=== PATIENT | female | born 1950 | race Caucasian/White ===

== ENCOUNTER 2025-03-19 16:25 | Emergency (ER) | payer MEDICARE, SELFPAY ==
--- OUTSIDE RECORDS SUMMARY | 2021-05-13 10:13 | XMS_ITS | Continuity of Care Document ---
Author Organization [facility] Address [address] [place] [phone] Phone Care Team Providers Care Integration Software Engineer Name Role Phone Will Robert ECKERT Unavailable Unavailabl e Allergies, Adverse Reactions, Alerts Substance Reaction Status Criticality No Known Allergies Active No Inform ation Medications Medication Instructions Dosage Effective Dates (start - stop) Status Comments GABAPENTIN 300 MG CAPSULE *PER QUENTIN*TAKE 4 CAPSULES BY ORAL ROUTE 3 TIMES EVERY DAY. INCREASE GRADUALLY DIRECTED 600 MG - Active CYCLOBENZAPRINE HCL (unknown strength) take 1 tablet by ORAL route 2 times every day prn Not Available - Active Cymbalta 60 mg capsule,delayed release take 1 capsule by oral route 2 times every day 60 MG - Active WELLBUTRIN (unknown strength) take 1 tablet by oral route 2 times every day Not Available - Active Synthroid 200 mcg tablet take 1 tablet by oral route every day 200 MCG - Active Procedures Procedure Date BILATERAL N BLOCK INJ, OCCIPTAL 015 Lidocaine injection Betamethasone acet&sod phosp OFFICE/OUTPATIENT VISIT, EST OFFICE/OUTPATIENT VISIT, NEW Advance Directives Directive Yes / No Effective Date File Name No Information Encounters Encounter Description Practice Location Reason(s) For Visit Diagnoses Date Provider Providers Copied on Encounter [facility], [address] [place] [address], [id number], [place] tel:[phone] [facility] No Information 2 Will Robert. [address], [place], [id number], [place]. tel:[phone] [facility], [address] [place] [address], [place], [id number], [place] tel:[phone] [facility] [place] No Information Jun- 5 No Information [facility], [address] [place] [address], [id number], [place] tel:[phone] [facility] [place] Occipital neuralgia Mar-2 5 [facility]. [address], [place], [id number], [place]. tel:[phone] Referring Provider: Wendy Taylor [facility] [address] [place], [address]. tel:[phone] OFFICE/OUTPAT IENT VISIT, [facility], [address] [place] [address], [id number], [place] tel:[phone] [facility] [place] left shoulder pain (chief complaint)N wendy pain (chief complaint)h eadache (chief complaint) Occipital neuralgiaOsteo arthrosis, generalized, involving unspecified sitePain in joint involving shoulder regionMuscle wastingCarpal Tunnel Syndrome May-2 5 No Information Referring Provider: Emilie Diop [facility] [address] [place], [address]. tel:[phone] OFFICE/OUTPAT IENT VISIT, [facility], [address] [place] [address], [id number], [place] tel:[phone] [facility] [place] Neck pain (chief complaint)l eft shoulder pain (chief complaint) Muscle wastingPain in joint involving shoulder regionOsteoart hrosis, generalized, involving unspecified siteCarpal Tunnel Syndrome Mar-0 5 No Information Referring Provider: Wendy Taylor [facility] [address] [place], [address]. tel:[phone] Family History Family Member Type Diagnosis Age At Onset No Information Payers Payer name Insurance type Covered republican ID Authoriza tion(s) Medicare [place] [id number] [facility] [id number] Social History Type Description Quantity Date Captured Comments Sex Female Smoking Status No Information Chief Complaint And Reason For Visit No Information Reason For Referral Reason For Referral No Information History Of Present Illness Encounter Date Complaint History Of Prese nt Illness headache Location is fron raghav left, frontal right, ocular left, ocular right, temporal left, temporal right and occipital. There is radiation to anterior and neck. The describes it as blinding and throbbing. Symptom is aggravated by head position. Relieving factors include heat and position. Associated symptoms include neck stiffness and visual aura. Neck pain The severity of the problem is moderate. Duration: chronic. The problem has worsened. The frequency of pain is constant. Location of pain is bilateral anterior neck, bilateral lateral neck, bilateral posterior neck and left shoulder. There is radiation of pain to the left upper arm, left elbow, bilateral forearm, bilateral wrist and bilateral hand. The patient describes the pain as aching, burning, sharp and tingling. Aggravating factors include lifting, rotation and turning head. Relieving factors include heating pad. 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 Therapist may consider TENS unit.We again discussed referral to an orthopedist for surgical consultation of bilateral carpal tunnel syndrome.May consider RFA for cervical pain; this was briefly discussed today. Patient reports increased headaches related to increased muscle tension.She has successfully titrated gabapentin dose to 1800 mg/day. Appointment scheduled 08/13 at [place]. Gabapentin increased to goal dose of 1800 mg/day; verbal and written directions provided for titration. Medication risks, benefits and side effects were discussed with the patient. The patient verbalized an understanding of the plan. left shoulder pain Duration: chr onic. Location: left shoulder. Neck pain Onset: 6 years a go. The problem is severe. Duration: chronic. The frequency of pain is constant. Location of pain is bilateral anterior neck, bilateral posterior neck and left shoulder. There is radiation of pain to the left upper arm, left elbow, bilateral forearm, bilateral wrist, bilateral hand and bilateral 5th finger. The patient describes the pain as burning, sharp and Numbness. Relieving factors include rest. left shoulder pain (comments) Ms Venus Daniel presents for a new patient evaluation, referred by Dr. Taylor of [facility], for neck and left arm pain. Patient states the greatest location of pain is her lateral deltoid, however, as pain worsens, severity is diffuse of the upper arm. 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 She states she has since favored this arm, utilizing her left upper extremity infrequently. She has had her orthopedic surgeon perform imaging post-surgery; patient states no anomoly was noted by the provider. A recent EMG, by patient report, did state patient has bilateral carpal tunnel syndrome; she has not pursued treatment for this. She states she has performed physical therapy in the past which has not provided any relief; she does work out at the [facility] 3-5 days/week. Epidural steroid injections have been administered to cervical spine without relief; patient does state MRI has shown narrowing of where my spinal nerves are. Patient currently is taking gabapentin 300 mg tid and has never trialed a higher dose. She states Lyrica was trialed in the past with adverse effects. She currently has prescription for oxycodone, prescribed last summer. Patient states she infrequently uses this; a dose taken over caused a severe headache that sent patient to the ED. Of note, patient has also been referred to a specialist at [place] for evaluation; this appointment is in July 2014. left shoulder pain Onset: 5 year s ago. Duration: chronic. Severity level is moderate-severe. It occurs constantly and is fluctuating. Location: left shoulder. The pain radiates to the left arm. The pain is burning, numbness and tingling. Context: left shoulder replacement. The pain is aggravated by lifting. The pain is relieved by heat and Immobility. Functional Status Date Functional Assessmen t No Information Instructions Date Instruction Additional Infor mation No Information Assessments Type Assessment Date No Information Patient Care Teams Name Effective Dates (start - stop) Status Members No Information
--- OUTSIDE RECORDS SUMMARY | 2022-06-29 06:33 | XMS_ITS | Continuity of Care Document ---
Author Organization [facility] Address [address] [address] [place] [address] Phone Care Team Providers Care Market Asset Protection Manager Name Role Phone John Yu MD Unavailable Unavailabl e Allergies, Adverse Reactions, Alerts Substance Reaction Status Criticality No Known Allergies Active No Inform ation Medications Medication Instructions Dosage Effective Dates (start - stop) Status Comments mirtazapine 7.5 mg tablet take 1 tablet by oral route every day at bedtime 7.5 MG - Active nortriptyline 10 mg capsule take 1 capsule by oral route every day at bedtime 10 MG - Active levothyroxine 100 mcg capsule take 1 capsule by oral route every day 100 MCG - Active methocarbamol 500 mg tablet take 2 tablet by oral route 4 times every day 1000 MG - Active omeprazole 20 mg tablet,delayed release - Active triamcinolone acetonide 0.1 % lotion apply by topical route 2 times every day a thin layer to the affected area(s) 0.00 - Active ketoconazole 2 % topical cream apply by topical route every day to the affected area(s) 0.00 - Active Wellbutrin XL 150 mg 24 hr tablet, extended release take 1 tablet by oral route every day 150 MG - Active Tums 200 mg calcium (500 mg) chewable tablet - Active acetaminophen 500 mg capsule take 1 capsule by oral route every 6 hours as needed 500 MG Dec-09-2022 - Active amlodipine 5 mg tablet take 1 tablet by oral route every day 5 MG - Active cholecalciferol (vitamin D3) 50 mcg (2,000 unit) capsule take 1 capsule by oral route every day after completion of 8 weeks of the 50,000IU 1 capsule - Active furosemide 20 mg tablet take 1 tablet by oral route every day 20 MG - Active diclofenac 1 % topical gel apply 2 gram by topical route 4 times every day to the affected area(s) 2.00 gram - Active pantoprazole 40 mg tablet,delayed release take 1 tablet by oral route every day 40 MG - Active Procedures Procedure Date Offic/outpt E&m [facility] Wojciech 2 Advance Directives Directive Yes / No Effective Date File Name No Information Encounters Encounter Description Practice Location Reason(s) For Visit Diagnoses Date Provider Providers Copied on Encounter [facility], [address] [address], [place], [id number], [place] tel:[phone] [facility] No Information 3 Anuj Lopez. [address] [facility], [facility] [address], [place], [place], [id number], [place]. tel:[phone] Offic/outpt E&m [facility], [address] [address], [place], [id number], [place] tel:[phone] [facility] Comment (chief complaint) Incontinence of feces, unspecified fecal incontinence typeChest wall painGastroesophag eal reflux disease, unspecified whether esophagitis presentBloating 2 No Information Referring Provider: Chayito Oneil, [address], [place], [address]. tel:[phone] [facility], [address] [address], [place], [id number], [place] tel:[phone] No Information 2 No Information Referring Provider: Chayito Oneil, [address], [place], [address]. tel:[phone] Family History Family Member Type Diagnosis Age At Onset No Information Immunizations Vaccine Date Status Comments SARS-COV-2 (COVID-19) vaccin e, mRNA, spike protein, LNP, bivalent booster, preservative free, 30 mcg/0.3 mL dose, jt-sucrose formulation administered Note: [facility] bi-d irectional interface ; Source: Other Registry influenza, high-dose seasona l, quadrivalent, .7mL dose, preservative free administered Note: [facility] bi-direct ional interface ; Source: Other Registry SARS-COV-2 (COVID-19) vaccin e, mRNA, spike protein, LNP, preservative free, 30 mcg/0.3mL dose administered Note: [facility] bi-direct ional interface ; Source: Other Registry SARS-COV-2 (COVID-19) vaccin e, mRNA, spike protein, LNP, preservative free, 100 mcg/0.5mL dose or 50 mcg/0.25mL dose administered Note: [facility] bi -directional interface ; Source: Other Registry influenza, high-dose seasona l, quadrivalent, .7mL dose, preservative free administered Note: [facility] bi-direct ional interface ; Source: Other Registry SARS-COV-2 (COVID-19) vaccin e, mRNA, spike protein, LNP, preservative free, 100 mcg/0.5mL dose or 50 mcg/0.25mL dose administered Note: [facility] bi -directional interface ; Source: Other Registry SARS-COV-2 (COVID-19) vaccin e, mRNA, spike protein, LNP, preservative free, 100 mcg/0.5mL dose or 50 mcg/0.25mL dose administered Note: [facility] bi -directional interface ; Source: Other Registry influenza, high-dose seasona l, quadrivalent, .7mL dose, preservative free administered Note: [facility] bi-direct ional interface ; Source: Other Registry zoster vaccine recombinant administered N ote: [facility] bi-directional interface ; Source: Other Registry influenza, high dose seasona l, preservative-free administered Note: [facility] bi-direct ional interface ; Source: Other Registry influenza, high dose seasona l, preservative-free administered Note: [facility] bi-direct ional interface ; Source: Other Registry influenza, high dose seasona l, preservative-free administered Note: [facility] bi-direct ional interface ; Source: Other Registry Pneumovax 23 administered Note: [facility] bi-d irectional interface ; Source: Other Registry influenza, high dose seasona l, preservative-free administered Note: [facility] bi-direct ional interface ; Source: Other Registry influenza, high dose seasona l, preservative-free administered Note: [facility] bi-direct ional interface ; Source: Other Registry Prevnar 13 administered Note: [facility] bi-d irectional interface ; Source: Other Registry zoster vaccine, live administered Note: [facility] bi-directional interface ; Source: Other Registry Influenza, injectable,quadrivalent, preservative free, pediatric administered Note: [facility] bi-directional interface ; Source: Other Registry Influenza, seasonal, injecta ble, preservative free administered Note: [facility] bi-direct ional interface ; Source: Other Registry Influenza, seasonal, injecta ble, preservative free administered Note: [facility] bi-direct ional interface ; Source: Other Registry Pneumovax 23 administered Note: [facility] bi-d irectional interface ; Source: Other Registry tetanus toxoid, reduced diphtheria toxoid, and acellular pertussis vaccine, adsorbed administered Note: [facility] b i-directional interface ; Source: Other Registry influenza virus vaccine, unspecified formulation administered Note: [facility] bi-di rectional interface ; Source: Other Registry influenza virus vaccine, unspecified formulation administered Note: [facility] bi-di rectional interface ; Source: Other Registry influenza virus vaccine, unspecified formulation administered Note: [facility] bi-di rectional interface ; Source: Other Registry influenza virus vaccine, unspecified formulation administered Note: [facility] bi-di rectional interface ; Source: Other Registry influenza virus vaccine, unspecified formulation administered Note: [facility] bi-di rectional interface ; Source: Other Registry Influenza, seasonal, injectable administe red Note: [facility] bi- directional interface ; Source: Other Registry Influenza, seasonal, injectable administe red Note: [facility] bi- directional interface ; Source: Other Registry Influenza, seasonal, injectable administe red Note: [facility] bi- directional interface ; Source: Other Registry Payers Payer name Insurance type Covered alliance party ID Authoriza tion(s) [employer] [facility] [id number] Social History Type Description Quantity Date Captured Comments Sex Female Smoking Status No Information Chief Complaint And Reason For Visit No Information Reason For Referral Reason For Referral No Information Plan Of Treatment Date Type Action Status Referral Ordered: Breath Test Fructose Appointment date/timeframe: 03/15/2022 [id number] Ordered: Breath Test Glucose Appointment date/timeframe: 03/15/2022 ordered History Of Present Illness Encounter Date Complaint History Of Prese nt Illness Comment Arely is a 71-y ear-old female who was referred by Dr. Lawton for evaluation of fecal incontinence.The patient has primary medical history including arthritis, moderate depression, bilateral extremity edema, hypothyroidism, and incontinence of feces.Primary care note was reviewed from Dr. Lawton on 02/27/2022. At that time, the patient was re-establishing care and reporting fecal incontinence for the past 6-9 months, reporting that she sees some fecal matter in between her bowel movements. She has several bowel movements per day, denies any diarrhea, melena, or blood in her stools. She also reports urinary incontinence, which has been chronic.Currently, the patient reports she has been having chest pain. She states pain can be on the left side or right side or just central on top of her sternum. At times, her pain can be reproducible with pressing on her chest. She states her pain is not related to food intake. Food does not worsen or improve her pain. She does not notice heartburn or reflux symptoms. She states she at times has dysphagia, but that is very high up in her oropharynx and this is related secondary to past neck surgeries. She denies any other dysphagia or sensation of food getting stuck, midsternum or lower. She does have worsening chest pain with exertion as well as with deep breathing. She currently takes omeprazole 20 mg per day. She states she has had past upper endoscopies and colonoscopies with Emilie Summers. She states she is up-to-date with colon cancer screening. She believes, it was about 2 years ago and normal.In regards to the patient's fecal incontinence, she thought this was just related to old age. She also has some urinary incontinence. She states intermittently she will have some [place] type 7 stools noted in her underwear, which she states is embarrassing. This will happen in between bowel movements. The patient does report majority of her stools are [place] type 4, normal formed stools. She can have up to 5 stools in a day. This is affecting quality of life.The patient denies any change in bowel pattern, this has been going on for several years now. She denies any blood in her stools, hematochezia, melena, unintentional weight loss. She does report lots of musculoskeletal pain in general. She states she has had a change in her overall mobility now requiring to use a scooter, previously using a walker. She reports ongoing back issues, hip and her back giving out as well as her legs giving out with. Following the appointment, the clinical assistant gm of content & delivery did come in and the patient did add onto her story that she at times will have a right lower quadrant pain that feels like a rolling sensation like there is a baby in there. Functional Status Date Functional Assessmen t No Information Instructions Date Instruction Additional Infor mation No Information Assessments Type Assessment Date No Information Patient Care Teams Name Effective Dates (start - stop) Status Members No Information
--- OUTSIDE RECORDS SUMMARY | 2025-02-02 07:54 | XMS_ITS | Encounter Summary ---
Author Organization [facility] Address [address] [address] Care Team Providers Care Manager Of Community Relations Name Role Phone [facility] Unavailable Merrick Olivas MD Unavailable Merrick lOivas MD Unavailable Lorna Hurt PA-C Unavailable Rebekah Lowery [facility] Unavailable Cayla Kumar SUPPORT SERVICES REP Unavailable [phone] Cayla Leavitt PA-C Unavailable Brenda Duval DO Unavailable [phone] Brenda Duval DO Unavailable [phone] Brooks Kang PhD LP Unavailable Cayla Leavitt PA-C Unavailable Saskia Lowe MD Primary Care Provider [phone] Saskia Lowe MD Unavailable Reason for Visit * ReasonCommentsHeadache Encounter Details DateTypeDepartmentCare Team (Latest Contact Info)Vbrhzhzkdke20/09/2025 7:54 AM CHLORINE PLANT OPERATOR - 02/02/2025 1:06 PM [facility] [address] [place] [address] Bogdan Deal MD [facility] [address] [place], [place] [phone] Nonintractable headache, unspecified chronicity pattern, unspecified headache type (Primary Dx); Neck pain on left side; Traumatic subdural hematoma, subsequent encounter; Sacral pain Discharge Disposition: Home or Self Care Social History Tobacco UseTypesPacks/DayYears UsedDateSmoking Tobacco: FormerCigarettes Smokeless Tobacco: Never Comments:Very small amount - 2 years. Infrequent Alcohol UseStandard Drinks/WeekCommentsNo0 (1 standard drink = 0.6 oz pure alcohol)B1300 Health LiteracyAnswerDate RecordedHow often do you need to have someone help you when you read instructions, pamphlets, or other written material from your doctor or pharmacy?Cxfgfisox37/13/2025UDIT-CAnswerDate RecordedQ1: How often do you have a drink containing alcohol?Never01/06/2025Q2: How many drinks containing alcohol do you have on a typical day when you are drinking?Patient does not drink01/06/2025Q3: How often do you have six or more drinks on one occasion?Never01/06/2025PHQ-2AnswerDate RecordedPHQ-2 Score3 01/31/2025[facility] - Occupational Stress QuestionnaireAnswerDate RecordedDo you feel stress - tense, restless, nervous, or anxious, or unable to sleep at night because yourmind is troubled all the time - these days?To some drlhhg8501/06/2025Exercise Vital SignAnswerDate Recorded On average, how many days per week do you engage in moderate to strenuous exercise (like a brisk walk)?3 days01/06/2025On average, how many minutes do you engage in exercise at this level?10 min01/06/2025dolescent EducationAnswerDate RecordedGetting School Help NeededNot on file12/17/2022Social ConnectionsAnswer Date RecordedHow often do you feel lonely or isolated from those around you? Often01/06/2025Food InsecurityAnswerDate RecordedWithin the past 12 months, did you worry that your food would run out before you got money to buy more?Yes 01/31/2025Within the past 12 months, did the food you bought just not last and you didn???t have money to getmore?Yes01/31/2025Housing StabilityAnswerDate RecordedDo you have housing? (Housing is defined as stable permanent housing and does not include staying outside in a car, in a tent, in an abandoned building, in an overnight assisted, or couch-surfing.)Yes01/31/2025re you worried about losing your housing?Yes01/31/2025Financial Resource StrainAnswerDate Recorded Within the past 12 months, have you or your family members you live with been unable to get utilities (heat, electricity) when it was really needed?Yes 01/31/2025Transportation NeedsAnswerDate RecordedWithin the past 12 months, has lack of transportation kept you from medical appointments, getting your medicines, non-medical meetings or appointments, work, or from getting things that you need?No01/31/2025Interpersonal SafetyAnswerDate RecordedDo you feel physically and emotionally safe where you currently live?No01/06/2025Within the past 12 months, have you been hit, slapped, kicked or otherwise physically hurt by someone?No01/06/2025Within the past 12 months, have you been humiliated or emotionally abused in other ways by your partner or ex-partner?No01/06/2025 CommentsNoSex and Gender InformationValueDate RecordedSex Assigned at BirthNot on fileLegal RlpRjbvpv62/04/2012 3:21 AM CSTGender IdentityNot on file Sexual OrientationNot on filedocumented as of this encounter Last Filed Vital Signs Vital SignReadingTime TakenCommentsBlood Tsuyrtwa163/6602/02/2025 10:00 AM CHLORINE PLANT OPERATOR Whvdl253902/02/2025 10:00 AM CNHMqmslshkmfw72.5 ??C (97.7 ??F)02/02/2025 7:57 AM CSTRespiratory Vzpd805904/04/2024 7:57 AM CSTOxygen Cwzycifssd62%02/02/2025 8:00 AM CSTInhaled Oxygen Concentration--Weight--Height--Body Mass Index--documented in this encounter Functional Status * Calculated C-SSRS Risk Score (Lifetime/Recent)AnswerDate of AssessmentAuthorNo Risk Fuwvadgyl51/09/2025 8:00 AM Danay Gonzalez RN * [place] Suicide Severity Rating Scale (Screener/Recent Self-Report)Question AnswerDate of AssessmentAuthor1. Wish to be (Past 1 Month)No02/02/2025 8:00 AM Danay Gonzalez RN2. Non-Specific Active Suicidal Thoughts (Past 1 Month)No02/02/2025 8:00 AM Danay Gonzalez RN6. Suicidal Behavior (Lifetime)No02/02/2025 8:00 AM Danay Gonzalez RN documented as of this encounter Discharge Instructions * Discharge Instructions* Bogdan Deal MD - 02/02/2025 9:55 AM CHLORINE PLANT OPERATOR Your CT imaging today fortunately does not show any worsening or new bleed. You can take Tylenol as needed for headache. Follow-up with your primary care doctor on Monday Discharge Instructions Headache You were seen today for a headache. Headaches may be caused by many different things such as muscletension, sinus inflammation, anxiety and stress, having too little sleep, too much alcohol, some medical conditions or injury. You may have a migraine, which is caused by changes in the blood vesselsin your head. At this time your provider does not find that your headache is a sign of anything almonte erous or life-threatening. However, sometimes the signs of serious illness do not show up right away. Generally, every Emergency Department visit should have a follow-up clinic visit with either a primary or a specialty clinic/provider. Please follow-up as instructed by your emergency provider today. Return to the Emergency Department if: You get a new fever of 100.4??F or higher. Your headache gets much worse. You get a stiff neck with your headache. You get a new headache that is significantly different or worse than headaches you have had before. You are vomiting (throwing up) and cannot keep food or water down. You have blurry or double vision or other problems with your eyes. You have a new weakness on one side of your body. You have difficulty with balance which is new. You or your family thinks you are confused. You have a seizure. What can I do to help myself? Pain medications - You may take a pain medication such as Tylenol?? (acetaminophen), Advil??, Motrin?? (ibuprofen) or Aleve?? (naproxen). Take a pain reliever as soon as you notice symptoms. Starting medications as soon as you start to have symptoms may lessen the amount of pain you have. Relaxing in a quiet, dark room may help. Get enough sleep and eat meals regularly. You may need to watch for certain foods or other things which may trigger your headaches. Keeping ajournal of your headaches and possible triggers may help you and your primary provider to identify things which you should avoid which may be causing your headaches. If you were given a prescription for medicine here today, be sure to read all of the information (including the package insert) that comes with your prescription. This will include important information about the medicine, its side effects, and any warnings that you need to know about. The pharmacist who fills the prescription can provide more information and answer questions you may have about the medicine. If you have questions or concerns that the pharmacist cannot address, please call or return to the Emergency Department. Remember that you can always come back to the Emergency Department if you are not able to see your regular provider in the amount of time listed above, if you get any new symptoms, or if there is anything that worries you. RINE PLANT OPERATOR RINE PLANT OPERATOR documented in this encounter Medications at Time of Discharge MedicationSigDispense QuantityRefillsLast FilledStart DateEnd Date acetaminophen (TYLENOL) 500 MG tablet Indications:Chronic bilateral low back pain with bilateral sciatica2 TABLETS (1000MG) BY MOUTH THREE TIMES DAILY 30 tablet 07/12/2024 amitriptyline (ELAVIL) 10 MG tablet Take 10 mg by mouth at bedtime. Through Psychiatrist amLODIPine (NORVASC) 5 MG tablet Indications:Essential hypertensionTake 1 tablet (5 mg) by mouth at bedtime. 90 tablet calcium carbonate-vitamin D (OSCAL) 250-3.125 MG-MCG TABS per tablet Take 1 tablet by mouth 2 times daily cycloSPORINE (RESTASIS) 0.05 % ophthalmic emulsion Indications:Dry eyesPlace 1 drop into both eyes 2 times daily. 5.5 mL 12/13/2024 diclofenac (VOLTAREN) 1 % topical gel Indications:Chronic bilateral low back pain without sciaticaApply 2 g topically 4 times daily as needed for moderate pain. 100 g escitalopram (LEXAPRO) 5 MG tablet Take 5 mg by mouth daily. Through Psychiatrist famotidine (PEPCID) 20 MG tablet Take 20 mg by mouth 2 times daily furosemide (LASIX) 20 MG tablet Indications:Leg edemaTake 1 tablet (20 mg) by mouth daily 30 tablet pantoprazole (PROTONIX) 40 MG EC tablet Take 40 mg by mouth 2 times daily. polyethylene glycol (MIRALAX) 17 GM/Dose powder Indications:Slow transit constipationTake 17 g (1 Capful) by mouth daily. 510 g 07/02/2024 Polyethylene Glycol 400 (BLINK TEARS) 0.25 % GEL Place 0.05 mLs into both eyes every 8 hours as needed (prn). QUEtiapine (SEROQUEL) 25 MG tablet Take 37.5 mg by mouth at bedtime. Through Psychiatrist senreyna-docusate (SENOKOT-S/PERICOLACE) 8.6-50 MG tablet Indications:Slow transit constipationTake 1 tablet by mouth daily. 90 tablet 07/08/2024 traMADol (ULTRAM) 50 MG tablet Take 50 mg by mouth every 6 hours as needed for severe pain. triamcinolone (KENALOG) 0.1 % external lotion Apply topically 2 times daily as needed for irritation.11/03/2023 calcium carbonate (SM ANTACID) 500 MG chewable tablet Indications:Gastroesophageal reflux disease without esophagitisTake 1 tablet (500 mg) by mouth daily. 30 tablet levothyroxine (SYNTHROID/LEVOTHROID) 112 MCG tablet Indications:Hypothyroidism, unspecified typeTake 1 tablet (112 mcg) by mouth daily. 90 tablet documented as of this encounter ED Notes * Bogdan Deal MD - 02/02/2025 8:12 AM CST Emergency Department Note History of Present Illness Chief Complaint Headache HPI Arely Daniel is a 74 year old female with a history of anemia, hypertension, hyperlipidemia, hypothyroidism, CHF, amongst others presenting with headache. The patient report she had a fall 4 days ago (01/29/25) that caused a subdural hematoma, for which she was hospitalized for a day. Since being discharged to her living facility, Arely has had a headache which has been progressively worse and no one has come to check on her. Aerly explains doing everything on her own has been too much. The headache has radiated pain to the left-side of her neck and tingling in the left cheek. Arely overall states she is upset with how her facility has handled treatment. Nothing taken to relieve the pain. Denies dizziness, speech or visual changes, nausea or vomiting. Independent Historian None Review of External Notes I reviewed the 01/30/25 discharge summary from [facility] for a traumatic subdural hematoma from a fall. Past Medical History Medical History and Problem List Anemia due to blood loss Anxiety Cervical spondylosis without myelopathy Depression DJD (degenerative joint disease), lumbar Dysphagia Essential hypertension Gait instability Gastroesophageal reflux disease without esophagitis Hyperlipidemia Insomnia Major depressive disorder Meniere's disease Mild cognitive impairment Hypothyroidism Physical deconditioning Primary osteoarthritis of left knee Psoriasis Major neurocognitive disorder Borderline personality disorder Diastolic congestive heart failure Chronic pain syndrome Avascular necrosis of bone Chronic dyspnea Edentulous Adrenal nodule Cortical senile cataract Aseptic bony necrosis Presbyopia Medications Acetaminophen Amlodipine Calcium carbonate Lasix Synthroid Miralax Senokot-S Amitriptyline Lexapro Pepcid Protonix Seroquel Surgical History Laparoscopic gastric bypass Appendectomy Right knee surgery Tonsillectomy and adenoidectomy Total knee arthroplasty, right (x4) Total knee arthroplasty, left Shoulder surgery Left foot surgery Retinal surgery, left Cataract removal, bilateral Cholecystectomy Physical Exam Patient Vitals for the past 24 hrs: BP Temp Temp src Pulse Resp SpO2 02/02/25 1000 (!) 149/66 -- -- 60 -- -- 02/02/25 0800 135/87 -- -- 69 -- 97 % 02/02/25 0759 135/87 -- -- 69 -- 98 % 02/02/25 0757 (!) 151/82 97.7 ??F (36.5 ??C) Oral 67 18 96 % Physical Exam General: Alert, no acute distress Neuro: Oriented x 4. Pupils 3 mm and reactive to light b/l. EOMI. No focal deficits; CN II-XII grossly intact. 5/5 BUE strength with flag signaler and elbow flexion/extension. 5/5 BLE strength with SLR and ankle dorsiflexion/plantarflexion. SILT to BUE/BLE. HEENT: Moist mucous membranes. Conjunctiva normal. TMs clear bilaterally CV: RRR, no m/r/g, skin warm and well perfused Pulm: CTAB, no wheezes/ronchi/rales. No acute distress, breathing comfortably MSK: Moving all extremities. No focal areas of edema, erythema; no midline spine tenderness; mild left side neck soft tissue tenderness, no masses. Skin: WWP, no rashes, skin color normal, no diaphoresis Diagnostics Lab Results Labs Ordered and Resulted from Time of ED Arrival to Time of ED Departure ISTAT BASIC CHEM ICA HEMATOCRIT POCT - Abnormal Result Value Chloride POCT 105 Potassium POCT 4.2 Sodium POCT 139 UREA NITROGEN POCT 12 Calcium, Ionized Whole Blood POCT 5.0 Glucose Whole Blood POCT 83 Anion Gap POCT 14.0 Hemoglobin POCT 10.5 (*) Hematocrit POCT 31 (*) Creatinine POCT 0.8 TOTAL CO2 POCT 26 Imaging CTA Head Neck with Contrast Final Result IMPRESSION: HEAD CT: 1. Less conspicuous degree of irregular hyperattenuation along the anterior falx, which could be new accounts representative of nonspecific dural thickening or a trace subdural hemorrhage. HEAD CTA: 1. No significant stenosis, aneurysm, or high flow vascular malformation identified. 2. Variant bois forte of Dumont anatomy as above. NECK CTA: 1. No hemodynamically significant stenosis in the neck vessels. 2. No evidence for dissection. Head CT w/o contrast Final Result IMPRESSION: HEAD CT: 1. Less conspicuous degree of irregular hyperattenuation along the anterior falx, which could be new accounts representative of nonspecific dural thickening or a trace subdural hemorrhage. HEAD CTA: 1. No significant stenosis, aneurysm, or high flow vascular malformation identified. 2. Variant bois forte of Dumont anatomy as above. NECK CTA: 1. No hemodynamically significant stenosis in the neck vessels. 2. No evidence for dissection. XR Sacrum and Coccyx 2 Views (Results Pending) EKG None Independent Interpretation I personally reviewed patient's CT head imaging fortunately without evidence of new or worsened intracranial bleed. ED Course Medications Administered Medications iohexol (OMNIPAQUE) 350 MG/ML injectable solution 71 mL (71 mLs Intravenous $Given 02/02/25 0834) sodium chloride (PF) 0.9% PF flush 100 mL (100 mLs Intravenous $Given 02/02/25 0834) acetaminophen (TYLENOL) tablet 1,000 mg (1,000 mg Oral $Given 02/02/25 1000) Procedures Procedures Discussion of Management None ED Course ED Course as of 02/02/25 1638 Sun Feb 02, 2025 0811 I obtained the history and examined the patient as noted above. 1031 I rechecked and updated the patient. 1031 I rechecked and updated the patient. 1102 I rechecked and updated the patient. 1102 I discussed discharge instructions with the patient. Patient agreeable to discharge. Additional Documentation None Medical Decision Making / Diagnosis [facility] Diagnoses: None MIPS None MDM Arely Daniel is a 74 year old female presenting to the emergency department for evaluation of headache and left-sided neck pain and ongoing sacral pain. She was seen here 4 days ago after a fall with noted subdural hematoma and on CT, stable after 6 hours of repeat imaging. She is otherwise neurologically intact without any focal deficits and denies any further falls. She has no midline cervical spine tenderness, cervical spine is cleared clinically. Given her recent fall and subdural hematoma, we did repeat imaging fortunately without evidence of worsening SDH. Vessel imaging without evidence of dissection or other acute abnormality. Radiograph of the sacrum without any acute pathology. She is otherwise ambulatory here in the emergency department. Overall suspect ongoing headache from recent head injury/subdural hematoma but fortunately there is no evidence of progression. No signs/symptoms worrisome for infection requiring LP. With reasonable clinical certainty I do feel that she safe to discharge home. Recommend Tylenol and close outpatient follow-up with her primary care doctor regarding her ER visit today and she is comfortable this plan. Discussed return precautions for theER. All questions were answered prior to discharge Disposition The patient was discharged. Diagnosis ICD-10-CM 1. Nonintractable headache, unspecified chronicity pattern, unspecified headache type R51.9 2. Neck pain on left side M54.2 3. Traumatic subdural hematoma, subsequent encounter S06.5XAD 4. Sacral pain M53.3 Discharge Medications New Prescriptions No medications on file Scribe Disclosure: Bettye Indira Hurtado, am serving as a scribe at 8:17 AM on 02/02/2025 to document services personally performed by Bogdan Deal MD based on my observations and the provider's statements tome. Bogdan Deal MD 02/02/25 1642 RINE PLANT OPERATOR * Danay Harper RN - 02/02/2025 7:55 AM CST Patient coming in via EMS from assisted living. fall, diagnosed with brain bleed, has had headache since then, headache progressively getting worse. ABCs intact. RINE PLANT OPERATOR * Astrid Chavez RN - 02/02/2025 7:54 AM CST Bed: ED16 Expected date: Expected time: Means of arrival: Comments: [address] 74F headache, discharged 2 days ago, hx of brain bleed RINE PLANT OPERATOR documented in this encounter Plan of Treatment DateTypeDepartmentCare Team (Latest Contact Info)Imlokqtfqsu76/12/2026 10:00 AM CSTOffice Visit [facility] [address] [place] [address] Cayla Leavitt PA-C [address] [place] [id number] documented as of this encounter Goals GoalPatient Goal TypeAssociated ProblemsRecent ProgressPatient-Stated?Author Establish Stable Housing Care PlanSDOH LACK OF STABLE [id number]%(04/28/2023 10:06 AM CHLORINE PLANT OPERATOR)NoReese, Alessia K, SUPPORT SERVICES REP Note: Barriers: I am unhappy where I am living. I have a cat. Strengths: I have a [facility] Elderly Waiver Headwaitress Patient expressed understanding of goal: Yes Action steps to achieve this goal: 1. I will begin looking for a new place to live. [facility] [place] will assist me with connecting with Elderly Waiver Headwaitress about this 2. I will find a resource that an help me with moving my belongings. Care coordination will assist as needed. [facility] ECC DEP WELCOME- GOAL TEMPLATE Care PlanMYC ECC DEP WELCOME- PROBLEM TEMPLATENoBackground, Analytics [facility] ECC DEP WELCOME- GOAL TEMPLATE Care PlanMYC ECC DEP WELCOME- PROBLEM TEMPLATENoBackground, Analyticsdocumented as of this encounter Procedures Procedure NamePriorityDate/TimeAssociated DiagnosisCommentsXR SACRUM AND COCCYX 2 QACZAFUVH47/09/2025 10:31 AM CHLORINE PLANT OPERATOR ISTAT BASIC CHEM ICA HEMATOCRIT QKWYKKUA33/09/2025 8:55 AM CHLORINE PLANT OPERATOR CTA HEAD NECK W HFWDZTDIIEKR86/09/2025 8:48 AM [address]INE PLANT [address]PERATOR [address] HEAD W/O PJPZWCEICSLH01/09/2025 8:48 AM CHLORINE PLANT OPERATOR EXTRA NJVKYSVE25/09/2025 8:04 AM CHLORINE PLANT OPERATOR EXTRA PURPLE TOP HHOVSQDJ07/09/2025 8:04 AM CHLORINE PLANT OPERATOR EXTRA GREEN TOP (LITHIUM HEPARIN) CCKUWZZZ60/09/2025 8:04 AM CHLORINE PLANT OPERATOR EXTRA RED TOP ARRBSPHT28/09/2025 8:04 AM CHLORINE PLANT OPERATOR EXTRA BLUE TOP WQOUCPNV38/09/2025 8:04 AM CHLORINE PLANT OPERATOR documented in this encounter Results * XR Sacrum and Coccyx 2 Views (02/02/2025 10:31 AM CHLORINE PLANT OPERATOR)Anatomical Region LateralityModalityAbdomen/PelvisDigital RadiographySpecimen (Source)Anatomical Location / LateralityCollection Method / VolumeCollection TimeReceived Time 02/02/2025 10:31 AM CHLORINE PLANT OPERATOR Impressions 02/02/2025 10:34 AM CHLORINE PLANT OPERATOR IMPRESSION: Mild degenerative arthrosis of both SI joints. Lower lumbar facet arthropathy and degenerative interspace narrowing. Diffuse osseous demineralization. No definite fracture. Narrative 02/02/2025 10:34 AM CHLORINE PLANT OPERATOR EXAM: XR SACRUM AND COCCYX 2 VIEWS LOCATION: [facility] DATE: 02/02/2025 INDICATION: Pain, recent fall COMPARISON: 01/29/2025 Procedure Note Pepito Belle, - 02/02/2025 EXAM: XR SACRUM AND COCCYX 2 VIEWS LOCATION: [facility] DATE: 02/02/2025 INDICATION: Pain, recent fall COMPARISON: 01/29/2025 IMPRESSION: Mild degenerative arthrosis of both SI joints. Lower lumbarfacet arthropathy and degenerative interspace narrowing. Diffuse osseous demineralization. No definite fracture. Authorizing ProviderResult TypeResult StatusEdonesimo Deal MDIMG DIAGNOSTIC IMAGING ORDERABLESFinal Result * (ABNORMAL) iStat Basic Chem ICA Hematocrit, POCT (02/02/2025 8:55 AM CHLORINE PLANT OPERATOR) ComponentValueRef RangeTest MethodAnalysis TimePerformed AtPathologist SignatureChloride [id number] mmol/L mmol/L104/04/2024 8:58 AM [facility] POCPotassium POCT4.23.4 - 5.3 mmol/L104/04/2024 8:58 AM [facility] POCSodium [id number] - 145 mmol/L104/04/2024 8:58 AM [facility] POCUREA NITROGEN VUNT351 - 23 mg/dL02/02/2025 8:58 AM [facility] POCCalcium, Ionized Whole Blood POCT5.04.4 - 5.2 mg/dL02/02/2025 8:58 AM [facility] POCGlucose Whole Blood [id number] - 99 mg/dL02/02/2025 8:58 AM [facility] POCAnion Gap POCT14.07.0-15.0 mmol/L mmol/L104/04/2024 8:58 AM [facility] POCHemoglobin POCT10.5(L)11.7 - 15.7 g/dL02/02/2025 8:58 AM [facility] POCHematocrit POCT31(L)35-47 % %02/02/2025 8:58 AM [facility] POCCreatinine POCT0.80.5 - 1.0 mg/dL02/02/2025 8:58 AM [facility] POCTOTAL CO2 BXVQ29guwq/L104/04/2024 8:58 AM [facility] POC Specimen (Source)Anatomical Location / LateralityCollection Method / Volume Collection TimeReceived TimeBlood, venousBLOOD SPECIMEN / Wedskyf8202/02/2025 8:55 AM CST02/02/2025 8:58 AM CHLORINE PLANT OPERATOR Narrative Authorizing ProviderResult TypeResult StatusEdonesimo KELLER POCTFinal ResultPerforming OrganizationAddressCity/State/ZIP CodePhone Number LABORATORY [facility] [address] (1st floor, no room number) [place] [address] * CTA Head Neck with Contrast (02/02/2025 8:48 AM CHLORINE PLANT OPERATOR)Anatomical Region LateralityModalityHead, SUBRAD CT NEURO, SUBRAD CT NEURO, UMP CT NEURO, RAD CT Computed TomographySpecimen (Source)Anatomical Location / LateralityCollection Method / VolumeCollection TimeReceived Time02/02/2025 8:48 AM CHLORINE PLANT OPERATOR Impressions 02/02/2025 9:45 AM CHLORINE PLANT OPERATOR IMPRESSION: HEAD CT: 1. ??Less conspicuous degree of irregular hyperattenuation along the anterior falx, which could be new accounts representative of nonspecific dural thickening or a trace subdural hemorrhage. HEAD CTA: 1. ??No significant stenosis, aneurysm, or high flow vascular malformation identified. 2. ??Variant bois forte of [place] anatomy as above. NECK CTA: 1. ??No hemodynamically significant stenosis in the neck vessels. 2. ??No evidence for dissection. Narrative 02/02/2025 9:45 AM CHLORINE PLANT OPERATOR EXAM: CT HEAD W/O CONTRAST, CTA HEAD NECK W CONTRAST LOCATION: [facility] DATE: 02/02/2025 INDICATION: Headache, recent fall with known SDH COMPARISON: 01/30/2025, 09/15/2022 CONTRAST: 71mL Omnipaque 350 TECHNIQUE: Head and neck CT angiogram with IV contrast. Noncontrast head CT followed by axial helical CT images of the head and neck vessels obtained during the arterial phase of intravenous contrastadministration. Axial 2D reconstructed images and multiplanar 3D MIP reconstructed images of the head and neck vessels were performed by the technologist. Dose reduction techniques were used. All stenosis measurements made according to NASCET criteria unless otherwise specified. FINDINGS: NONCONTRAST HEAD CT: INTRACRANIAL CONTENTS: No definitive intracranial hemorrhage is visualized. There is a unchanged hyperattenuating irregularity along the anterior falx which could be secondary to dural thickening butappears slightly less conspicuous when compared to the 01/30/[address] evidence of acute infarct. Mild presumed chronic small vessel ischemic changes. Mild to moderate degree of cerebral parenchymal volume loss. No hydrocephalus. VISUALIZED ORBITS/SINUSES/MASTOIDS: No intraorbital abnormality. No paranasal sinus mucosal disease. No middle ear or mastoid effusion. BONES/SOFT TISSUES: No acute abnormality. HEAD CTA: ANTERIOR CIRCULATION: No stenosis/occlusion, aneurysm, or high flow vascular malformation. origin of the right posterior cerebral artery from the anterior circulation. POSTERIOR CIRCULATION: No stenosis/occlusion, aneurysm, or high flow vascular malformation. Balanced vertebral arteries supply a normal basilar artery. DURAL VENOUS SINUSES: Expected enhancement of the major dural venous sinuses. NECK CTA: RIGHT CAROTID: No measurable stenosis or dissection. LEFT CAROTID: No measurable stenosis or dissection. VERTEBRAL ARTERIES: No focal stenosis or dissection. Balanced vertebral arteries. AORTIC ARCH: Classic aortic arch anatomy with no significant stenosis at the origin of the great vessels. NONVASCULAR STRUCTURES: Unremarkable. Procedure Note Rocky Mendez DO - 02/02/2025 EXAM: CT HEAD W/O CONTRAST, CTA HEAD NECK W CONTRAST LOCATION: [facility] DATE: 02/02/2025 INDICATION: Headache, recent fall with known SDH COMPARISON: 01/30/2025, 09/15/2022 CONTRAST: 71mL Omnipaque 350 TECHNIQUE: Head and neck CT angiogram with IV contrast. Noncontrast headCT followed by axial helical CT images of the head and neck vesselsobtained during the arterial phase of intravenous contrast administration.Axial 2D reconstructed images and multiplanar 3D MIP reconstructed images of the head and neck vessels were performed by the technologist. Dose reduction techniques were used. Allstenosis measurements made according to NASCET criteria unless otherwisespecified. FINDINGS: NONCONTRAST HEAD CT: INTRACRANIAL CONTENTS: No definitive intracranial hemorrhage isvisualized. There is a unchanged hyperattenuating irregularity along theanterior falx which could be secondary to dural thickening but appearsslightly less conspicuous when compared to the 01/30/[address] evidence of acute infarct. Mild presumed chronicsmall vessel ischemic changes. Mild to moderate degree of cerebralparenchymal volume loss. No hydrocephalus. VISUALIZED ORBITS/SINUSES/MASTOIDS: No intraorbital abnormality. Noparanasal sinus mucosal disease. No middle ear or mastoid effusion. BONES/SOFT TISSUES: No acute abnormality. HEAD CTA: ANTERIOR CIRCULATION: No stenosis/occlusion, aneurysm, or high flowvascular malformation. origin of the right posterior cerebral arteryfrom the anterior circulation. POSTERIOR CIRCULATION: No stenosis/occlusion, aneurysm, or high flowvascular malformation. Balanced vertebral arteries supply a normal basilarartery. DURAL VENOUS SINUSES: Expected enhancement of the major dural venoussinuses. NECK CTA: RIGHT CAROTID: No measurable stenosis or dissection. LEFT CAROTID: No measurable stenosis or dissection. VERTEBRAL ARTERIES: No focal stenosis or dissection. Balanced vertebralarteries. AORTIC ARCH: Classic aortic arch anatomy with no significant stenosis atthe origin of the great vessels. NONVASCULAR STRUCTURES: Unremarkable. IMPRESSION: HEAD CT: 1. Less conspicuous degree of irregular hyperattenuation along theanterior falx, which could be new accounts representative of nonspecific duralthickening or a trace subdural hemorrhage. HEAD CTA: 1. No significant stenosis, aneurysm, or high flow vascular malformation identified. 2. Variant bois forte of [place] anatomy as above. NECK CTA: 1. No hemodynamically significant stenosis in the neck vessels. 2. No evidence for dissection. Authorizing ProviderResult TypeResult AlisaEdonesimo Deal [facility] CT ORDERABLESFinal Result * Head CT w/o contrast (02/02/2025 8:48 AM CH[employer]INE PL[employer] OPERATOR)Anatomical RegionLaterality ModalityHead, SUBRAD CT NEURO, SUBRAD CT NEURO, UMP CT NEURO, RAD CTComputed TomographySpecimen (Source)Anatomical Location / LateralityCollection Method / VolumeCollection TimeReceived Time02/02/2025 8:48 AM [employer]INE [employer] OPERATOR Impressions 02/02/2025 9:45 AM CHL[employer]INE PLANT OPERATOR IMPRESSION: HEAD CT: 1. ??Less conspicuous degree of irregular hyperattenuation along the anterior falx, which could be new accounts representative of nonspecific dural thickening or a trace subdural hemorrhage. HEAD CTA: 1. ??No significant stenosis, aneurysm, or high flow vascular malformation identified. 2. ??Variant bois forte of [place] anatomy as above. NECK CTA: 1. ??No hemodynamically significant stenosis in the neck vessels. 2. ??No evidence for dissection. Narrative 02/02/2025 9:45 AM CHLORINE PLANT OPERATOR EXAM: CT HEAD W/O CONTRAST, CTA HEAD NECK W CONTRAST LOCATION: [facility] DATE: 02/02/2025 INDICATION: Headache, recent fall with known SDH COMPARISON: 01/30/2025, 09/15/2022 CONTRAST: 71mL Omnipaque 350 TECHNIQUE: Head and neck CT angiogram with IV contrast. Noncontrast head CT followed by axial helical CT images of the head and neck vessels obtained during the arterial phase of intravenous contrastadministration. Axial 2D reconstructed images and multiplanar 3D MIP reconstructed images of the head and neck vessels were performed by the technologist. Dose reduction techniques were used. All stenosis measurements made according to NASCET criteria unless otherwise specified. FINDINGS: NONCONTRAST HEAD CT: INTRACRANIAL CONTENTS: No definitive intracranial hemorrhage is visualized. There is a unchanged hyperattenuating irregularity along the anterior falx which could be secondary to dural thickening butappears slightly less conspicuous when compared to the 01/30/[address] evidence of acute infarct. Mild presumed chronic small vessel ischemic changes. Mild to moderate degree of cerebral parenchymal volume loss. No hydrocephalus. VISUALIZED ORBITS/SINUSES/MASTOIDS: No intraorbital abnormality. No paranasal sinus mucosal disease. No middle ear or mastoid effusion. BONES/SOFT TISSUES: No acute abnormality. HEAD CTA: ANTERIOR CIRCULATION: No stenosis/occlusion, aneurysm, or high flow vascular malformation. origin of the right posterior cerebral artery from the anterior circulation. POSTERIOR CIRCULATION: No stenosis/occlusion, aneurysm, or high flow vascular malformation. Balanced vertebral arteries supply a normal basilar artery. DURAL VENOUS SINUSES: Expected enhancement of the major dural venous sinuses. NECK CTA: RIGHT CAROTID: No measurable stenosis or dissection. LEFT CAROTID: No measurable stenosis or dissection. VERTEBRAL ARTERIES: No focal stenosis or dissection. Balanced vertebral arteries. AORTIC ARCH: Classic aortic arch anatomy with no significant stenosis at the origin of the great vessels. NONVASCULAR STRUCTURES: Unremarkable. Procedure Note Rocky Mendez - 02/02/2025 EXAM: CT HEAD W/O CONTRAST, CTA HEAD NECK W CONTRAST LOCATION: [facility] DATE: 02/02/2025 INDICATION: Headache, recent fall with known SDH COMPARISON: 01/30/2025, 09/15/2022 CONTRAST: 71mL Omnipaque 350 TECHNIQUE: Head and neck CT angiogram with IV contrast. Noncontrast headCT followed by axial helical CT images of the head and neck vesselsobtained during the arterial phase of intravenous contrast administration.Axial 2D reconstructed images and multiplanar 3D MIP reconstructed images of the head and neck vessels were performed by the technologist. Dose reduction techniques were used. Allstenosis measurements made according to NASCET criteria unless otherwisespecified. FINDINGS: NONCONTRAST HEAD CT: INTRACRANIAL CONTENTS: No definitive intracranial hemorrhage isvisualized. There is a unchanged hyperattenuating irregularity along theanterior falx which could be secondary to dural thickening but appearsslightly less conspicuous when compared to the 01/30/[address] evidence of acute infarct. Mild presumed chronicsmall vessel ischemic changes. Mild to moderate degree of cerebralparenchymal volume loss. No hydrocephalus. VISUALIZED ORBITS/SINUSES/MASTOIDS: No intraorbital abnormality. Noparanasal sinus mucosal disease. No middle ear or mastoid effusion. BONES/SOFT TISSUES: No acute abnormality. HEAD CTA: ANTERIOR CIRCULATION: No stenosis/occlusion, aneurysm, or high flowvascular malformation. origin of the right posterior cerebral arteryfrom the anterior circulation. POSTERIOR CIRCULATION: No stenosis/occlusion, aneurysm, or high flowvascular malformation. Balanced vertebral arteries supply a normal basilarartery. DURAL VENOUS SINUSES: Expected enhancement of the major dural venoussinuses. NECK CTA: RIGHT CAROTID: No measurable stenosis or dissection. LEFT CAROTID: No measurable stenosis or dissection. VERTEBRAL ARTERIES: No focal stenosis or dissection. Balanced vertebralarteries. AORTIC ARCH: Classic aortic arch anatomy with no significant stenosis atthe origin of the great vessels. NONVASCULAR STRUCTURES: Unremarkable. IMPRESSION: HEAD CT: 1. Less conspicuous degree of irregular hyperattenuation along theanterior falx, which could be new accounts representative of nonspecific duralthickening or a trace subdural hemorrhage. HEAD CTA: 1. No significant stenosis, aneurysm, or high flow vascular malformation identified. 2. Variant bois forte of [place] anatomy as above. NECK CTA: 1. No hemodynamically significant stenosis in the neck vessels. 2. No evidence for dissection. Authorizing ProviderResult TypeResult Mary Deal [facility] [place] ORDERABLESFinal Result * Extra Purple Top Tube (02/02/2025 8:04 AM CH[employer]INE PLANT OPERATOR)ComponentValueRef RangeTest MethodAnalysis TimePerformed AtPathologist SignatureHold LijlbnibEMI38/09/2025 9:17 AM [facility] LABORATORYSpecimen (Source)Anatomical Location / Laterality Collection Method / VolumeCollection TimeReceived TimeBloodBLOOD SPECIMEN / UnknownVenipuncture / Suolhnf6802/02/2025 8:04 AM CST02/02/2025 8:10 AM CHL[employer]INE PLANT OPERATOR Narrative Authorizing ProviderResult TypeResult [facility] HospitalBogdan Deal [facility] - BLOOD ORDERABLESFinal ResultPerforming OrganizationAddressCity/State/ZIP CodePhone Number [facility] [address] (1st floor, no room number) [place] [phone] [place] [address] * Extra Green Top (Nunda Heparin) Tube (02/02/2025 8:04 AM CH[employer]INE [employer]ANT OPERATOR)ComponentValue Ref RangeTest MethodAnalysis TimePerformed AtPathologist SignatureHold EwmqsxywMRP33/09/2025 9:17 AM [facility] LABORATORYSpecimen (Source)Anatomical Location / LateralityCollection Method / VolumeCollection TimeReceived Time BloodBLOOD SPECIMEN / UnknownVenipuncture / Uujuzxf1702/02/2025 8:04 AM CH[employer]INE PLANT OPERATOR 02/02/2025 8:10 AM CHL[employer]INE [employer]ANT OPERATOR Narrative Authorizing ProviderResult TypeResult Mary Deal [facility] - BLOOD ORDERABLESFinal ResultPerforming OrganizationAddressCity/State/ZIP CodePhone Number [facility] [address] Lab (1st floor, no room number) [place] [address] * Extra Red Top Tube (02/02/2025 8:04 AM CH[employer]INE [employer] OPERATOR)ComponentValueRef RangeTest Method Analysis TimePerformed AtPathologist SignatureHold LxuygdpyYWO69/09/2025 9:17 AM [facility] LABORATORYSpecimen (Source)Anatomical Location / LateralityCollection Method / VolumeCollection TimeReceived TimeBloodBLOOD SPECIMEN / Unknown Venipuncture / Vgbiazo7502/02/2025 8:04 AM CST02/02/2025 8:10 AM CHL[employer]INE PLANT OPERATOR Narrative Authorizing ProviderResult TypeResult StatusKobeonesimo Yong Toyin [facility] - BLOOD ORDERABLESFinal ResultPerforming OrganizationAddressCity/State/ZIP CodePhone Number [facility] [address] [facility] (1st floor, no room number) [place] [address] * Extra Blue Top Tube (02/02/2025 8:04 AM CHL[employer]INE [employer] OPERATOR)ComponentValueRef RangeTest Method Analysis TimePerformed AtPathologist SignatureHold CymkqmezVSX49/09/2025 9:17 AM [facility] LABORATORYSpecimen (Source)Anatomical Location / LateralityCollection Method / VolumeCollection TimeReceived TimeBloodBLOOD SPECIMEN / Unknown Venipuncture / Nycadib2002/02/2025 8:04 AM CST02/02/2025 8:10 AM CHL[employer]INE PLANT OPERATOR Narrative Authorizing ProviderResult TypeResult StatusBogdan Stevensald Toyin [facility] - BLOOD ORDERABLESFinal ResultPerforming OrganizationAddressCity/State/ZIP CodePhone Number [facility] [address] [facility] Lab (1st floor, no room number) [place] [address] documented in this encounter Visit Diagnoses Diagnosis Nonintractable headache, unspecified chronicity pattern, unspecified headache type- Primary Neck pain on left side Cervicalgia Traumatic subdural hematoma, subsequent encounter Sacral pain Disorders of sacrum documented in this encounter Administered Medications Medication OrderMAR ActionAction DateDoseRateSite acetaminophen (TYLENOL) tablet 1,000 mg 1,000 mg, Oral, ONCE, On 02/02/25 at 0955, For 1 dose, Maximum acetaminophen dose from all sources = 75 mg/kg/day not to exceed 4 gram $Given02/02/2025 10:00 AM CST1,000 mg iohexol (OMNIPAQUE) 350 MG/ML injectable solution 71 mL 71 mL, Intravenous, ONCE, On 02/02/25 at 0835, For 1 dose $Given02/02/2025 8:34 AM CST71 mLs Lidocaine (LIDOCARE) 4 % Patch 2 patch 2 patch, Transdermal, Administer over 12 Hours, ONCE, On 02/02/25 at 1110, For 1 dose, Apply patch(s) to left side neck. To prevent lidocaine toxicity, patient should be patch free for 12 hrs daily. Patches may be cut to smaller size prior to removing release liner. Reminder: Remove previous patch before applying new patch. NEVER APPLY HEAT OVER PATCH which increases absorption and may lead tolocal anesthetic toxicity. Do not apply over area where liposomal bupivacaine was injected for 96 hours post injection. Avoid heat exposure to application site or surrounding areas. This includes heat from external sources, such as heating pads, electric blankets, or other equipment. $Patch/Med Pozekqa4902/02/2025 11:14 AM CST2 patchesOther (see comments) sodium chloride (PF) 0.9% PF flush 100 mL 100 mL, Intravenous, ONCE, On 02/02/25 at 0835, For 1 dose $Given02/02/2025 8:34 AM CEN639 mLsdocumented in this encounter Active and Recently Administered Medications Times are shown in [employer]INE [employer] OPERATOR.Medication Order/ acetaminophen (TYLENOL) tablet 1,000 mg (COMPLETED) 1,000 mg, Oral, ONCE, On 02/02/25 at 0955, For 1 dose, Maximum acetaminophen dose from all sources = 75 mg/kg/day not to exceed 4 gram * 1000 ($Given - Provider: Danay Harper RN) iohexol (OMNIPAQUE) 350 MG/ML injectable solution 71 mL (COMPLETED) 71 mL, Intravenous, ONCE, On 02/02/25 at 0835, For 1 dose * 0834 ($Given - Provider: DENY Gomez) Lidocaine (LIDOCARE) 4 % Patch 2 patch 2 patch, Transdermal, Administer over 12 Hours, ONCE, On 02/02/25 at 1110, For 1 dose, Apply patch(s) to left side neck. To prevent lidocaine toxicity, patient should be patch free for 12 hrs daily. Patches may be cut to smaller size prior to removing release liner. Reminder: Remove previous patch before applying new patch. NEVER APPLY HEAT OVER PATCH which increases absorption and may lead tolocal anesthetic toxicity. Do not apply over area where liposomal bupivacaine was injected for 96 hours post injection. Avoid heat exposure to application site or surrounding areas. This includes heat from external sources, such as heating pads, electric blankets, or other equipment. * 1114 ($Patch/Med Applied - Provider: Brittany Melara RN - Comment: 1 applied to left side of neck/shoulder, and 1 to low back/tailbone area.) * 1306 (Due: Patch/Med Removed - Provider: Orders Generic Provider - Comment: Time automatically adjusted from order being discontinued) sodium chloride (PF) 0.9% PF flush 100 mL (COMPLETED) 100 mL, Intravenous, ONCE, On 02/02/25 at 0835, For 1 dose * 0834 ($Given - Provider: DENY Gomez) documented in this encounter Additional Health Concerns Active ProblemsNoted DateDiagnosed DateSDOH LACK OF STABLE TVGPPSL4403/30/2023[facility] DEP WELCOME- PROBLEM NBOHRQKN48/27/2025[facility] E[facility] DEP WELCOME- PROBLEM TEMPLATE 01/27/2025InfectionOnset DateLast IndicatedResolved 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 Source: [employer]. 11/25/2016AssessmentNoted TimePHQ-9 Depression Total Score: 12104/02/2024 12:17 PM CSTdocumented as of this encounter Care Teams Team MemberRelationshipSpecialtyStart DateEnd Date Saskia Lowe MD [address] [place] [address] PCP - GeneralInternal Medicine11/21/24 [facility] ([facility]), ([place])02/15/19 Merrick Olivas MD [address] [place] [address] [place] [address] MDCardiovascular Disease07/27/21 Merrick Olivas MD [address] [place] [address] [place] [address] MDCardiovascular Disease07/27/21 Lorna Hurt PA-C [address] [place] [address] [place] [id number] Physician AssistantUrology08/18/21 Rebekah Lowery, [facility] [address] [id number] PharmacistPharmacist10/13/21 Cayla Kumar LSW [facility] [address] [facility] [address] [place] [address] Lead Care CoordinatorPrimary Care - CC04/27/23 Cayla Leavitt PA-C [address] [place], [place] [id number] Physician AssistantEndocrinology, Diabetes, and Mjfkwucolv72/24/24 Brenda Duval DO [address] [place], [place] [address] PhysicianNeurology1/10/18 Brenda Duval DO [address] [place], [place] [address] Assigned Neuroscience Provider08/16/24 Brooks Kang, PhD LP [address] [place] [phone] Assigned Behavioral Health Provider11/16/24 Cayla Leavitt PA-C [address] [place] [address] Assigned Endocrinology 10/16/24 Saskia Lowe MD [address] [place] [address] Assigned PCP01/23/25documented as of this encounter
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
--- OUTSIDE RECORDS SUMMARY | 2025-02-12 10:00 | XMS_ITS | Encounter Summary ---
Author Organization [place] Address [address] [address] Care Team Providers Care Tax Staff Accountant Name Role Phone [facility] Unavailable Merrick Olivas MD Unavailable Merrick Olivas MD Unavailable Lorna Hurt PA-C Unavailable Rebekah Lowery [facility] Unavailable Cayla Kumar POUND KEEPER Unavailable [phone] Cayla Leavitt PA-C Unavailable Brenda Duval DO Unavailable [phone] Brenda Duval DO Unavailable [phone] Brooks Kang PhD LP Unavailable Cayla Leavitt PA-C Unavailable Saskia Lowe MD Primary Care Provider Saskia Lowe MD Unavailable Reason for Visit * ReasonCommentsPain Encounter Details DateTypeDepartmentCare Team (Latest Contact Info)Hivumdqwhsp38/19/2025 10:00 AM CSTOffice Visit [address] [place] [address] Saskia Lowe MD [address] [place] [address] Sacrococcygeal pain (Primary Dx); Chronic pain syndrome; Essential hypertension; Hypothyroidism, unspecified type Social History Tobacco UseTypesPacks/DayYears UsedDateSmoking Tobacco: FormerCigarettes Smokeless Tobacco: Never Comments:Very small amount - 2 years. Infrequent Alcohol UseStandard Drinks/WeekCommentsNo0 (1 standard drink = 0.6 oz pure alcohol)B1300 Health LiteracyAnswerDate RecordedHow often do you need to have someone help you when you read instructions, pamphlets, or other written material from your doctor or pharmacy?Smkpgmhcg13/13/2025UDIT-CAnswerDate RecordedQ1: How often do you have a drink containing alcohol?Never01/06/2025Q2: How many drinks containing alcohol do you have on a typical day when you are drinking?Patient does not drink01/06/2025Q3: How often do you have six or more drinks on one occasion?Never01/06/2025PHQ-2AnswerDate RecordedPHQ-2 Score3 01/31/2025Finintermountain medical center [place] of Occupational Health - Occupational Stress QuestionnaireAnswerDate RecordedDo you feel stress - tense, restless, nervous, or anxious, or unable to sleep at night because yourmind is troubled all the time - these days?To some apdhqw8301/06/2025Exercise Vital SignAnswerDate Recorded On average, how many [...] in an abandoned building, in an overnight snf, or couch-surfing.)Yes01/31/2025re you worried about losing your [...] InformationValueDate RecordedSex Assigned at BirthNot on fileLegal ObfAljnjt15/04/2012 3:21 AM CSTGender IdentityNot on file Sexual OrientationNot on filedocumented as of this encounter Last Filed Vital Signs Vital SignReadingTime TakenCommentsBlood Eflsamvw598/7702/12/2025 9:37 AM SERVICE DIRECTOR Ezvqt631902/12/2025 9:37 AM YNTUszllvvkqyt34.6 ??C (97.9 ??F)02/12/2025 9:37 AM CSTRespiratory Ovzh4826 9:37 AM CSTOxygen Uggeqzprou02%02/12/2025 9:37 AM CSTInhaled Oxygen Concentration--Vxayxm402.3 kg (230 lb)02/12/2025 9:37 AM IERRudobi993.5 cm (5' 2)02/12/2025 9:37 AM CSTBody Mass Index42.0702/12/2025 9:37 AM CSTdocumented in this encounter Progress Notes * Saskia Lowe MD - 02/12/2025 10:00 AM CST Assessment & Plan Sacrococcygeal pain We reviewed x-ray results and this was discussed with the patient. Patient does receive tramadol which is prescribed by the pain clinic. Patient missed her last appointment with the pain clinic. A communication has been started with social group worker to help reschedule appointment and arrange rides to and from appointment. Baclofen medication can be used as needed for muscle spasms. Medication use and side effect profile discussed with the patient. - baclofen (LIORESAL) 10 MG tablet; Take 1 tablet (10 mg) by mouth 3 times daily as needed for muscle spasms. Chronic pain syndrome Follows up with pain clinic as above. Continue with tramadol as needed for pain. Essential hypertension Blood pressure reviewed, within target. Continue current antihypertensive regimen. Hypothyroidism, unspecified type Patient has not had repeat lab work since recent medication dose adjustments in levothyroxine. Encouraged to complete lab work after today's visit. The longitudinal plan of care for the diagnosis(es)/condition(s) as documented were addressed during this visit. Due to the added complexity in care, I will continue to support Arely in the subsequent management and with ongoing continuity of care. 43 minutes spent by me on the date of the encounter doing chart review, history and exam, documentation and further activities per the note. Subjective Arely is a 74 year old, presenting for the following health issues: Pain 02/12/2025 9:36 AM Additional Questions Roomed by KERRY Clifford Accompanied by Self 02/12/2025 9:36 AM Patient Reported Additional Medications Patient reports taking the following new medications No Musculoskeletal Problem History of Present Illness Reason for visit: Blood blead Symptom onset: 3-7 days ago Symptoms include: Sore neck back Symptom intensity: Severe Symptom progression: Worsening Had these symptoms before: No She is taking medications regularly. Patient comes in today for follow-up. Patient reported having had a fall on 01/29/2025. CT head showed small left anterior parafalcine subdural hematoma measuring 2 mm. Patient was admitted to the observation unit, repeat CT head was stable and patient was discharged back to assisted living facility. Had a return visit to the ED on 02/02/2025 due to persistent headache symptoms,repeat CT scan did not show worsening SDH. Patient has been having concerns of ongoing tailbone pain. Has been participating in PT twice weekly. Has tramadol that patient receives from pain clinic. States that she probably is using it, unsureof what medications are given to her by [facility]. Missed last appointment with 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 Lower lumbar facet arthropathy and degenerative interspace narrowing. Diffuse osseous demineralization. No definite fracture. Patient has expressed the lack of care form [facility] in the past. States it is still the same. Has a tour to [facility] tomorrow. Review of Systems Constitutional, HEENT, cardiovascular, pulmonary, gi and gu systems are negative, except as otherwise noted. Objective Ht 1.575 m (5' 2) LMP (LMP Unknown) No BMI 42.07 kg/m?? Body mass index is 42.07 kg/m??. Physical Exam GENERAL: alert and no distress RESP: lungs clear to auscultation - no rales, rhonchi or wheezes CV: regular rate and rhythm, normal S1 S2 MS: no gross musculoskeletal defects noted, no edema NEURO: Normal strength and tone, mentation intact and speech normal PSYCH: mentation appears normal, affect normal Signed Electronically by: Saskia Lowe MD ICE DIRECTOR documented in this encounter Plan of Treatment DateTypeDepartmentCare Team (Latest Contact Info)Hnqdigipzvy14/12/2026 10:00 AM CSTOffice Visit [facility] [address] [place] [address] Cayla Leavitt PA-C [address] [place], [place] [address] documented as of this encounter Goals GoalPatient Goal TypeAssociated ProblemsRecent ProgressPatient-Stated?Author Establish Stable Housing Care PlanSDOH LACK OF STABLE [id number]%(04/28/2023 10:06 AM SERVICE DIRECTOR)Alessia Rutledge, POUND KEEPER Note: Barriers: I am unhappy where I am living. I have a cat. Strengths: I have a [facility]/ Elderly Waiver Clerical Order Filler Patient expressed understanding of goal: Yes Action steps to achieve this goal: 1. I will begin looking for a new place to live. Cut In Station Operator will assist me with connecting with Elderly Waiver Clerical Order Filler about this 2. I will find a resource that an help me with moving my belongings. Care coordination will assist as needed. MYC ECC DEP WELCOME- GOAL TEMPLATE Care PlanMYC ECC DEP WELCOME- PROBLEM TEMPLATENoBackground, Analytics MYC ECC DEP WELCOME- GOAL TEMPLATE Care PlanMYC ECC DEP WELCOME- PROBLEM TEMPLATENoBackground, Analyticsdocumented as of this encounter Visit Diagnoses Diagnosis Sacrococcygeal pain- Primary Other disorder of coccyx Chronic pain syndrome Essential hypertension Unspecified essential hypertension Hypothyroidism, unspecified type documented in this encounter Additional Health Concerns Active ProblemsNoted DateDiagnosed DateSDOH LACK OF STABLE TVUUOGL6403/30/2023MYC ECC DEP WELCOME- PROBLEM FTAHHLPB73/27/2025MYC ECC DEP WELCOME- PROBLEM TEMPLATE 01/27/2025InfectionOnset DateLast IndicatedResolved 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 Source: [employer]. 11/25/2016AssessmentNoted TimePHQ-9 Depression Total Score: 12104/02/2024 12:17 PM CSTdocumented as of this encounter Care Teams Team MemberRelationshipSpecialtyStart DateEnd Date Saskia Lowe MD [address] [place] [address] PCP - GeneralInternal Medicine11/21/24 [facility] ([place])02/15/19 Merrick Olivas MD [address] [facility] [address] [place] [address] MDCardiovascular Disease07/27/21 Merrick Olivas MD [address] [place] [phone] MDCardiovascular Disease07/27/21 Lorna Hurt PA-C [address] [place] [address] Physician AssistantUrology08/18/21 Rbeekah Lowery, [facility] [address] [address] PharmacistPharmacist10/13/21 Cayla Kumar [employer] [address] [facility] [address] [place], [place] [address] Lead Care CoordinatorPrimary Care - CC04/27/23 Cayla Leavitt PA-C [address] [place] [address] Physician AssistantEndocrinology, Diabetes, and Xuiijeesvm62/24/24 Brenda Duval DO [address] [place] [phone] PhysicianNeurology1/10/18 Brenda Duval DO [address] [place] [phone] Assigned Neuroscience Provider08/16/24 Brooks Kang, PhD LP [address] [place] [phone] Assigned Behavioral Health Provider11/16/24 Cayla Leavitt PA-C [address] [place] [address] Assigned Endocrinology Provider10/16/24 Saskia Lowe MD [address] [place], [place] [address] Assigned PCP01/23/25documented as of this encounter
--- OUTSIDE RECORDS SUMMARY | 2025-03-10 03:03 | XMS_ITS | Continuity of Care Document ---
Author Organization [facility] Address [address] [place] [address] Phone Care Team Providers Care Personal Trainer Name Role Phone RN, RN Unavailable Unavailable Allergies, Adverse Reactions, Alerts Substance Reaction Status Criticality No Known Allergies Active No Inform ation Medications Medication Instructions Dosage Effective Dates (start - stop) Status Comments tizanidine 2 mg tablet take 1 Tablet by Oral route 3 times every day 1 Tablet - Active lidocaine 4 % topical patch - Active triamcinolone acetonide 0.1 % lotion apply by topical route 2 times every day a thin layer to the affected area(s) 0.00 - Active tramadol 50 mg tablet take 1 tablet by oral route every 6 hours as needed 50 MG - Active Synthroid 100 mcg tablet take 1 tablet by oral route every day 100 MCG - Active quetiapine 25 mg tablet take 1 tablet by oral route 2 times every day 25 MG - Active pantoprazole 40 mg tablet,delayed release take 1 tablet by oral route every day 40 MG - Active nortriptyline 10 mg capsule take 1 Capsule by oral route every bedtime 10 MG - Active loperamide 2 mg tablet take 2 tablet by oral route after 1st loose stool and 1 tablet (2 mg) after each next bowel movement; do not exceed 16 mg in 24hrs 4 MG - Active ibuprofen 400 mg tablet take 1 tablet by oral route every 3 - 6 hours as needed 400 MG - Active furosemide 20 mg tablet take 1 Tablet by oral route every day 20 MG - Active famotidine 20 mg tablet take 1 tablet by oral route 2 times every day 20 MG - Active cyclosporine 0.05 % eye drops in a dropperette instill 1 drop by ophthalmic route every 12 hours into affected eye(s) 1.00 drop - Active bupropion HCl XL 150 mg 24 hr tablet, extended release take 1 tablet by oral route every day 150 MG - Active Blink Tears 0.25 % eye drops - Active amlodipine 5 mg tablet take 1 tablet by oral route every bedtime 5 MG - Active acetaminophen 500 mg tablet take 2 tablet by oral route every 8 hours as needed 1000 MG - Active Procedures Procedure Date Psychotherapy, 60 minutes with patient T elehealth Psychotherapy, 45 minutes with patient T elephone Only Psychotherapy, 30 minutes with patient T elephone Only Psychotherapy, 45 minutes with patient T elephone Only Est Pt Eval Moderate Psychotherapy, 45 minutes with patient T elephone Only Psychotherapy, 60 minutes with patient T elephone Only Psychotherapy, 45 minutes with patient T elephone Only Psychotherapy, 45 minutes with patient T elephone Only Psychotherapy, 45 minutes with patient T elephone Only Psychotherapy, 45 minutes with patient S Inj Anes Facet Jt; Lumb/sac-2nd Level Se Inj Anes Facet Jt; Lumb/sac-1st Level Se Inj Anes Facet Jt; Lumb/sac-1st Level Se Inj Anes Facet Jt; Lumb/sac-2nd Level Se Change Control for Procedure(s): 2024 Change Control for Modifier(s) Inj Anes Facet Jt; Lumb/sac-1st Level Se Inj Anes Facet Jt; Lumb/sac-2nd Level Se Inj Anes Facet Jt; Lumb/sac-2nd Level Se Verified No Separate Anesthesia Psychotherapy, 30 minutes with patient T elephone Only Psychotherapy, 45 minutes with patient T elephone Only Psychotherapy, 45 minutes with patient T elephone Only Est Pt Eval Moderate Psychotherapy, 45 minutes with patient T elephone Only Psychotherapy, 45 minutes with patient T elephone Only Psychotherapy, 45 minutes with patient T elephone Only Est Pt Eval Telehealth Psychotherapy, 45 minutes with patient T elephone Only Psychotherapy, 45 minutes with patient T elephone Only Est Pt Eval Moderate Psychotherapy, 60 minutes with patient T elephone Only Inj Anes Facet Jt; Lumb/sac-1st Level Ju Inj Anes Facet Jt; Lumb/sac-2nd Level Ju Inj Anes Facet Jt; Lumb/sac-1st Level Ju Inj Anes Facet Jt; Lumb/sac-2nd Level Ju Change Control for Procedure(s): 2024 Change Control for Modifier(s) Inj Anes Facet Jt; Lumb/sac-1st Level Ju Inj Anes Facet Jt; Lumb/sac-2nd Level Ju Inj Anes Facet Jt; Lumb/sac-2nd Level Verified No Separate Anesthesia 025 Psychotherapy, 30 minutes with patient T elephone Only Psychotherapy, 30 minutes with patient T elephone Only Psychotherapy, 45 minutes with patient T elephone Only Psychotherapy, 45 minutes with patient T elephone Only Est Pt Eval Moderate Psychotherapy, 45 minutes with patient T elephone Only Global Postop Visit Psychotherapy, 30 minutes with patient T elephone Only Implant SCS Epi Lead Implant SCS IPG Implant SCS IPG Implant SCS Epi Lead Implant SCS Epi Lead Stimulator Electrodes Each Neurostim Generator, Non-rechargeable,du al Array Implant SCS IPG Implant SCS Epidi Lead Anes- All Integ Neck Incl Subq Anesthesia Under 1 Year Over 70 Yr Psychotherapy, 45 minutes with patient T elephone Only Est Pt Eval Telehealth Psychotherapy, 30 minutes with patient T elephone Only Psychotherapy, 45 minutes with patient T elephone Only Psychotherapy, 45 minutes with patient T elephone Only Inj Anes Facet Jt; Lumb/sac-2nd Level Ma Inj Anes Facet Jt; Lumb/sac-1st Level Ma Inj Anes Facet Jt; Lumb/sac-1st Level Ma Inj Anes Facet Jt; Lumb/sac-2nd Level Ma Change Control for Procedure(s): 2024 Change Control for Modifier(s) Inj Anes Facet Jt; Lumb/sac-1st Level Ma Inj Anes Facet Jt; Lumb/sac-2nd Level Ma Inj Anes Facet Jt; Lumb/sac-2nd Level Ma Verified No Separate Anesthesia Aquatic Therapy Psychotherapy, 45 minutes with patient T elephone Only Psychotherapy, 45 minutes with patient T elephone Only Horizon 637 LSO OTS Fit Horizon Extension Panel Global Postop Visit Psychotherapy, 45 minutes with patient T elephone Only Implant SCS Epi Lead Implant SCS Epi Lead Stimulator Electrodes Each Implant SCS Epidi Lead ANES NEUROMD/NTRVRT CRV/THRC Anesthesia Under 1 Year Over 70 Yr Jun- Aquatic Therapy Psychotherapy, 30 minutes with patient T elephone Only Psychotherapy, 45 minutes with patient T elephone Only Aquatic Therapy Psychotherapy, 45 minutes with patient T elephone Only Psychotherapy, 45 minutes with patient T elephone Only Est Pt Eval Telehealth PT Eval - Moderate Complexity Psychotherapy, 45 minutes with patient T elephone Only Inject, Spine, Cerv/Thor, Epi/subarc w/i mg Guid Inject, Spine, Cerv/Thor, Epi/subarc w/i mg Guid Verified No Separate Anesthesia Psychotherapy, 45 minutes with patient T elephone Only Psychotherapy, 45 minutes with patient T elephone Only Est Pt Eval Telehealth Psychotherapy, 45 minutes with patient T elephone Only Psychotherapy, 45 minutes with patient T elephone Only Psychotherapy, 45 minutes with patient T elephone Only Psychotherapy, 45 minutes with patient T elephone Only Est Pt Eval Moderate Psychotherapy, 45 minutes with patient T elephone Only Est Pt Eval Telehealth Psychotherapy, 45 minutes with patient T elephone Only Est Pt Eval Psychotherapy, 45 minutes with patient T elephone Only Psychotherapy, 45 minutes with patient T elephone Only Psychotherapy, 45 minutes with patient T elephone Only Psychotherapy, 45 minutes with patient T elephone Only Est Pt Eval Telehealth Psychotherapy, 60 minutes with patient T elephone Only Psychotherapy, 45 minutes with patient T elephone Only Psychotherapy, 45 minutes with patient T elephone Only Psychotherapy, 30 minutes with patient T elephone Only PT Eval - Moderate Complexity Est Pt Eval Telehealth Psychotherapy, 60 minutes with patient T elephone Only Psychotherapy, 60 minutes with patient T elephone Only Psychotherapy, 60 minutes with patient T elephone Only Est Pt Eval Telehealth Inject, Spine, Cerv/Thor, Epi/subarc w/i mg Guid Inject, Spine, Cerv/Thor, Epi/subarc w/i mg Guid Verified No Separate Anesthesia Psychotherapy, 45 minutes with patient T elephone Only Est Pt Eval Telehealth Psychotherapy, 60 minutes with patient T elephone Only Psychotherapy, 45 minutes with patient T elephone Only Psychotherapy, 30 minutes with patient T elephone Only Est Pt Eval Telehealth Est Pt Eval Telehealth Triggerpoint 1-2 Muscle Est Pt Eval Telehealth Inject, Spine, Lumb/sacr, Epi/subarc w/ img Guid Inject, Spine, Lumb/sacr, Epi/subarc w/ img Guid Verified No Separate Anesthesia 024 Est Pt Eval Moderate Inject, Spine, Cerv/Thor, Epi/subarc w/i mg Guid Inject, Spine, Cerv/Thor, Epi/subarc w/i mg Guid Verified No Separate Anesthesia Est Pt Eval Moderate PHONE E/M PHYS/QHP 21-30 MIN Psychiatric Diagnostic Evaluation Teleph one Only Est Pt Eval Inject, Spine, Lumb/sacr, Epi/subarc w/ img Guid Inject, Spine, Lumb/sacr, Epi/subarc w/ img Guid Verified No Separate Anesthesia 024 Inject, Spine, Cerv/Thor, Epi/subarc w/i mg Guid Inject, Spine, Cerv/Thor, Epi/subarc w/i mg Guid Verified No Separate Anesthesia Psychotherapy, 30 minutes with patient T elephone Only PHONE E/M PHYS/QHP 21-30 MIN Psychotherapy, 30 minutes with patient T elephone Only Psychotherapy, 30 minutes with patient T elephone Only Inject, Spine, Lumb/sacr, Epi/subarc w/ img Guid Inject, Spine, Lumb/sacr, Epi/subarc w/ img Guid Verified No Separate Anesthesia Psychotherapy, 45 minutes with patient T elephone Only Est Pt Eval Telehealth Psychotherapy, 30 minutes with patient T elephone Only Psychotherapy, 45 minutes with patient T elephone Only Pt Seen-No Charge, Per Physician 2023 Verified No Separate Anesthesia Inject, Spine, Cerv/Thor, Epi/subarc w/i mg Guid Inject, Spine, Cerv/Thor, Epi/subarc w/i mg Guid Psychotherapy, 45 minutes with patient T elephone Only Psychotherapy, 45 minutes with patient T elephone Only Psychotherapy, 45 minutes with patient T elephone Only Psychiatric Diagnostic Evaluation Teleph one Only Est Pt Eval Telehealth PT Eval - Moderate Complexity 3 New Pt Eval Moderate Advance Directives Directive Yes / No Effective Date File Name No Information Encounters Encounter Description Practice Location Reason(s) For Visit Diagnoses Date Provider Providers Copied on Encounter VAM[facility]I Monroy, [address] [facility] [address], [place], [place], [id number], [place] tel:[phone] [facility] No Information 5 RN RN. [address], [place], [address], [place]. tel:[phone] Psychotherap y, 60 minutes with patient Telehealth [facility]AM[facility]I Monroy, [address], [place], [place], [address], [place] tel:[phone] [facility] Major depressive disorder, recurrent, moderatePain disorder with related psychological factorsAge-related cognitive decline 5 Walter Na. [address], [place], [address], [place]. tel:[phone] Referring Provider: Ej Desir, [address], [place], [address] . tel:[phone] Psychotherap y, 45 minutes with patient Telephone Only [facility], [address] [facility] [address] [place], [place], [address], [place] tel:[phone] [facility] Major depressive disorder, recurrent, moderatePain disorder with related psychological factorsAge-related cognitive decline 5 Walter Na. [address], [place], [address], [place]. tel:[phone] Referring Provider: Ej Desir, [address], [place], [address] . tel:[phone] Psychotherap y, 30 minutes with patient Telephone Only [facility], [address], [place], [place], [address], [place] tel:[phone] [facility] Major depressive disorder, recurrent, moderatePain disorder with related psychological factorsAge-related cognitive decline 5 Walter Na. [address], [place], [address], [place]. tel:[phone] Referring Provider: Ej Desir, [address], [place], [address] . tel:[phone] Psychotherap y, 45 minutes with patient Telephone Only [facility], [address], [place], [place], [address], [place] tel:[phone] [facility] Major depressive disorder, recurrent, moderatePain disorder with related psychological factorsAge-related cognitive decline 5 Walter Na. [address], [place], [place], [address], [place]. tel:[phone] Referring Provider: Ej Desir, [address], [place], [address] . tel:[phone] Est Pt Eval Moderate [facility], [address], [place], [place], [address], [place] tel:[phone] María [facility] 7390 lower back pain (chief complaint) neck pain (chief complaint) Postlaminectomy syndrome, not elsewhere classifiedSpondylo sis w/o myelopathy or radiculopathy, lumbar regionBody mass index (BMI) 38.0-38.9, adultMyalgia 5 Andi Reyes. [address], [place], [address], [place]. tel:[phone] Referring Provider: Ej Desir, [address], [place], [address] . tel:[phone] Psychotherap y, 45 minutes with patient Telephone Only [facility], [address], [place], [place], [address], [place] tel:[phone] [facility] Major depressive disorder, recurrent, moderatePain disorder with related psychological factorsAge-related cognitive decline 5 Walter Na. [address], [place], [place], [address], [place]. tel:[phone] Referring Provider: Ej Desir, [address], [place], [address] . tel:[phone] Psychotherap y, 60 minutes with patient Telephone Only [facility], [address], [place], [place], [address], [place] tel:[phone] [facility] Major depressive disorder, recurrent, moderatePain disorder with related psychological factors Dec-2 - 5 Walter Na. [address], [place], [place], [address], [place]. tel:[phone] Referring Provider: Ej Desir, [address], [place], [address] . tel:[phone] Psychotherap y, 45 minutes with patient Telephone Only [facility], [address], [place], [place], [address], [place] tel:[phone] [facility] Major depressive disorder, recurrent, moderatePain disorder with related psychological factorsAge-related cognitive decline Dec- 5 Walter Na. [address], [place], [address], [place]. tel:[phone] Referring Provider: Ej Desir, [address], [place], [address] . tel:[phone] Psychotherap y, 45 minutes with patient Telephone Only [facility], [address], [place], [place], [address], [place] tel:[phone] [facility] Major depressive disorder, recurrent, moderatePain disorder with related psychological factorsAge-related cognitive decline Dec-0 5 Walter Na. [address], [place], [address], [place]. tel:[phone] Referring Provider: Ej Desir, [address], [place], [address] . tel:[phone] Psychotherap y, 45 minutes with patient Telephone Only [facility], [address], [place], [place], [address], [place] tel:[phone] [facility] Major depressive disorder, recurrent, moderatePain disorder with related psychological factorsAge-related cognitive decline Dec-0 5 Walter Na. [address], [place], [place], [address], [place]. tel:[phone] Referring Provider: Ej Desir, [address], [place], [address] . tel:[phone] Psychotherap y, 45 minutes with patient [facility], [address], [place], [place], [address], [place] tel:[phone] [facility] Major depressive disorder, recurrent, moderatePain disorder with related psychological factorsAge-related cognitive decline Sep-2 5 Walter Na. [address], [place], [place], [address], [place]. tel:[phone] Referring Provider: Ej Desir, [address], [place], [address] . tel:[phone] [facility], [address], [place], [address], [place] tel:[phone] [facility] Chief Complaint 1 (chief complaint) Spondylosis w/o myelopathy or radiculopathy, lumbar regionSpondylosis w/o myelopathy or radiculopathy, lumbar region Sep-2 5 [facility]. [address], [place], [place], [address], [place]. tel:[phone] Referring Provider: Trina Singh , [address], [place], [address]. tel:[phone] [facility], [address], [place], [place], [address], [place] tel:[phone] [facility] No Information Sep- 5 Francisco Pickardin. [address], [place], [address], [place]. tel:[phone] Referring Provider: Trina Singh , [address], [place], [address]. tel:[phone] [facility], [address], [place], [place], [address], [place] tel:[phone] [facility] No Information Sep- 5 Carbon Trina. [address], [place], [address], [place]. tel:[phone] Referring Provider: MIRA RAMESH. Psychotherap y, 30 minutes with patient Telephone Only [facility], [address], [place], [place], [address], [place] tel:[phone] [facility] Major depressive disorder, recurrent, moderatePain disorder with related psychological factorsAge-related cognitive decline Sep- 5 Walter Richardson. [address], [place], [address], [place]. tel:[phone] Referring Provider: Ej Desir, [address], [place], [address] . tel:[phone] Psychotherap y, 45 minutes with patient Telephone Only [facility], [address], [place], [place], [address], [place] tel:[phone] [facility] Major depressive disorder, recurrent, moderatePain disorder with related psychological factorsAge-related cognitive decline Sep-1 5 Walter Na. [address], [place], [place], [address], [place]. tel:[phone] Referring Provider: Ej Desir, [address] [facility] [address], [place], [address] . tel:[phone] Psychotherap y, 45 minutes with patient Telephone Only [facility], [address] [facility] [address], [place], [place], [address], [place] tel:[phone] [facility] Major depressive disorder, recurrent, moderateMyalgiaAge -related cognitive decline Sep-1 5 Walter Na. [address], [facility] [address], [place], [address], [place]. tel:[phone] Referring Provider: Ej Desir, [address] [facility] [address], [place], [address] . tel:[phone] Est Pt Eval Moderate [facility], [address], [place], [place], [address], [place] tel:[phone] [facility] lower back pain (chief complaint) neck pain (chief complaint) Postlaminectomy syndrome, not elsewhere classifiedRadiculo daniel, cervical regionSpondylosis w/o myelopathy or radiculopathy, lumbar region Sep-0 5 Keagan North. [address] [facility] [address], [place], [address], [place]. tel:[phone] Referring Provider: Ej Desir, [address] [facility] [address], [place], [address] . tel:[phone] Psychotherap y, 45 minutes with patient Telephone Only [facility], [address], [place], [place], [address], [place] tel:[phone] [facility] Major depressive disorder, recurrent, moderatePain disorder with related psychological factorsAge-related cognitive decline Sep-0 4-202 5 Walter Na. [address], [place], [place], [address], [place]. tel:[phone] Referring Provider: Ej Desir, [address], [place], [address] . tel:[phone] Psychotherap y, 45 minutes with patient Telephone Only [facility], [address] [facility] [address], [place], [place], [address], [place] tel:[phone] [facility] Major depressive disorder, recurrent, moderatePain disorder with related psychological factorsAge-related cognitive decline 5 Walter Na. [address], [place], [place], [address], [place]. tel:[phone] Referring Provider: Ej Desir, [address] [facility] [address], [place], [address] . tel:[phone] Psychotherap y, 45 minutes with patient Telephone Only [facility], [address] [facility] [address], [place], [place], [address], [place] tel:[phone] [facility] Major depressive disorder, recurrent, moderatePain disorder with related psychological factorsAge-related cognitive decline 5 Walter Na. [address], [facility] [address], [place], [address], [place]. tel:[phone] Referring Provider: Ej Desir, [address] [facility] [address], [place], [address] . tel:[phone] Est Pt Eval Telehealth [facility], [address] [facility] [place], [place], [address], [place] tel:[phone] [facility] lower back pain (chief complaint) neck pain (chief complaint) Postlaminectomy syndrome, not elsewhere classifiedSpondylo sis w/o myelopathy or radiculopathy, lumbar regionRadiculopath y, cervical region 5 Richard Kaye. [address], [facility] [address], [place], [address], [place]. tel:[phone] Referring Provider: Ej Desir, [address], [place], [address] . tel:[phone] Psychotherap y, 45 minutes with patient Telephone Only [facility], [address] [facility] [address], [place], [place], [address], [place] tel:[phone] [facility] Major depressive disorder, recurrent, moderatePain disorder with related psychological factorsAge-related cognitive decline 5 Walter Richardson. [address], [facility] [address], [place], [address], [place]. tel:[phone] Referring Provider: Ej Desir, [address] [facility] [address], [place], [address] . tel:[phone] Psychotherap y, 45 minutes with patient Telephone Only [facility], [address] [facility] [address], [place], [place], [address], [place] tel:[phone] [facility] Major depressive disorder, recurrent, moderatePain disorder with related psychological factorsAge-related cognitive decline 5 Walter Richardson. [address] [facility] [address], [place], [address], [place]. tel:[phone] Referring Provider: Ej Desir, [address] [facility] [address], [place], [address] . tel:[phone] Est Pt Eval Moderate [facility], [address], [place], [place], [address], [place] tel:[phone] [facility] lower back pain (chief complaint) neck pain (chief complaint) Postlaminectomy syndrome, not elsewhere classifiedSpondylo sis w/o myelopathy or radiculopathy, lumbar regionRadiculopath y, cervical regionBody mass index (BMI) 36.0-36.9, adultElevated blood-pressure reading, w/o diagnosis of htn 5 Rodriguez Cheryl. [address] [facility], [place], [place], [address], [place]. tel:[phone] Referring Provider: Ej Desir, [address] [facility] [address], [place], [address] . tel:[phone] Psychotherap y, 60 minutes with patient Telephone Only [facility], [address] [facility] [address], [place], [place], [address], [place] tel:[phone] [facility] Major depressive disorder, recurrent, moderatePain disorder with related psychological factorsAge-related cognitive decline 5 Walter Na. [address] [facility], [place], [place], [address], [place]. tel:[phone] Referring Provider: Ej Desir, [address] [facility] [address], [place], [address] . tel:[phone] [facility], [address], [place], [address], [place] tel:[phone] [facility] lower back pain (chief complaint) Spondylosis w/o myelopathy or radiculopathy, lumbar regionSpondylosis w/o myelopathy or radiculopathy, lumbar region 5 [facility]. [address] [facility] [address], [place], [place], [address], [place]. tel:[phone] Referring Provider: Trina Singh , [address], [place], [address]. tel:[phone] EMILI Monroy, [address], [place], [place], [address], [place] tel:[phone] [facility] No Information 5 Francisco Mena. [address], [place], [address], [place]. tel:[phone] Referring Provider: Trina Singh , [address], [place], [address]. tel:[phone] [facility], [address], [place], [place], [address], [place] tel:[phone] [facility] No Information 5 Carbon Trina. [address], [place], [address], [place]. tel:[phone] Referring Provider: MIRA RAMESH. Psychotherap y, 30 minutes with patient Telephone Only [facility], [address], [place], [place], [address], [place] tel:[phone] [facility] Major depressive disorder, recurrent, moderatePain disorder with related psychological factorsAge-related cognitive decline 5 Walter Na. [address], [address], [place], [address], [place]. tel:[phone] Referring Provider: Ej Desir, [address], [place], [address] . tel:[phone] Psychotherap y, 30 minutes with patient Telephone Only [facility], [address], [place], [address], [place] tel:[phone] [facility] Major depressive disorder, recurrent, moderatePain disorder with related psychological factorsAge-related cognitive decline 5 Walter Na. [address], [address], [place], [address], [place]. tel:[phone] Referring Provider: Ej Desir, [address], [place], [address] . tel:[phone] Psychotherap y, 45 minutes with patient Telephone Only VAMSHI Monroy, [address], [place], [place], [address], [place] tel:[phone] [facility] Major depressive disorder, recurrent, moderatePain disorder with related psychological factorsAge-related cognitive decline 5 Walter Na. [address], [address], [place], [address], [place]. tel:[phone] Referring Provider: Ej Desir, [address], [place], [address] . tel:[phone] Psychotherap y, 45 minutes with patient Telephone Only VAMSHI Monroy, [address] [facility] [address], [place], [place], [address], [place] tel:[phone] [facility] Major depressive disorder, recurrent, moderatePain disorder with related psychological factorsAge-related cognitive decline 5 Walter Na. [address], [address], [place], [address], [place]. tel:[phone] Referring Provider: Ej Desir, [address] [facility] [address], [place], [address] . tel:[phone] Est Pt Eval Cheri Monroy, [facility], [address], [place], [place], [address], [place] tel:[phone] [facility] entire spine pain (chief complaint) Postlaminectomy syndrome, not elsewhere classifiedRadiculo daniel, cervical regionSpondylosis w/o myelopathy or radiculopathy, lumbar regionBody mass index (BMI) 36.0-36.9, adult Aug- 5 Michael Mccaina. [address] [place], [address], . tel:[phone] Referring Provider: Ej Desir, [address] [facility] [address], [place], [address] . tel:[phone] Psychotherap y, 45 minutes with patient Telephone Only VASMHI Monroy, [address] [facility] [address], [place], [place], [address], [place] tel:[phone] [facility] Major depressive disorder, recurrent, moderatePain disorder with related psychological factorsAge-related cognitive decline Aug- 5 Walter Na. [address] [facility] [address], [place], [address], [place]. tel:[phone] Referring Provider: Ej Desir, [address] [facility] [address], [place], [address] . tel:[phone] VAMSHI Monroy, [address] [facility] [address], [place], [place], [address], [place] tel:[phone] [facility] entire spine pain (chief complaint) Spondylosis w/o myelopathy or radiculopathy, lumbar regionRadiculopath y, cervical regionPostlaminect reyna syndrome, not elsewhere classifiedBody mass index (BMI) 38.0-38.9, adult Aug- 5 Richard Kaye. [address] , [facility] [address], [place], [address], [place]. tel:[phone] Referring Provider: Ej Desir, [address], [place], [address] . tel:[phone] Psychotherap y, 30 minutes with patient Telephone Only VAMSHI Monroy, [address] [facility] [address], [place], [place], [address], [place] tel:[phone] [facility] Pain disorder with related psychological factorsMajor depressive disorder, recurrent, moderate Enoc- 5 Hadley Alejandra. [address], [place], [place], [address], [place]. tel:[phone] Referring Provider: Ej Desir, [address], [place], [address] . tel:[phone] [facility], [address], [place], [address], [place] tel:[phone] [facility] neck pain (chief complaint) Postlaminectomy syndrome, not elsewhere classifiedCervical giaRadiculopathy, cervical regionPostlaminect reyna syndrome, not elsewhere classifiedRadiculo daniel, cervical regionCervicalgia 5 [facility]. [address], [place], [place], [address], [place]. tel:[phone] Referring Provider: Trina Singh , [address], [place], [address]. tel:[phone] [facility], [facility], [address], [place], [place], [address], [place] tel:[phone] [facility] No Information 5 Francisco Mena. [address], [place], [address], [place]. tel:[phone] Referring Provider: Ej Desir, [address], [place], [address] . tel:[phone] [facility], [facility], [address], [place], [place], [address], [place] tel:[phone] [facility] No Information 5 Marshall Macias. [address] [place], [address], [place]. tel:[phone] Referring Provider: Trina Singh , [address] [facility] [address], [place], [address]. tel:[phone] Psychotherap y, 45 minutes with patient Telephone Only EMILI Monroy, [address], [place], [place], [address], [place] tel:[phone] [facility] Major depressive disorder, recurrent, moderatePain disorder with related psychological factorsAge-related cognitive decline 5 Walter Na. [address], [place], [place], [address], [place]. tel:[phone] Referring Provider: Ej Desir, [address] [facility] [address], [place], [address] . tel:[phone] Est Pt Eval Telehealth [facility], [address] [facility] [address], [place], [place], [address], [place] tel:[phone] [facility] mid back pain (chief complaint) neck pain (chief complaint) Radiculopathy, cervical regionPostlaminect reyna syndrome, not elsewhere classifiedSpondylo sis w/o myelopathy or radiculopathy, lumbar region 5 Michael Henryrra. [address] [place], [address], [place]. tel:[phone] Referring Provider: Ej Desir, [address] [facility] [address], [place], [address] . tel:[phone] [facility], [address] [facility] [address], [place], [place], [address], [place] tel:[phone] [facility] Unsteadiness on feetUnspecified dementia, unspecified severity, with agitationRepeated fallsSpinal stenosis, lumbar region with neurogenic claudication 5 RN RN. [address] [facility], [place], [place], [address], [place]. tel:[phone] Psychotherap y, 30 minutes with patient Telephone Only [facility], [facility], [address], [place], [place], [address], [place] tel:[phone] [facility] Pain disorder with related psychological factorsMajor depressive disorder, recurrent, moderateDementia 5 Hadley Alejandra. [address], [address], [place], [address], [place]. tel:[phone] Referring Provider: Ej Desir, [address], [place], [address] . tel:[phone] Psychotherap y, 45 minutes with patient Telephone Only [facility], [facility], [address], [place], [place], [address], [place] tel:[phone] [facility] Major depressive disorder, recurrent, moderatePain disorder with related psychological factorsAge-related cognitive decline 5 Walter Na. [address], [address], [place], [address], [place]. tel:[phone] Referring Provider: Ej Desir, [address], [place], [address] . tel:[phone] Psychotherap y, 45 minutes with patient Telephone Only [facility], [facility], [address], [place], [place], [address], [place] tel:[phone] [facility] Major depressive disorder, recurrent, moderatePain disorder with related psychological factorsAge-related cognitive decline 5 Walter Na. [address], [address], [place], [address], [place]. tel:[phone] Referring Provider: Ej Desir, [address], [place], [address] . tel:[phone] [facility], [address], [place], [address], [place] tel:[phone] [facility] lower back pain (chief complaint) Spondylosis w/o myelopathy or radiculopathy, lumbar regionSpondylosis w/o myelopathy or radiculopathy, lumbar region 5 [facility]. [address], [place], [place], [address], [place]. tel:[phone] Referring Provider: Trina Singh , [address], [place], [address]. tel:[phone] EMILI Monroy, [address], [place], [place], [address], [place] tel:[phone] [facility] No Information 5 Francisco Trina. [address], [place], [address], [place]. tel:[phone] Referring Provider: Trina Singh , [address], [place], [address]. tel:[phone] EMILI Monroy, [address], [place], [place], [address], [place] tel:[phone] [facility] No Information 5 Carbon Trina. [address], [place], [address], [place]. [phone] Referring Provider: REFERRAL SELF, MIRA. EMILI Monroy, [address], [place], [place], [address], [place] tel:[phone] [facility] Postlaminectomy syndrome, not elsewhere classifiedPostlami nectomy syndrome, not elsewhere classifiedRadiculo daniel, cervical regionLow back pain, unspecifiedUnstead iness on feet Apr-3 0 5 Venancio Carreon. [address], [place], [place], [address], [place]. tel:[phone] Referring Provider: Ej Desir, [address], [place], [address] . tel:[phone] Psychotherap y, 45 minutes with patient Telephone Only EMILI Monroy, [address], [place], [place], [address], [place] tel:[phone] [facility] Major depressive disorder, recurrent, moderatePain disorder with related psychological factorsAge-related cognitive decline Apr-2 5 Walter Richardson. [address], [address], [place], [address], [place]. tel:[phone] Referring Provider: Ej Desir, [address], [place], [address] . tel:[phone] Psychotherap y, 45 minutes with patient Telephone Only V[facility]SHI Monroy, [address], [place], [place], [address], [place] tel:[phone] María [facility] Major depressive disorder, recurrent, moderatePain disorder with related psychological factorsAge-related cognitive decline Apr-2 5 Walter Richardson. [address], [address], [place], [address], [place]. tel:[phone] Referring Provider: Ej Desir, [address], [place], [address] . tel:[phone] EMILI Monroy, [address], [place], [place], [address], [place] tel:[phone] [facility] Postlaminectomy syndrome, not elsewhere classifiedRadiculo daniel, cervical region Apr-2 5 Willis Farias. [address], [place], [address], [place]. tel:[phone] Referring Provider: Ej Desir, [address], [place], [address] . tel:[phone] [facility], [address], [place], [place], [address], [place] tel:[phone] [facility] neck pain (chief complaint) Postlaminectomy syndrome, not elsewhere classified Apr- 5 Francisco Mena. [address], [place], [address], [place]. tel:[phone] Referring Provider: Ej Desir, [address], [place], [address] . tel:[phone] Psychotherap y, 45 minutes with patient Telephone Only [facility], [address], [place], [place], [address], [place] tel:[phone] [facility] Major depressive disorder, recurrent, moderatePain disorder with related psychological factorsAge-related cognitive decline Jun- 5 Walter Richardson. [address], [facility] [address], [place], [place], [address], [place]. tel:[phone] Referring Provider: Ej Desir, [address] [facility] [address], [place], [address] . tel:[phone] [facility], [address], [place], [address], [place] tel:[phone] [facility] Bilateral whole back pain (chief complaint) Postlaminectomy syndrome, not elsewhere classifiedRadiculo daniel, cervical regionCervicalgiaP ostlaminectomy syndrome, not elsewhere classifiedRadiculo daniel, cervical regionCervicalgia Jun- 5 [facility]. [address], [place], [place], [address], [place]. tel:[phone] Referring Provider: Trina Singh , [address], [place], [address]. tel:[phone] [facility], [address], [place], [place], [address], [place] tel:[phone] [facility] No Information 5 Francisco Mena. [address], [place], [address], [place]. tel:[phone] Referring Provider: Ej Desir, [address], [place], [address] . tel:[phone] [facility], [address], [place], [place], [address], [place] tel:[phone] [facility] No Information 5 Marshall Macias. [address] [place], [place], [address], [place]. tel:[phone] Referring Provider: Trina Singh , [address], [place], [address]. tel:[phone] [facility], [address], [place], [address], [place] tel:[phone] [facility] Postlaminectomy syndrome, not elsewhere classifiedPostlami nectomy syndrome, not elsewhere classifiedRadiculo daniel, cervical regionLow back pain, unspecifiedUnstead iness on feet 5 Venancio Carreon. [address], [place], [place], [address], [place]. tel:[phone] Referring Provider: Ej Desir, [address], [place], [address] . tel:[phone] Psychotherap y, 30 minutes with patient Telephone Only [facility], [address], [place], [place], [address], [place] tel:[phone] María [facility] Major depressive disorder, recurrent, moderatePain disorder with related psychological factorsAge-related cognitive decline Jun- 5 Walter Na. [address], [place], [place], [address], [place]. tel:[phone] Referring Provider: Ej Desir, [address], [place], [address] . tel:[phone] Psychotherap y, 45 minutes with patient Telephone Only [facility] Mon[facility], [address], [place], [place], [address], [place] tel:[phone] [facility] Major depressive disorder, recurrent, moderatePain disorder with related psychological factorsAge-related cognitive decline Jun- 5 Walter Na. [address], [address], [place], [address], [place]. tel:[phone] Referring Provider: Ej Desir, [address], [place], [address] . tel:[phone] VAMSHI Monroy, [address], [place], [place], [address], [place] tel:[phone] [facility] Postlaminectomy syndrome, not elsewhere classifiedPostlami nectomy syndrome, not elsewhere classifiedRadiculo daniel, cervical regionLow back pain, unspecifiedUnstead iness on feet Apr-0 5 Aristeo Whelan. [address], [address], [place], [address], [place]. tel:[phone] Referring Provider: Ej Desir, [address], [place], [address] . tel:[phone] Psychotherap y, 45 minutes with patient Telephone Only EMILI Monroy, [address], [place], [address], [place] tel:[phone] [facility] Major depressive disorder, recurrent, moderatePain disorder with related psychological factorsAge-related cognitive decline Apr-0 5 Walter Na. [address], [address], [place], [address], [place]. tel:[phone] Referring Provider: Ej Desir, [address], [place], [address] . tel:[phone] Psychotherap y, 45 minutes with patient Telephone Only EMILI Monroy, [address] [facility], [place], [place], [address], [place] tel:[phone] [facility] Major depressive disorder, recurrent, moderatePain disorder with related psychological factorsAge-related cognitive decline May- 5 Walter Na. [address], [address], [place], [address], [place]. tel:[phone] Referring Provider: Ej Desir, [address], [place], [address] . tel:[phone] Est Pt Eval Telehealth [facility], [address], [place], [address], [place] tel:[phone] [facility] neck pain (chief complaint) Radiculopathy, cervical regionSpondylosis w/o myelopathy or radiculopathy, lumbar regionDementiaRadi culopathy, lumbar regionPostlaminect reyna syndrome, not elsewhere classified May- 5 Richard Kaye. [address], [facility] [address], [place], [address], [place]. tel:[phone] Referring Provider: Ej Desir, [address], [place], [address] . tel:[phone] EMILI Monroy, [address], [place], [address], [place] tel:[phone] [facility] Postlaminectomy syndrome, not elsewhere classifiedRadiculo daniel, cervical regionLow back pain, unspecifiedUnstead iness on feet 5 Aristeo Whelan. [address], [address], [place], [address], [place]. tel:[phone] Referring Provider: Ej Desir, [address], [place], [address] . tel:[phone] Psychotherap y, 45 minutes with patient Telephone Only EM[facility]I Mon[facility], [address], [place], [address], [place] tel:[phone] [facility] Major depressive disorder, recurrent, moderatePain disorder with related psychological factorsAge-related cognitive decline 5 Walter Richardson. [address], [place], [address], [place]. tel:[phone] Referring Provider: Ej Desir, [address], [place], [address] . tel:[phone] [facility], [address], [place], [address], [place] tel:[phone] [facility] No Information 5 Francisco eMna. [address], [place], [address], [place]. tel:[phone] Referring Provider: Trina Singh , [address], [place], [address]. tel:[phone] [facility] [place], [address], [place], [address], [place] tel:[phone] [facility] neck pain (chief complaint) Radiculopathy, cervical regionRadiculopath y, cervical region 5 [facility]. [address], [place], [place], [address], [place]. tel:[phone] Referring Provider: Trina Singh , [address], [place], [address]. tel:[phone] [facility], [address], [place], [place], [address], [place] tel:[phone] [facility] No Information 5 Francisco Mena. [address], [place], [address], [place]. tel:[phone] Referring Provider: MIRA RAMESH. Psychotherap y, 45 minutes with patient Telephone Only [facility], [address], [place], [place], [address], [place] tel:[phone] [facility] Major depressive disorder, recurrent, moderatePain disorder with related psychological factorsAge-related cognitive decline 5 Walter Richardson. [address], [place], [address], [place]. tel:[phone] Referring Provider: Ej Desir, [address], [place], [address] . tel:[phone] Psychotherap y, 45 minutes with patient Telephone Only V[facility]I [facility], [address], [place], [address], [place] tel:[phone] [facility] Major depressive disorder, recurrent, moderatePain disorder with related psychological factorsAge-related cognitive decline 5 Walter Richardson. [address], [place], [place], [address], [place]. tel:[phone] Referring Provider: Ej Desir, [address], [place], [address] . tel:[phone] Est Pt Eval Telehealth EMILI Monroy, [address], [place], [address], [place] tel:[phone] [facility] neck pain (chief complaint) Radiculopathy, cervical regionRadiculopath y, lumbar regionPostlaminect reyna syndrome, not elsewhere classifiedSpondylo sis w/o myelopathy or radiculopathy, lumbar regionPain in right hipDementia 5 Richard Kaye. [address] , [facility] [address], [place], [address], [place]. tel:[phone] Referring Provider: Ej Desir, [address] [facility], [place], [address] . tel:[phone] Psychotherap y, 45 minutes with patient Telephone Only [facility]I Mon[facility], [address] [facility], [place], [address], [place] tel:[phone] [facility] Major depressive disorder, recurrent, moderatePain disorder with related psychological factorsAge-related cognitive decline Walter Richardson. [address], [address], [place], [place], [address], [place]. tel:[phone] Referring Provider: Ej Desir, [address] [facility] [address], [place], [address] . tel:[phone] Psychotherap y, 45 minutes with patient Telephone Only V[facility]SHI Mon[facility], [address], [place], [address], [place] tel:[phone] [facility] Major depressive disorder, recurrent, moderatePain disorder with related psychological factorsAge-related cognitive decline 5 Walter Na. [address], [address], [place], [place], [address], [place]. tel:[phone] Referring Provider: Ej Desir, [address], [place], [address] . tel:[phone] Psychotherap y, 45 minutes with patient Telephone Only [facility], [address], [place], [address], [place] tel:[phone] [facility] Major depressive disorder, recurrent, moderatePain disorder with related psychological factorsAge-related cognitive decline 5 Walter Na. [address], [place], [place], [address], [place]. tel:[phone] Referring Provider: Ej Desir, [address], [place], [address] . tel:[phone] Est Pt Eval Moderate VAMSHI Monroy, [address], [place], [place], [address], [place] tel:[phone] [facility] neck pain (chief complaint) DementiaPain in right hipSpondylosis w/o myelopathy or radiculopathy, lumbar regionRadiculopath y, cervical regionRadiculopath y, lumbar regionPostlaminect reyna syndrome, not elsewhere classifiedEssentia l (primary) hypertension 5 Richard Kaye. [address], [address], [place], [address], [place]. tel:[phone] Referring Provider: Ej Desir, [address], [place], [address] . tel:[phone] Psychotherap y, 45 minutes with patient Telephone Only VAMSHI Monroy, [address], [place], [place], [address], [place] tel:[phone] [facility] Major depressive disorder, recurrent, moderatePain disorder with related psychological factorsAge-related cognitive decline 5 Walter Na. [address], [address], [place], [place], [address], [place]. tel:[phone] Referring Provider: Ej Desir, [address], [place], [address] . tel:[phone] Est Pt Eval Telehealth EMILI Monroy, [address], [place], [place], [address], [place] tel:[phone] [facility] neck pain (chief complaint) Spondylosis w/o myelopathy or radiculopathy, lumbar regionPain in right hipDementiaRadicul opathy, cervical regionRadiculopath y, lumbar regionPostlaminect reyna syndrome, not elsewhere classified 5 Zenia Barlow. [address], [address], [place], [address], [place]. tel:[phone] Referring Provider: Ej Desir, [address], [place], [address] . tel:[phone] Psychotherap y, 45 minutes with patient Telephone Only VAMSHI Monroy, [address], [place], [place], [address], [place] tel:[phone] [facility] Major depressive disorder, recurrent, moderatePain disorder with related psychological factorsAge-related cognitive decline 5 Walter Na. [address], [address], [place], [place], [address], [place]. tel:[phone] Referring Provider: Ej Desir, [address], [place], [address] . tel:[phone] Est Pt Eval EMILI Monroy, [address], [place], [place], [address], [place] tel:[phone] [facility] neck pain (chief complaint) lower back pain (chief complaint) Body mass index (BMI) 34.0-34.9, adultRadiculopathy , lumbar regionRadiculopath y, cervical regionSpondylosis w/o myelopathy or radiculopathy, lumbar regionPain in right hipDementiaPostlam inectomy syndrome, not elsewhere classified 5 Richard Kaye. [address], [address], [place], [address], [place]. tel:[phone] Referring Provider: Ej Desir, [address], [place], [address] . tel:[phone] Psychotherap y, 45 minutes with patient Telephone Only VAMSHI Monroy, [address], [place], [place], [address], [place] tel:[phone] [facility] Major depressive disorder, recurrent, moderatePain disorder with related psychological factors 5 Walter Richardson. [address], [address], [place], [address], [place]. tel:[phone] Referring Provider: Ej Desir, [address], [place], [address] . tel:[phone] Psychotherap y, 45 minutes with patient Telephone Only VAMSHI Monroy, [address], [place], [place], [address], [place] tel:[phone] [facility] Major depressive disorder, recurrent, moderatePain disorder with related psychological factorsAge-related cognitive decline 5 Walter Richardson. [address], [address], [place], [address], [place]. tel:[phone] Referring Provider: Ej Desir, [address], [place], [address] . tel:[phone] Psychotherap y, 45 minutes with patient Telephone Only VAMSHI Monroy, [address] [facility], [place], [place], [address], tel:[phone] [facility] Major depressive disorder, recurrent, moderatePain disorder with related psychological factorsAge-related cognitive decline 5 Walter Na. [address], [address], [place], [place], [address], [place]. tel:[phone] Referring Provider: Ej Desir, [address] [facility] [address], [place], [address] . tel:[phone] Psychotherap y, 45 minutes with patient Telephone Only VAMSHI Monroy, [address] [facility] [address], [place], [address], tel:[phone] [facility] Major depressive disorder, recurrent, moderatePain disorder with related psychological factorsAge-related cognitive decline 4 Walter Na. [address], [address], [place], [address], [place]. tel:[phone] Referring Provider: Ej Desir, [address], [place], [address] . tel:[phone] Est Pt Eval Telehealth EMILI Monroy, [address], [place], [place], [address], tel:[phone] [facility] hip pain (chief complaint) Radiculopathy, lumbar regionRadiculopath y, cervical regionSpondylosis w/o myelopathy or radiculopathy, lumbar regionPain in right hipDementiaPostlam inectomy syndrome, not elsewhere classified 4 Richard Kaye. [address], [address], [place], [address], [place]. tel:[phone] Referring Provider: Ej Desir, [address], [place], [address] . tel:[phone] Psychotherap y, 60 minutes with patient Telephone Only EMILI MonroyC, [address], [place], [place], [address], [place] tel:[phone] [facility] Major depressive disorder, recurrent, moderatePain disorder with related psychological factorsAge-related cognitive decline 4 Walter Na. [address], [address], [place], [place], [address], [place]. tel:[phone] Referring Provider: Ej Desir, [address], [place], [address] . tel:[phone] Psychotherap y, 45 minutes with patient Telephone Only EMILI MonroyC, [address], [place], [place], [address], [place] tel:[phone] [facility] Major depressive disorder, recurrent, moderatePain disorder with related psychological factorsAge-related cognitive decline 4 Walter Na. [address], [address], [place], [place], [address], [place]. tel:[phone] Referring Provider: Ej Desir, [address], [place], [address] . tel:[phone] Psychotherap y, 45 minutes with patient Telephone Only [facility], [address], [place], [place], [address], [place] tel:[phone] [facility] Major depressive disorder, recurrent, moderatePain disorder with related psychological factors 4 Walter Na. [address], [address], [place], [place], [address], [place]. tel:[phone] Referring Provider: Ej Desir, [address], [place], [address] . tel:[phone] Psychotherap y, 30 minutes with patient Telephone Only VAMSHI Monroy, [address], [place], [place], [address], [place] tel:[phone] [facility] Major depressive disorder, recurrent, moderatePain disorder with related psychological factors 4 Walter Richardson. [address], [address], [place], [place], [address], [place]. tel:[phone] Referring Provider: Ej Desir, [address], [place], [address] . tel:[phone] VAMSHI Monroy, [address], [place], [place], [address], [place] tel:[phone] [facility] Postlaminectomy syndrome, not elsewhere classifiedRadiculo daniel, cervical regionLow back pain, unspecified 4 Willis Farias. [address], [address], [place]. tel:[phone] Referring Provider: Ej Desir, [address], [place], [address] . tel:[phone] Est Pt Eval Telehealth VAMSHI Monroy, [address], [place], [place], [address], [place] tel:[phone] María [facility] 7317 lower back pain (chief complaint) hip pain (chief complaint) DementiaSpondylosi s w/o myelopathy or radiculopathy, lumbar regionRadiculopath y, cervical regionRadiculopath y, lumbar regionCervicalgiaM yalgiaPostlaminect reyna syndrome, not elsewhere classifiedPain in right hipBody mass index (BMI) 34.0-34.9, adult 4 Richard Kaye. [address], [address], [place], [address], [place]. tel:[phone] Referring Provider: Ej Desir, [address], [place], [address] . tel:[phone] Psychotherap y, 60 minutes with patient Telephone Only VAMSHI Monroy, [address], [place], [place], [address], [place] tel:[phone] María [facility] Major depressive disorder, recurrent, moderatePain disorder with related psychological factors 4 Walter Na. [address], [address], [place], [address], [place]. tel:[phone] Referring Provider: Ej Desir, [address] [facility] [address], [address] . tel:[phone] VAMSHI Monroy, [address], [place], [address], [place] tel:[phone] SR[facility] Pain in right hip 4 RN RN. [address], [place], [address], [place]. [phone] Psychotherap y, 60 minutes with patient Telephone Only VAMSHI Monroy, [address] [facility] [address], [place], [address], [place] tel:[phone] [facility] Major depressive disorder, recurrent, moderatePain disorder with related psychological factors 4 Walter Na. [address], [place], [address], [place]. tel:[phone] Referring Provider: Ej Desir, [address], [place], [address] . tel:[phone] Est Pt Eval Telehealth VAMSHI Monroy, [address], [place], [place], [address], [place] tel:[phone] [facility] lower back pain (chief complaint) DementiaSpondylosi s w/o myelopathy or radiculopathy, lumbar regionRadiculopath y, cervical regionRadiculopath y, lumbar regionCervicalgiaM yalgiaPostlaminect reyna syndrome, not elsewhere classifiedBody mass index (BMI) 34.0-34.9, adult Nov- 4 Richard Kaye. [address], [address], [place], [address], [place]. tel:[phone] Referring Provider: Ej Desir, [address], [place], [address] . tel:[phone] EMILI Monroy, [address], [place], [place], [address], [place] tel:[phone] [facility] No Information 4 Alexei Gomez. [address], [place], [address], [place]. tel:[phone] Referring Provider: Jason Wall, [address], [place], [address]. tel:[phone] [facility], [address], [place], [address], [place] tel:[phone] [facility] neck pain (chief complaint) Radiculopathy, cervical regionPostlaminect reyna syndrome, not elsewhere classifiedSpondylo sis w/o myelopathy or radiculopathy, lumbar regionRadiculopath y, cervical region 4 [facility]. [address], [place], [place], [address], [place]. tel:[phone] Referring Provider: Jason Wall, [address], [place], [address]. tel:[phone] [facility], [address] [facility] [address], [place], [address], [place] tel:[phone] [facility] [place] No Information 4 Alexei Gomez. [address] [facility] [address], [place], [address], [place]. tel:[phone] Referring Provider: MIRA RAMESH. Psychotherap y, 45 minutes with patient Telephone Only [facility], [address] [facility] [address], [place], [address], [place] tel:[phone] [facility] Major depressive disorder, recurrent, moderatePain disorder with related psychological factors 4 Walter Richardson. [address] [facility], [facility] [address], [place], [address], [place]. tel:[phone] Referring Provider: Ej Desir, [address] [facility] [address], [place], [address] . tel:[phone] Est Pt Eval Telehealth [facility], [address] [facility] [address], [place], [address], [place] tel:[phone] [facility] neck pain (chief complaint) lower back pain (chief complaint) Spondylosis w/o myelopathy or radiculopathy, lumbar regionRadiculopath y, cervical regionRadiculopath y, lumbar regionCervicalgiaM yalgiaPostlaminect reyna syndrome, not elsewhere classifiedBody mass index (BMI) 39.0-39.9, adultDementia 4 Richard Kaye. [address] [facility], [facility] [address], [place], [address], [place]. tel:[phone] Referring Provider: Ej Desir, [address] [facility] [address], [place], [address] . tel:[phone] Psychotherap y, 60 minutes with patient Telephone Only [facility], [address] [facility] [address], [place], [place], [address], [place] tel:[phone] [facility] Major depressive disorder, recurrent, moderatePain disorder with related psychological factors 4 Walter Na. [address], [place], [address], [place]. tel:[phone] Referring Provider: Ej Desir, [address] [facility] [address], [place], [address] . tel:[phone] Psychotherap y, 45 minutes with patient Telephone Only EMILI Monroy, [address], [place], [place], [address], [place] tel:[phone] [facility] Major depressive disorder, recurrent, moderatePain disorder with related psychological factors 4 Walter Na. [address], [facility] [address], [place], [address], [place]. tel:[phone] Referring Provider: Ej eDsir, [address] [facility] [address], [place], [address] . tel:[phone] Psychotherap y, 30 minutes with patient Telephone Only VAMSHI Monroy, [address], [place], [place], [address], [place] tel:[phone] [facility] Major depressive disorder, recurrent, moderatePain disorder with related psychological factors 4 Walter Na. [address], [place], [address], [place]. tel:[phone] Referring Provider: Ej Desir, [address] [facility] [address], [place], [address] . tel:[phone] Est Pt Eval Telehealth VAMSHI Monroy, [address], [place], [place], [address], [place] tel:[phone] [facility] neck pain (chief complaint) Spondylosis w/o myelopathy or radiculopathy, lumbar regionRadiculopath y, cervical regionRadiculopath y, lumbar regionCervicalgiaM yalgiaPostlaminect reyna syndrome, not elsewhere classifiedBody mass index (BMI) 39.0-39.9, adult Nov- 4 Richard Kaye. [address], [address], [place], [address], [place]. tel:[phone] Referring Provider: Ej Desir, [address], [place], [address] . tel:[phone] [facility], [address], [place], [address], [place] tel:[phone] [facility] neck pain (chief complaint) Spondylosis w/o myelopathy or radiculopathy, lumbar regionRadiculopath y, cervical regionRadiculopath y, lumbar regionCervicalgiaM yalgiaPostlaminect reyna syndrome, not elsewhere classifiedBody mass index (BMI) 39.0-39.9, adult Oct- 4 Richard Kaye. [address], [address], [place], [address], [place]. tel:[phone] Referring Provider: Ej Desir, [address], [place], [address] . tel:[phone] EMILI Monroy, [address], [place], [address], [place] tel:[phone] [facility] neck pain (chief complaint) MyalgiaMyalgia, unspecified site 4 Soto Desai. [address], [place], [place], [address], [place]. tel:[phone] Referring Provider: Ej Desir, [address], [place], [address] . tel:[phone] Est Pt Eval Telehealth [facility], [address], [place], [place], [address], [place] tel:[phone] [facility] neck pain (chief complaint) Spondylosis w/o myelopathy or radiculopathy, lumbar regionSpinal stenosis, lumbar region with neurogenic claudicationRadicu lopathy, cervical regionRadiculopath y, lumbar regionCervicalgiaP ostlaminectomy syndrome, not elsewhere classifiedBody mass index (BMI) 39.0-39.9, adultMyalgia 4 Richard Kaye. [address], [address], [place], [address], [place]. tel:[phone] Referring Provider: Ej Desir, [address], [place], [address] . tel:[phone] [facility], [address], [place], [place], [address], [place] tel:[phone] [facility] No Information 4 Francisco Mena. [address], [place], [address], [place]. tel:[phone] Referring Provider: Trina Singh , [address], [place], [address]. tel:[phone] [facility], [address], [place], [address], [place] tel:[phone] [facility] lower back pain (chief complaint) Radiculopathy, lumbar regionRadiculopath y, lumbar region 4 [facility]. [address], [place], [place], [address], [place]. tel:[phone] Referring Provider: Trina Singh , [address], [place], [address]. tel:[phone] [facility], [facility], [address] [facility] [address], [place], [place], [address], [place] tel:[phone] [facility] No Information 4 Francisco Mena. [address] [facility] [address], [place], [address], [place]. tel:[phone] Referring Provider: Trina Singh , [address] [facility] [address], [place], [address]. tel:[phone] Est Pt Eval Moderate [facility], [facility], [address] [facility] [address], [place], [place], [address], [place] tel:[phone] [facility] lower back pain (chief complaint) shoulder pain (chief complaint) neck pain (chief complaint) Spondylosis w/o myelopathy or radiculopathy, lumbar regionRadiculopath y, cervical regionRadiculopath y, lumbar regionCervicalgiaP ostlaminectomy syndrome, not elsewhere classifiedBody mass index (BMI) 39.0-39.9, adultSpinal stenosis, lumbar region with neurogenic claudication 4 Richard Kaye. [address] [facility] [address], [place], [address], [place]. tel:[phone] Referring Provider: Ej Desir, [address] [facility] [address], [place], [address] . tel:[phone] [facility], [address] [facility] [address], [place], [address], [place] tel:[phone] [facility] neck pain (chief complaint) Postlaminectomy syndromeRadiculopa thy, cervical regionRepeated fallsAge-related cognitive decline 4 [facility]. [address] [facility] [address], [place], [place], [address], [place]. tel:[phone] Referring Provider: Trina Singh , [address], [place], [address]. tel:[phone] [facility], [address], [place], [place], [address], [place] tel:[phone] [facility] No Information 4 Carbon Trina. [address], [place], [address], [place]. tel:[phone] Referring Provider: Trina Singh , [address], [place], [address]. tel:[phone] [facility], [address], [place], [place], [address], [place] tel:[phone] [facility] No Information 4 Carbon Trina. [address], [place], [address], [place]. tel:[phone] Referring Provider: Trina Singh , [address], [place], [address]. tel:[phone] Est Pt Eval Moderate [facility], [facility], [address], [place], [place], [address], [place] tel:[phone] [facility] neck pain (chief complaint) lower back pain (chief complaint) hand pain (chief complaint) Postlaminectomy syndrome, not elsewhere classifiedCervical giaRadiculopathy, lumbar regionRadiculopath y, cervical regionSpondylosis w/o myelopathy or radiculopathy, lumbar regionBody mass index (BMI) 39.0-39.9, adultElevated blood-pressure reading, w/o diagnosis of htn 4 Ketola Herlinda. [address], [address], [place], [place], [address], [place]. tel:[phone] Referring Provider: Ej Desir, [address], [place], [address] . tel:[phone] EMILI [facility], [address], [place], [place], [address], [place] tel:[phone] [facility] Cervicalgia Jun- 4 Thang Logan. [address], [place], [place], [address], [place]. tel:[phone] PHONE E/M PHYS/QHP 21-30 MIN EMILI Monroy, [address], [place], [place], [address], [place] tel:[phone] [facility] back pain (chief complaint) Essential (primary) hypertensionSpinal stenosis, lumbar region with neurogenic claudicationRadicu lopathy, cervical regionCervicalgiaP ostlaminectomy syndrome, not elsewhere classifiedBody mass index (BMI) 39.0-39.9, adultRadiculopathy , lumbar regionPain disorder with related psychological factorsSpondylosis w/o myelopathy or radiculopathy, lumbar region Jun- 4 Richard Kaye. [address] , [facility] [address], [place], [address], [place]. tel:[phone] Referring Provider: Ej Desir, [address], [place], [address] . tel:[phone] Psychiatric Diagnostic Evaluation Telephone Only V[facility]I Monroy, [address] [facility], [place], [place], [address], [place] tel:[phone] [facility] Pain disorder with related psychological factorsMajor depressive disorder, recurrent, moderateUnspecifie d dementia without behavioral disturbance Jun- 4 Hadley Alejandra. [address], [place], [place], [address], [place]. tel:[phone] Referring Provider: Ej Desir, [address], [place], [address] . tel:[phone] Est Pt Eval [facility], [facility], [address], [place], [place], [address], [place] tel:[phone] [facility] back pain (chief complaint) Radiculopathy, cervical regionLow back painPostlaminectom y syndrome, not elsewhere classifiedBody mass index (BMI) 39.0-39.9, adultEssential (primary) hypertensionCervic algiaSpinal stenosis, lumbar region with neurogenic claudication 4 Richard Kaye. [address], [address], [place], [address], [place]. tel:[phone] Referring Provider: Ej Desir, [address], [place], [address] . tel:[phone] [facility], [address], [place], [place], [address], [place] tel:[phone] [facility] No Information 4 Alexei Gomez. [address] [facility] [address], [place], [address], [place]. tel:[phone] Referring Provider: Jason Wall, [address], [place], [address]. tel:[phone] [facility] [place], [address], [place], [address], [place] tel:[phone] [facility] back pain (chief complaint) Postlaminectomy syndrome, not elsewhere classifiedRadiculo daniel, lumbar regionSpondylosis w/o myelopathy or radiculopathy, cervical regionRadiculopath y, lumbar region 4 [facility]. [address], [place], [place], [address], [place]. tel:[phone] Referring Provider: Jason Wall, [address], [place], [address]. tel:[phone] [facility], [address], [place], [place], [address], [place] tel:[phone] [facility] No Information 4 Alexei Gomez. [address], [place], [address], [place]. tel:[phone] Referring Provider: Jason Wall, [address], [place], [address]. tel:[phone] [facility], [address], [place], [address], [place] tel:[phone] [facility] Radiculopathy, cervical regionRadiculopath y, cervical region 4 [facility]. [address], [place], [place], [address], [place]. tel:[phone] Referring Provider: Trina Singh , [address], [place], [address]. tel:[phone] [facility], [address], [place], [place], [address], [place] tel:[phone] [facility] No Information 4 Francisco Mena. [address], [place], [address], [place]. tel:[phone] Referring Provider: Trina Singh , [address], [place], [address]. tel:[phone] VAMSHI Monroy, [address], [place], [place], [address], [place] tel:[phone] [facility] María No Information 4 Francisco Mena. [address], [place], [address], [place]. tel:[phone] Referring Provider: MIRA RAMESH. Psychotherap y, 30 minutes with patient Telephone Only VAMSHI Monroy, [address], [place], [place], [address], [place] tel:[phone] [facility] Pain disorder with related psychological factorsUnspecified dementia without behavioral disturbanceMajor depressive disorder, recurrent, moderate 4 Ritu Downs. [address], [address], [place], [place], [address], [place]. tel:[phone] Referring Provider: Ej Desir, [address], [place], [address] . tel:[phone] PHONE E/M PHYS/QHP 21-30 MIN VAMSHI Monroy, [address], [place], [place], [address], [place] tel:[phone] [facility] back pain (chief complaint) Neck pain (chief complaint) Low back painPostlaminectom y syndrome, not elsewhere classifiedRadiculo daniel, cervical region 4 She Qiying. [address], [address], [place], [address], [place]. tel:[phone] Referring Provider: Ej Desir, [address], [place], [address] . tel:[phone] Psychotherap y, 30 minutes with patient Telephone Only VAMSHI Monroy, [address], [place], [place], [address], [place] tel:[phone] [facility] Pain disorder with related psychological factorsMajor depressive disorder, recurrent, moderateUnspecifie d dementia without behavioral disturbance 4 Ritu Downs. [address], [address], [place], [place], [address], [place]. tel:[phone] Referring Provider: Ej Desir, [address], [place], [address] . tel:[phone] Psychotherap y, 30 minutes with patient Telephone Only [facility], [address], [place], [place], [address], [place] tel:[phone] [facility] Pain disorder with related psychological factorsMajor depressive disorder, recurrent, moderateUnspecifie d dementia without behavioral disturbance 4 Ritu Downs. [address], [address], [place], [place], [address], [place]. tel:[phone] Referring Provider: Ej Desir, [address], [place], [address] . tel:[phone] [facility], [address], [place], [place], [address], [place] tel:[phone] [facility] No Information 4 Alexei Gomez. [address], [place], [address], [place]. tel:[phone] Referring Provider: Jason Wall, [address], [place], [address]. tel:[phone] [facility], [address], [place], [address], [place] tel:[phone] [facility] back pain (chief complaint) Radiculopathy, lumbar regionSpinal stenosis, lumbar region w/ neurogenic claudicationRadicu lopathy, lumbar regionSpinal stenosis, lumbar region with neurogenic claudication 4 [facility]. [address], [place], [place], [address], [place]. tel:[phone] Referring Provider: Jason Wall, [address], [place], [address]. tel:[phone] [facility], [address], [place], [place], [address], [place] tel:[phone] [facility] No Information 4 Alexei Gomez. [address], [place], [address], [place]. tel:[phone] Referring Provider: MIRA RAMESH. Psychotherap y, 45 minutes with patient Telephone Only [facility], [address], [place], [place], [address], [place] tel:[phone] [facility] Pain disorder with related psychological factorsMajor depressive disorder, recurrent, moderateUnspecifie d dementia without behavioral disturbance 4 Ritu Downs. [address], [address], [place], [place], [address], [place]. tel:[phone] Referring Provider: Ej Desir, [address], [place], [address] . tel:[phone] Est Pt Eval Telehealth [facility], [address], [place], [place], [address], [place] tel:[phone] [facility] Neck Pain (chief complaint) back pain (chief complaint) Postlaminectomy syndrome, not elsewhere classifiedBody mass index (BMI) 39.0-39.9, adultLow back pain 4 Andi Reyes. [address], [address], [place], [address], [place]. tel:[phone] Referring Provider: Ej Desir, [address], [place], [address] . tel:[phone] Psychotherap y, 30 minutes with patient Telephone Only [facility], [address], [place], [place], [address], [place] tel:[phone] [facility] Pain disorder with related psychological factorsMajor depressive disorder, recurrent, moderateUnspecifie d dementia without behavioral disturbance 4 Hadley Alejandra. [address], [address], [place], [address], [place]. tel:[phone] Referring Provider: Ej Desir, [address], [place], [address] . tel:[phone] Psychotherap y, 45 minutes with patient Telephone Only [facility], [address], [place], [place], [address], [place] tel:[phone] [facility] Pain disorder with related psychological factorsMajor depressive disorder, recurrent, moderateUnspecifie d dementia, unspecified severity, with agitation 4 Ritu Downs. [address], [address], [place], [place], [address], [place]. tel:[phone] Referring Provider: Ej Desir, [address], [place], [address] . tel:[phone] [facility], [address], [place], [place], [address], [place] tel:[phone] [facility] Pain disorder with related psychological factorsMajor depressive disorder, recurrent, moderateUnspecifie d dementia without behavioral disturbance 4 Ritu Downs. [address], [address], [place], [place], [address], [place]. tel:[phone] Referring Provider: Ej Desir, [address], [place], [address] . tel:[phone] [facility], [address], [place], [place], [address], [place] tel:[phone] [facility] María No Information 4 Ritu Downs. [address], [address], [place], [place], [address], [place]. tel:[phone] Referring Provider: Ej Desir, [address], [place], [address] . tel:[phone] [facility], [address], [place], [address], [place] tel:[phone] [facility] María left neck pain (chief complaint) Radiculopathy, cervical regionRadiculopath y, cervical region 3 [facility]. [address], [place], [place], [address], [place]. tel:[phone] Referring Provider: Sander Aaron, [address], [place], [address]. tel:[phone] [facility], [address], [place], [place], [address], [place] tel:[phone] [facility] No Information 3 Galen Boucher. [address], [place], [address], [place]. tel:[phone] Referring Provider: Sander Aaron, [address], [place], [address]. tel:[phone] Psychotherap y, 45 minutes with patient Telephone Only [facility], [address], [place], [place], [address], [place] tel:[phone] [facility] Pain disorder with related psychological factorsMajor depressive disorder, recurrent, moderateUnspecifie d dementia without behavioral disturbance 3 Ritu Arellanoni. [address], [address], [place], [place], [address], [place]. tel:[phone] Referring Provider: Ej Desir, [address], [place], [address] . tel:[phone] Psychotherap y, 45 minutes with patient Telephone Only [facility], [address], [place], [place], [address], [place] tel:[phone] [facility] Pain disorder with related psychological factorsMajor depressive disorder, recurrent, moderateUnspecifie d dementia without behavioral disturbance 3 Ritu Mullinstni. [address], [address], [place], [place], [address], [place]. tel:[phone] Referring Provider: Ej Dseir, [address], [place], [address] . tel:[phone] Psychotherap y, 45 minutes with patient Telephone Only [facility], [address], [place], [place], [address], [place] tel:[phone] [facility] Pain disorder with related psychological factorsMajor depressive disorder, recurrent, moderateUnspecifie d dementia, unspecified severity, with agitation 3 Ritu Yareli. [address], [address], [place], [place], [address], [place]. tel:[phone] Referring Provider: Ej Desir, [address], [place], [address] . tel:[phone] Psychiatric Diagnostic Evaluation Telephone Only EMILI Monroy, [address], [place], [place], [address], [place] tel:[phone] [facility] Pain disorder with related psychological factorsMajor depressive disorder, recurrent, moderateUnspecifie d dementia without behavioral disturbance 3 Hadley Alejandra. [address], [address], [place], [place], [address], [place]. tel:[phone] Referring Provider: Ej Desir, [address], [place], [address] . tel:[phone] Est Pt Eval Telehealth [facility], [address], [place], [place], [address], [place] tel:[phone] [facility] Neck Pain (chief complaint) back pain (chief complaint) Body mass index (BMI) 39.0-39.9, adultPostlaminecto my syndrome, not elsewhere classifiedLow back pain 3 Andi Reyes. [address] , [address], [place], [address], [place]. tel:[phone] Referring Provider: Ej Desir, [address], [place], [address] . tel:[phone] [facility], [address], [place], [place], [address], [place] tel:[phone] [facility] Postlaminectomy syndrome, not elsewhere classifiedRadiculo daniel, cervical regionLow back pain, unspecified 3 Elisabeth Melendez. [address], [place], [place], [address], [place]. tel:[phone] Referring Provider: Ej Desir, [address], [place], [address] . tel:[phone] New Pt Eval Moderate [facility], [facility], [address], [place], [place], [address], [place] tel:[phone] [facility] Neck Pain (chief complaint) Postlaminectomy syndrome, not elsewhere classifiedRadiculo daniel, cervical regionLow back painBody mass index (BMI) 39.0-39.9, adult 3 Thang Logan. [address], [place], [place], [address], [place]. tel:[phone] Referring Provider: Ej Desir, [address], [place] [address] . tel:[phone] Family History Family Member Type Diagnosis Age At Onset Brother Problem (finding) Family history of Alcoh olism Brother Problem (finding) Family history of Illeg al Drug Abuse Father Problem (finding) Family history of Prescription Drug Abuse Father Problem (finding) Family history of Alcoh olism Payers Payer name Insurance type Covered libertarian ID Authoriza tion(s) [employer] [id number] Social History Type Description Quantity Date Captured Comments Alcohol Use Details Unknown Caffeine Use Details Unknown Tobacco Use Status No Information Smoking Status No Information Sex Female Chief Complaint And Reason For Visit No Information Reason For Referral Reason For Referral No Information Plan Of Treatment Date Type Action Status Goal Tobacco cessation counseling completed Goal Tobacco cessation counseling completed Goal Lifestyle education regardin g diet completed Goal Lifestyle education regardin g diet completed Goal Tobacco cessation counseling completed Referral Ordered: Pain Management (related to Unspecified dementia, unspecified severity, with agitation) [id number] Ordered: Referrals: Pain Management. Location: [facility]. Evaluate and treat [id number] Referred To: [facility] Ordered: Referrals: [facility] [id number] Ordered: Physical Therapy (related to Radiculopathy, lumbar region) [id number] Referred To: Physical Therapy Ordered: Referrals: Physical Therapy. Location: [facility]. Evaluate and treat [id number] Ordered: Physical Therapy (related to Cervicalgia) [id number] Ordered: Physical Therapy (related to Radiculopathy, cervical region) [id number] Referred To: Physical Therapy Ordered: Referrals: Physical Therapy. Location: [facility]. Consult [id number] Ordered: Referrals: Behavioral Health. Consult. Surgery [id number] Referred To: Physical Therapy Ordered: Referrals: Physical Therapy. Evaluate and treat [id number] Ordered: Referrals: Behavioral Health. Evaluate and treat [id number], [id number], [id number] Order: Radiology OrderMRI - Cervical Spine W/O Contrast ([id number]), Ordered on: [id number] Order: Radiology OrderMRI - Thoracic Spine W/O Contrast ([id number]), Ordered on: [id number] History Of Present Illness Encounter Date Complaint History Of Prese nt Illness lower back pain The pain is loca jason in the low back on both sides. The lower back pain radiates into the tailbone. Pain intensity is currently 9/10.The pain is constant. The pain is described as aching. The following activities make the pain worse: movement. The following activities make the pain better: pain medication. neck pain The pain is loca jason in the posterior neck on both sides. Pain intensity is currently 9/10.The pain is described as aching. The following activities make the pain worse: prolong position and weather changes.The patient denies any relieving factors. Sep-25-2025 lower back pain The pain is loca jason in the low back on both sides. The lower back pain radiates into the left leg. Additional information: L side worse. lower back pain The pain is loca jason in the low back on both sides. Pain intensity is currently 8/10.The pain has been stable . The pain is described as aching and dull. The following activities make the pain worse: everything.The patient denies any relieving factors. neck pain The pain is loca jason in the posterior neck on both sides. Pain intensity is currently 8/10.The pain has been stable . The pain is described as aching and dull. The following activities make the pain worse: everything. The following activities make the pain better: neosporin. lower back pain The pain is loca jason in the low back on both sides. Pain intensity is currently 8/10.The pain has been stable . The pain is described as aching and dull. The following activities make the pain worse: everthing. The following activities make the pain better: biofreeze. neck pain The pain is loca jason in the posterior neck on both sides. Pain intensity is currently 8/10.The pain is described as aching and dull. The following activities make the pain worse: everything.The patient denies any relieving factors. lower back pain The pain is loca jason in the low back on both sides. Pain intensity is currently 5/10.The pain has been stable . The pain is described as aching and dull.The patient denies aggravating factors. The patient denies any relieving factors. neck pain The pain is loca jason in the posterior neck on both sides. Pain intensity is currently 7/10.The pain has been stable . The pain is described as aching and dull.The patient denies aggravating factors. The patient denies any relieving factors. lower back pain The pain is loca jason in the low back on both sides. The lower back pain radiates into the both legs. entire spine pain The primary pa in involves the entire spine. Pain intensity is currently 3/10.The pain has been improving . The pain is described as aching and dull.The patient denies aggravating factors. Additional information: no pain at surgical site. entire spine pain The pain is lo cated in the entire spine. Pain intensity is currently 8/10.The pain is of variable intensity. The pain is described as sharp.The patient denies aggravating factors. The following activities make the pain better: OTC meds. Additional information: some surgical site pain. neck pain The pain is loca jason in the left posterior neck. Pain intensity is currently 8/10. mid back pain The pain is loca jason in the mid back on both sides. The mid back pain radiates into the low back on both sides. The pain pattern also includes the legs and feet. Pain intensity is currently 8/10.The pain has been worsening . The pain is described as aching and numb. The following activities make the pain worse: standing and walking. The following activities make the pain better: sitting and OTC meds. neck pain The pain is loca jason in the posterior neck on both sides. Pain intensity is currently 8/10.The pain has been worsening . The pain is described as aching. The following activities make the pain worse: standing and walking. The following activities make the pain better: OTC meds and sitting. lower back pain The pain is loca jason in the low back on both sides. The lower back pain radiates into the both legs. neck pain The pain is loca jason in the left posterior neck. Bilateral whole back pain neck pain The pain is loca jason in the posterior neck on both sides. The neck pain radiates into the whole back. The pain pattern also includes the legs. Pain intensity is currently 8/10.The pain is constant. The pain is described as aching. The following activities make the pain worse: movement and daily activity. The following activities make the pain better: sitting. neck pain The pain is loca jason in the left posterior neck. Pain intensity is currently 8/10. neck pain (comments) Comments: P atient reports she has been sick with Norovirus which exacerbates her pain. neck pain The pain is loca jason in the posterior neck on both sides. The neck pain radiates into the entire back. The pain pattern also includes the bilateral legs to knees. Pain intensity is currently 9/10.The pain has been worsening . The pain is constant. The following activities make the pain worse: daily activity and illness. The following activities make the pain better: sitting. Additional information: left neck is worsening. neck pain The pain is loca jason in the posterior neck on both sides. The neck pain radiates into the entire back. The pain pattern also includes the both legs to knees. Pain intensity is currently 8/10.The pain has been worsening . The pain is constant. The following activities make the pain worse: weather changes, walking and daily activity. The following activities make the pain better: rest. neck pain The primary pain involves the neck. The neck pain radiates into the both knees. Pain intensity is currently 8/10. The following activities make the pain worse: walking. The following activities make the pain better: lying down and sitting. lower back pain The pain is loca jason in the low back on both sides. The pain radiates into the both legs.The lower back pain radiates into the buttocks on both sides. Pain intensity is currently 8/10. The following activities make the pain worse: walking. The following activities make the pain better: pain medication, elevation and vibration. neck pain The pain is loca jason in the posterior neck on both sides. Pain intensity is currently 8/10. The following activities make the pain worse: walking. The following activities make the pain better: pain medication, elevation and vibration. hip pain The pain is loca jason in the right hip. The hip pain radiates into the right buttock. The pain pattern also includes the right leg and right knee. Pain intensity is currently 8/10.The pain is described as sharp. The following activities make the pain worse: walking.The patient denies any relieving factors. lower back pain The pain is loca jason in the low back on both sides. Pain intensity is currently 9/10.The pain has been stable . The pain is constant. hip pain The pain is loca jason in the right hip. The hip pain radiates into the right knee. The pain pattern also includes the right buttock. Pain intensity is currently 7/10. is 9/10 at its worst,The pain has been worsening . The pain is constant. The pain is described as sharp. The following activities make the pain worse: direct pressure and walking.The patient denies any relieving factors. lower back pain The pain is loca jason in the low back on both sides. The lower back pain radiates into the right hip. Pain intensity is currently 7/10. is 9/10 at its worst The following activities make the pain better: walking. neck pain The pain is loca jason in the left posterior neck. neck pain (comments) Comments: Gerald gomez reports she had CT of brain recently. lower back pain The pain is loca jason in the low back on both sides. Pain intensity is currently 7/10.The pain is described as sharp. The following activities make the pain worse: walking and weather changes. The following activities make the pain better: THC. neck pain The pain is loca jason in the left posterior neck. Pain intensity is currently 8/10.The pain is constant. The pain is described as sharp. The following activities make the pain worse: physical activity, weather changes and walking. The following activities make the pain better: THC topical. neck pain The pain is loca jason in the posterior neck on both sides. The pain pattern also includes the lower back. neck pain (comments) Comments: Gerald gomez reports worsening dementia, balance and depression. She reports that her depression medications were changed but she cannot recall what they are. neck pain The pain is loca jason in the left posterior neck. The pain pattern also includes the lower back. Pain intensity is currently 9/10.The pain is described as bones rubbing. neck pain The pain is loca jason in the posterior neck on both sides. The neck pain radiates into both shoulders. Pain intensity is currently 9/10.The pain is described as sharp. The following activities make the pain better: cold. neck pain The pain is loca jason in the posterior neck on both sides. The neck pain radiates into the low back on both sides. Pain intensity is currently 8/10.The pain is described as aching. The following activities make the pain worse: bending. The following activities make the pain better: sitting. lower back pain The pain is loca jason in the low back on both sides. Pain intensity is currently 8/10. lower back pain (comments) Comme nts: Patient reports 2 recent falls, both of which she hit her head, one of which she visited the ER at [facility]. lower back pain The pain is loca jason in the low back on both sides. Pain intensity is currently 8/10. shoulder pain The pain is loca jason in the right shoulder. Pain intensity is currently 8/10. neck pain The pain is loca jason in the posterior neck on both sides. The neck pain radiates into both hands. Pain intensity is currently 8/10. neck pain The pain is loca jason in the posterior neck on both sides. hand pain The pain is loca jason in the both hands. The hand pain radiates into the both forearm arms. The pain pattern also includes the both knees. lower back pain The pain is loca jason in the low back on both sides. neck pain The pain is loca jason in the left posterior neck. Pain intensity is currently 8/10.The pain is described as Jabbing. back pain The problem is s table. Location of pain is middle back, lower back and neck. Pain is radiated to the SEA legs to feet. The patient describes the pain as an ache, burning, shooting and stabbing. Symptoms are aggravated by bending, daily activities and walking. Symptoms are relieved by pain meds/drugs and sitting. back pain (comments) Comments: [facility], has dementia back pain Location of pain is middle back, lower back and neck. Pain is radiated to the left calf, right calf, left foot, right foot, left thigh and right thigh. The patient describes the pain as an ache, burning, shooting and stabbing. Symptoms are aggravated by bending, standing and walking. Symptoms are relieved by injection and sitting. back pain Location of pain is lower back. back pain (comments) Comments: S he states her low back pain is increased with standing and walking. She has positive shopping cart syndrome. She has been having this pain since she was 29 years old and occurred after she was on prednisone 80mg 3x/day. She is unsure if she would like to proceed with the MILD or [facility] procedures at this time. Neck pain Additional infor sandy: She states her neck pain has been improved since last appointment. She finds that her previously completed JHONY provided some pain relief that is holding. back pain Location of pain is lower back. back pain Location of pain is lower back. Neck Pain Location of pain is bilateral anterior neck, bilateral lateral neck and bilateral posterior neck. The patient describes the pain as Shooting, Throbbing and deep. Aggravating factors include bending, lifting and walking. Relieving factors include rest and marijuana. back pain Location of pain is lower back. Pain is radiated to the left ankle, right ankle, left calf, right calf, left foot, right foot, left thigh and right thigh. The patient describes the pain as deep, shooting and throbbing. Symptoms are aggravated by bending, lifting and walking. Symptoms are relieved by rest and marijuana. left neck pain Radiates down L arm Neck Pain Location of pain is left sided neck. There is radiation of pain to the head and left shoulder. The patient describes the pain as deep. Aggravating factors include turning head. back pain Location of pain is upper back, middle back and lower back. The patient describes the pain as deep. Studies Reviewed X-RAY - Lumbar Spine (AP, Neutral, Lateral Neutral, Flexion, Extension Views) performed on 02/22/2023. Interpretation: See module, Result: 1 No acute fracture, spondylolysis or evidence of segmental instability.2. Grade 1 anterolisthesis of L3 on L4, L4 on L5 and L5 on S1.3. Disc space narrowing at L5-S1 through L3-4, L1-2 and T12-L1 is consistent with internal disc degeneration at these levels.4. Hypertrophic degenerative facet changes at L3-4 through L5-S1. Studies Reviewed MRI - Cervical Spine W/O Contrast performed on 02/22/2023. Interpretation: See module, Result: Multilevel degenerative cervical/thoracic spondylosis, anterior instrumented/interbody fusion at C5-6 and C6-7 and the following notable finding1 Chronic mild C4-5 and moderate C3-4 central stenosis without cord compression2. Notable chronic moderately severe right T2-3, moderately severe bilateral C7-T1, severe right/moderately severe left C6-7, C4-5 and C3-4 foraminal stenosis.3. No acute fracture or intrinsic cord lesion.4. Multilevel hypertrophic degenerative facet arthrosis that varies from mild to mild/moderate as detailed above.5. Osteoarthritic changes at the left lateral C1-2 articulation. Studies Reviewed MRI - Lumbar Sp ine W/O Contrast performed on 02/22/2023. Interpretation: See module, Result: Chronic Scheuermann's-type changes, multilevel degenerative lumbar and lower thoracic spondylosis and the following specific notable findings:1 Chronic severe L4-5 and moderately severe L3-4 central stenosis with subarticular impingement upon the traversing bilateral L5 and right L4 nerve roots at these levels, respectively.2. No acute fracture or spondylolysis, although edematous degenerative endplate changes are demonstrated at L5-S1 through L3-4, L1-2 through T11-12 and inferiorly at L2.3. Multilevel hypertrophic degenerative facet arthrosis that varies from mild to mild/moderate and multilevel chronic foraminal narrowing and very some mild to mild/moderate without ganglionic compression as detailed above. Neck Pain Additional infor sandy: History of spinal surgery. Neck Pain (comments) Comments: Gerald patricia reports [facility]Patient reports having anterior cervical surgery about 5 years ago on 4 of her discs. She denies the surgery helping. She reports the pain radiates into her bilateral arms. Patient reports being told she has avascular necrosis in the past. She denies having ever seen a associate professor of musicology. 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, lumbar region - Schedule trigger p oint injection for neck pain*Talk to help desk support or call [phone]- Requested records from [facility]- Continue behavioral health with Na as needed- Continue celebrex 100mg up to 2x/day with food- Follow up with your primary care provider for your brain bleed - Follow up with [employer] reps for spinal cord stimulator reprogramming*Call [employer] [facility] at or schedule in clinic- Follow up with advanced practice provider at [facility] in 1 month as needed, in clinic Related to Postlaminectomy syndrome, not elsewhere classified Giving encouragement to exercise Related to Body mass index [BMI] 38.0-38.9, adult *This is a test to s ee if you would be a good candidate for radiofrequency ablation. Pay close attention to how you feel the day of the procedure. If 80% or more relief can proceed with the radiofrequency. 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, lumbar region - Follow up with [facility] [employer] reps for spinal cord stimulator reprogramming*Call [employer] reps at or schedule in clinic- Continue behavioral health with Na as needed.- Continue celebrex 100mg up to 2x/day with food- Suggest you follow up with primary care provider regarding breast and potential mammogram- Schedule trigger point injection- Follow up with advanced practice provider at [facility] in 1 month as needed, in clinic Related to Postlaminectomy syndrome, not elsewhere classified - Schedule confirmat ory lumbar medial branch block at [facility]*Call [phone] to schedule *This is a TEST block, pay attention to how you feel the day of the procedure. If you experience 80% or more short-term pain relief, continue with radiofrequency ablation (TREATMENT). 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 If you experience 80% or more short-term pain relief, continue with radiofrequency ablation (TREATMENT). 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 If you experience 80% or more short-term pain relief, continue with radiofrequency ablation (TREATMENT). 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, lumbar region - Follow up with [facility] reps for spinal cord stimulator reprogramming*Call [employer] at or schedule in clinic- Continue behavioral health with Na as needed.- Continue celebrex 100mg up to 2x/day with food- Follow up 3-4 weeks after injection, telehealth okay Related to Postlaminectomy syndrome, not elsewhere classified Lifestyle education Related to E levated blood-pressure reading, w/o diagnosis of htn Lifestyle education regarding di et Related to Body mass index [BMI] 36.0-36.9, adult *This is a test to s ee if you would be a good candidate for radiofrequency ablation. Pay close attention to how you feel the day of the procedure. If 80% or more relief can proceed with confirmatory test followed by the radiofrequency. 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 If you experience 80% or more short-term pain relief, continue with confirmatory branch block (2nd TEST) and radiofrequency ablation (TREATMENT). 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, lumbar region - Continue post op c are:*Wear white abdominal binder consistently until October 07*Wear black binder when up and moving until October 07*Use ice and ibuprofen as much as possible to help with pain*Limit bending, lifting and twisting (lifting over head or more than 10lbs, and twisting more than placement of your seatbelt on either side) until October 07- Follow up with [employer] for spinal cord stimulator reprogramming*Call [employer] reps at or schedule in clinic- Continue behavioral health with Na as scheduled 09/20/24- Continue celebrex 100mg up to 2x/day with food- Follow up as needed Related to Postlaminectomy syndrome, not elsewhere classified Giving encouragement to exercise Related to Body mass index [BMI] 36.0-36.9, adult - Keep confirmatory lumbar medial branch block as scheduled 10/15/24*This is a TEST block, pay attention to how you feel the day of the procedure. If you experience 80% or more short-term pain relief, continue with confirmatory branch block (2nd TEST) and radiofrequency ablation (TREATMENT). 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, lumbar region - Good to see you to day!- Continue post op care:*Continue antibiotics until gone*Wear white abdominal binder consistently for the next 5 weeks*Wear black binder when up and moving for the next 5 weeks*Use ice and ibuprofen as much as possible to help with pain*Limit bending, lifting and twisting*Showers are ok, but no soaking in a bath tub, hot tubs, or any body of water until the incisions are fully healed- Follow up with [employer] for spinal cord stimulator reprogramming*Call [employer] reps at or schedule in clinic- Continue behavioral health with Na as scheduled 09/13/24- Continue Oxycodone 5mg 1 tab every 4 hrs as needed for post op pain- Continue celebrex 100mg up to 2x/day with food- Follow up for 2nd post op appointment as scheduled*Call [phone] if you notice any signs of infection including fever, worsening redness or draining from incision or have any questions Related to Postlaminectomy syndrome, not elsewhere classified Giving encouragement to exercise Related to Body mass index [BMI] 38.0-38.9, adult - Continue to take o ral antibiotics as prescribed*Call [facility] if you have any questions Related to Postlaminectomy syndrome, not elsewhere classified - Ordered lumbar med ial branch block confirmatory at bilateral L3,4,5*This is a test to see if you would be a good candidate for radiofrequency ablation. Pay close attention to how you feel the day of the procedure. If 80% or more relief can proceed with the radiofrequency ablation. 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 Singh Related to Postlaminectomy syndrome, not elsewhere classified - Continue behaviora health with Na as scheduled 08/23/24- Continue lidocaine patches and Nortriptyline 10mg at bedtime as prescribed from outside provider- Continue celebrex 100mg up to 2x/day with food- Prescribed Tramadol 50mg 1x/day as needed #14 tablets Related to Radiculopathy, cervical region *This is a test to s ee if you would be a good candidate for radiofrequency ablation. Pay close attention to how you feel the day of the procedure. If 80% or more relief can proceed with confirmatory test followed by the radiofrequency. 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 - Continue behavioral health with Na as scheduled 06/21/24- Keep pool therapy as scheduled 06/28/24- Continue lidocaine patches and Nortriptyline 10mg at bedtime as prescribed from outside provider- Continue celebrex 100mg up to 2x/day with food- Follow up with Mikki Lin PA-C as needed, telehealth okay Related to Radiculopathy, cervical region - Schedule spinal co rd stimulator trial for neck pain, approved until 08/24/24*Call [phone] to schedule with implant team Related to Postlaminectomy syndrome, not elsewhere classified - Follow up in the [facility] in 2-3 weeks to discuss the results of today's procedure Related to Radiculopathy, cervical region - Consider repeat jose mbar steroid injection pending SCS trial results Related to Radiculopathy, lumbar region - Awaiting insurance approval for spinal cord stimulator trial*Implant team will call to schedule once insurance approves Related to Postlaminectomy syndrome, not elsewhere classified - Can consider lumba r medial branch blocks on the path to radiofrequency ablation for low back pain after completing 3 months of physical therapy *Find more information at [employer] 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 I'm so sorry you are sick- Rest up and drink lots of fluids, including Gatorade or propel (something with electrolytes). I hope you feel better soon!- Keep cervical epidural steroid injection as scheduled 06/06/24 @3:00pm (arrive 2:30) - Reschedule physical therapy to 06/06/24 *Can consider pool therapy with physical therapist - Continue behavioral health with Na as scheduled 05/24/24- Continue lidocaine patches and Nortriptyline 10mg at bedtime as prescribed from outside provider- Continue celebrex 100 mg up to 2x a day with food. 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- Schedule Cervical Epidural Steroid Injection *Call [phone] or talk to help desk support.- Continue behavioral health with Na as scheduled- Schedule physical therapy as needed*Call [phone] to schedule*Can consider pool therapy with physical therapist - Continue lidocaine patches and Nortriptyline 10mg at bedtime as prescribed from outside provider- Continue celebrex 100 mg up to 2x a day with food, for fill on 05/01/24- Consider repeat lumbar steroid injection pending SCS trial results - Follow up with Mikki Lin PA-C in 4 weeks, telehealth okay Related to Radiculopathy, cervical region - Awaiting insurance approval for spinal cord stimulator trial*Implant team will call to schedule once insurance approves Related to Postlaminectomy syndrome, not elsewhere classified Lifestyle education Related to H ypertension - Continue behaviora l health with Na as scheduled- Will have medical records sent lumbar, thoracic, and cervical MRI reports to you - Schedule physical therapy as needed*Call [phone] to schedule*Can consider pool therapy with physical therapist - Continue lidocaine patches and Nortriptyline 10mg at bedtime as prescribed from outside provider- Continue celebrex 100 mg up to 2x a day with food, for fill on 05/01/24- Consider repeat lumbar steroid injection pending SCS trial results - Follow up with Mikki Lin PA-C in 4 weeks, [place] CL[facility] Related to Radiculopathy, lumbar region - Can consider lumba r medial branch blocks on the path to radiofrequency ablation for low back pain after completing 3 months of physical therapy *Find more information at [employer] 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, lumbar region - Awaiting insurance approval for spinal cord stimulator trial*Implant team will call to schedule once insurance approvesNeed to schedule an IN CLINIC evaluation before insurance will approve Related to Postlaminectomy syndrome, not elsewhere classified - Continue to monito r relief from cervical epidural steroid injection Related to Radiculopathy, cervical region - Nice to talk with you today!- Continue behavioral health with Na as scheduled - Schedule physical therapy*Call [phone] to schedule*Can consider pool therapy with physical therapist at first appointment - Continue lidocaine patches- Continue celebrex 100 mg up to 2x a day with food - Consider repeat lumbar steroid injection pending SCS trial results - Follow up with Mikki Lin PA-C as needed, telehealth okay Related to Radiculopathy, lumbar region - Awaiting insurance approval for spinal cord stimulator trial*Implant team will call to schedule once insurance approves Related to Postlaminectomy syndrome, not elsewhere classified - Can consider lumba r medial branch blocks on the path to radiofrequency ablation for low back pain after completing 3 months of physical therapy *Find more information at [employer] 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, lumbar region - Continue to monito r relief from cervical epidural steroid injection Related to Radiculopathy, cervical region Giving encouragement to exercise Related to Body mass index [BMI] 34.0-34.9, adult - Continue to monito r relief from cervical epidural steroid injection Related to Radiculopathy, cervical region - Can consider lumba r medial branch blocks on the path to radiofrequency ablation for low back pain after completing 3 months of physical therapy *Find more information at [employer] 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 - Follow up with Mikki Lin PA-C, in clinic Related to Radiculopathy, lumbar region - Nice to talk with you today!- Continue behavioral health with Na as scheduled 02/09/24, 02/16/24- Continue lidocaine patches- Follow up with Mikki Lin PA-C in a few weeks, telehealth okay Related to Radiculopathy, lumbar region - Continue prior aut horization for spinal cord stimulator trial*Complete updated imaging*Keep PHYSICAL THEARPY as scheduled 02/12/24*Implant team will call to schedule once insurance approves- Keep cervical and thoracic MRI at [facility] as scheduled tomorrow 02/09/24 Related to Postlaminectomy syndrome, not elsewhere classified - Keep adapted physical education aide apy as scheduled 02/12/24- Can consider cervical medial branch blocks on the path to radiofrequency ablationfor neck pain after completing 3 months of physical therapy *Find more information at [employer] Related to Cervicalgia - Can consider lumba r medial branch blocks on the path to radiofrequency ablation for low back pain after completing 3 months of physical therapy *Find more information at [employer] 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, lumbar region - Continue to monito r relief from cervical epidural steroid injection Related to Radiculopathy, cervical region Giving encouragement to exercise Related to Body mass index [BMI] 34.0-34.9, adult - Continue prior aut horization for spinal cord stimulator trial*Complete updated imaging*Keep PHYSICAL THEARPY as scheduled 02/12/24*Implant team will call to schedule once insurance approves- Schedule cervical and thoracic MRI at [facility]*Call [phone] to schedule Related to Postlaminectomy syndrome, not elsewhere classified - Nice to talk with you today!- Continue to monitor relief from cervical epidural steroid injection- Continue behavioral health with Na as scheduled 01/26/24, 02/02/24, 02/08/24- Continue lidocaine patches- Follow up with Mikki Lin PA-C as scheduled 02/08/24, telehealth okay Related to Radiculopathy, cervical region - Can consider lumba r medial branch blocks on the path to radiofrequency ablation for low back pain after completing 3 months of physical therapy *Find more information at [employer] 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, lumbar region - Keep adapted physical education aide apy as scheduled 02/12/24- Can consider cervical medial branch blocks on the path to radiofrequency ablationfor neck pain after completing 3 months of physical therapy *Find more information at [employer] Related to Cervicalgia Giving encouragement to exercise Related to Body mass index [BMI] 34.0-34.9, adult - Schedule lumbar me dial branch blocks-initial procedure at bilateral L3,4,5 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, lumbar region - Prior authorizatio n for spinal cord stimulation w/ [employer]- Follow up with behavioral health and physical therapy- Implant Team will meet patient before discharge- Follow up in the clinic to continue with prior authorization- Schedule MRI of the thoracic spine w/ [facility]- Schedule MRI of the cervical spine w/ [facility] Related to Postlaminectomy syndrome, not elsewhere classified - Follow up in the clinic Relate d to Radiculopathy, cervical region - Nice to talk with you today!- Schedule cervical epidural steroid injection, approved 01/22/24 - 02/02/24*Call [phone] to schedule- Continue behavioral health with Na as scheduled 01/19/24- Continue lidocaine patches- Follow up with Mikki Lin PA-C in 1 month, telehealth okay Related to Radiculopathy, cervical region - SCHEDULE PHYSICAL THERAPY at [facility] so we can move forward with radiofrequency ablation (longer lasting treatment then steroid injections). Your insurance requires 3 months of physical therapy before we can do this. And it could help your neck and low back pain as well as balance! 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 Your insurance requires 3 months of physical therapy before we can do this. And it could help your neck and low back pain as well as balance! 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, lumbar region - Will resubmit repe at cervical epidural steroid injection for insurance approval after 12/22/23, ordered today Related to Radiculopathy, cervical region Giving encouragement to exercise Related to Body mass index [BMI] 39.0-39.9, adult - Can consider lumba r medial branch blocks on the path to radiofrequency ablation for low back pain after completing 3 months of physical therapy *Find more information at kompany 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 Your insurance requires 3 months of physical therapy before we can do this. And it could help your neck and low back pain! *Will have scheduling team call you to schedule- Can consider cervical medial branch blocks on the path to radiofrequency ablationfor neck pain after completing 3 months of physical therapy *Find more information at kompany - Continue lidocaine patches- Follow up with Mikki Lin PA-C as needed, telehealth okay Related to Cervicalgia Giving encouragement to exercise Related to Body mass index [BMI] 39.0-39.9, adult - Nice to talk with you today!- SCHEDULE PHYSICAL THERAPY at [facility] so we can move forward with radiofrequency ablation (longer lasting treatment then steroid injections). Your insurance requires 3 months of physical therapy before we can do this. And it could help your pain! *Talk to help desk support or call [phone] to schedule- SCHEDULE TRIGGER POINT INJECTION for muscle pain in the neck and shoulders*Call [phone] to schedule in CLINIC with MD- Continue tramadol as prescribed by outside provider- Continue lidocaine patches- Follow up with Mikki Lin PA-C as needed, telehealth okay Related to Myalgia - Consider consult w ith a neurosurgeon if you experience new or worsening symptoms of weakness, numbness, loss of dexterity Related to Postlaminectomy syndrome, not elsewhere classified - Can consider cervi savanna medial branch blocks on the path to radiofrequency ablationfor neck pain after completing 3 months of physical therapy *Find more information at kompany Related to Cervicalgia - Can consider lumba r medial branch blocks on the path to radiofrequency ablation for low back pain after completing 3 months of physical therapy *Find more information at kompany 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 Can schedule in November or December. Related to Radiculopathy, cervical region Giving encouragement to exercise Related to Body mass index [BMI] 39.0-39.9, adult - Follow up in clini c to discuss results from today's injection Related to Radiculopathy, lumbar region - Consider consult w ith a neurosurgeon if you experience new or worsening symptoms of weakness, numbness, loss of dexterity Related to Postlaminectomy syndrome, not elsewhere classified - Can consider cervi savanna medial branch blocks on the path to radiofrequency ablationfor neck pain after completing 3 months of physical therapy *Find more information at kompany Related to Cervicalgia - Can consider lumba r medial branch blocks on the path to radiofrequency ablation for low back pain after completing 3 months of physical therapy *Find more information at kompany 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, lumbar region - Continue monitorin g pain relief from cervical epidural steroid injection Related to Radiculopathy, cervical region - Good to see you to day!- SCHEDULE PHYSICAL THERAPY at [facility]*Talk to help desk support or call [phone] to schedule- Reschedule repeat lumbar epidural steroid injection for low back pain *We will reorder this today, [facility] will call to schedule once insurance approves, if you don't hear back in a few days call [phone] - Requested records from [facility]- Continue tramadol as prescribed by outside provider- Continue lidocaine patches- Follow up with Mikki Lin PA-C as needed, telehealth okay Related to Radiculopathy, lumbar region Giving encouragement to exercise Related to Body mass index [BMI] 39.0-39.9, adult - Follow up with neelam davidson care provider regarding memory concerns Related to Age-related cognitive decline - Follow up with neelam davidson care provider regarding recurrent falls- Ordered physical therapy. Schedule at help desk support or call [facility]. 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 Related to Radiculopathy, cervical region - Ordered repeat lum bar epidural steroid injection, to be completed after the cervical injection September of 2023.*[facility] will call to schedule once insurance approves, if you do not hear from us for 1 week, call [phone]- Follow up with Mikki Lin PA-C as needed, telehealth okay Related to Radiculopathy, lumbar region Lifestyle education regarding di et Related to Body mass index [BMI] 39.0-39.9, adult Hypertension education Related t o Elevated blood-pressure reading, w/o diagnosis of htn - Ordered initial jose mbar medial branch block*[facility] will call to schedule once insurance approves, if you don't hear back in a few days call [phone]*This is a TEST block, pay attention to how you feel the day of the procedure. 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, lumbar region Related to Radic ulopathy, lumbar region - Awaiting insurance approval for MILD (Minimally Invasive Lumbar Decompression) procedure*Implant team will call to schedule once insurance approves Related to Spinal stenosis, lumbar region with neurogenic claudication - Follow up with [facility] practice provider as needed, telehealth okay Related to Postlaminectomy syndrome, not elsewhere classified - Sent referral to [facility] for physical therapy*They will call to schedule, if you don't hear back in a few days call [phone]- Complete 3 months of physical therapy for insurance prior authorization of initial cervical medial branch block Related to Cervicalgia - Nice to talk with you today!- Can repeat cervical epidural steroid injection every 3 months as needed- Consider consult with a neurosurgeon if you experience new or worsening symptoms of weakness, numbness, loss of dexterity. Related to Radiculopathy, cervical region Giving encouragement to exercise Related to Body mass index [BMI] 39.0-39.9, adult - Ordered initial ce rvical medial branch block *[facility] will call to schedule once insurance approves, if you don't hear back in a few days call [phone]*This is a TEST block to see if some of the pain in your neck is coming from your facet joints, pay attention to how you feel the day of the procedure. If you experience 80% or more pain relief, continue with confirmatory branch block and radiofreqency ablation. Related to Cervicalgia - Nice to meet you!- Can repeat cervical epidural steroid injection every 3 months as needed- Consider consult with a neurosurgeon if you experience new or worsening symptoms of weakness, numbness, loss of dexterity. Related to Radiculopathy, cervical region - Follow up with a Gerald navarrete Assembler Fitter or Nurse Practitioner as needed, telehealth okay Related to Postlaminectomy syndrome, not elsewhere classified - Prior authorizatio n for MILD and Minuteman procedures in process*Schedule behavioral health evaluation so we can submit to your insurance to see if it would be covered- Continue to monitor pain relief from lumbar epidural steroid injection- Can repeat lumbar epidural steroid injection every 3 months as needed Related to Low back pain - Schedule cervical medial branch blocks-intial at bilateral C2,3,4 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, cervical region - Schedule MILD procedure Relate d to Radiculopathy, lumbar region - Prior authorizatio n for cervical spinal cord stimulation w/ [facility]- Follow up with behavioral health and physical therapy- Implant Team will call the patient- Follow up in the clinic to continue with prior authorization Related to Postlaminectomy syndrome, not elsewhere classified Giving encouragement to exercise Related to Hypertension Giving encouragement to exercise Related to Body mass index [BMI] 39.0-39.9, adult - Follow up [facility]- Follow up with scheduling to move lumbar injection sooner Related to Radiculopathy, cervical region - Ordered repeat cer vical epidural steroid injection at C7-T1, schedule as needed Related to Radiculopathy, cervical region - Continue Behaviora l Health-Follow up with a Physicians Assembler Fitter or Nurse Practitioner as needed Related to Postlaminectomy syndrome, not elsewhere classified -Prior authorization for MILD and Minuteman procedures in process- Ordered repeat lumbar epidural steroid injection at L3-4, schedule as needed -Schedule an appointment in CLINIC with Dr. Linda regarding MILD and Minuteman procedures Related to Low back pain - Follow up in [facility] to discuss the results of today's injection- Begin authorization for MILD at L3-4 and L4-5- Begin authorization for Interspinous Process Decompression device at L4-5 Related to Radiculopathy, lumbar region -Schedule MRI of the lumbar spine at [facility] -Schedule lateral flexion vs extension of the lumbar spine at [facility] -Schedule stationary neutral A/P and lateral view x-rays at [facility] -Complete lumbar epidural steroid injection on 04/05 -Schedule pool therapy following injection Related to Low back pain -Warm water pool phy sical therapy to be continued-Continue Behavioral Health-Follow up in 2 weeks with a Physicians Assembler Fitter or Nurse Practitioner after getting injection Related to Postlaminectomy syndrome, not elsewhere classified Giving encouragement to exercise Related to Body mass index [BMI] 39.0-39.9, adult - Follow up in [facility] to discuss today's injection Related to Radiculopathy, cervical region Procedures: -Complet e cervical epidural steroid injection on 04/05 -Do not eat or drink for 8 hours if having sedation -Need roll off driver if having sedationPhysical Therapy/Behavioral Health/Other Referring: -Warm water pool physical therapy to be continued -Continue Behavioral HealthFollow-up: -Follow up in 2 weeks with a Physicians Assembler Fitter or Nurse Practitioner after getting injection Related to Postlaminectomy syndrome, not elsewhere classified - Order lumbar epidu ral steroid injection -Do not eat or drink for 8 hours if having sedation -Need roll off driver if having sedation Related to Low back pain Giving encouragement to exercise Related to Body mass index [BMI] 39.0-39.9, adult Procedures: -Order c ervical epidural steroid injection procedure with sedation to be done after getting imaging -Do not eat or drink for 8 hours if having sedation -Need roll off driver if having sedationImaging: -[facility]/Other Referring: -Warm water pool physical therapy to be ordered -Behavioral Health to be orderedFollow-up: -Follow up in 2-4 weeks with a Physicians Assembler Fitter or Nurse Practitioner after getting imaging Related to Postlaminectomy syndrome, not elsewhere classified Imaging: -Order MRI of the lumbar spine at [facility] -Order lateral flexion vs extension of the lumbar spine at [facility] -Order stationary neutral A/P and lateral view x-rays at [facility] Related to Low back pain - Requested medical records from [facility] Related to Radiculopathy, cervical region Giving encouragement to exercise Related to Body mass index [BMI] 39.0-39.9, adult Assessments Type Assessment Date No Information Patient Care Teams Name Effective Dates (start - stop) Status Members No Information
[2025-03-19] VITALS (13 sets, daily range): BP systolic 124–137; BP diastolic 69–79; PULSE 50–59; RESP 12–21; TEMP 36.6; O2SAT 94–100
--- NOTE | 2025-03-19 16:55 | CRLHL7_ITS ---
For Patients: As a result of the Century Cures Act, medical imaging exams and procedure reports are released immediately into your electronic medical record. You may view this report before your referring provider. If you have questions, please contact your health care provider. INDICATION: Chest pain COMPARISON: None. TECHNIQUE: Frontal and lateral radiographic views of the chest. FINDINGS: Partially imaged left shoulder arthroplasty. Partially imaged cervical spinal fusion hardware and cervical spinal cord stimulator with a right posterior chest wall battery pack. Slight elevation of the left hemidiaphragm. No pneumothorax. No pleural effusion. No definite focal pulmonary consolidation. Normal heart size. Mildly tortuous thoracic aorta. No evident acute displaced rib fracture. There are osseous degenerative changes. There is slight multilevel anterior vertebral body wedging. Surgical clips project over the right upper abdominal quadrant. IMPRESSION: No definite focal pulmonary consolidation. Slight elevation of the left hemidiaphragm. Dictated by Yoel Ohara MD @ 03/19/2025 5:12:49 PM (Electronically Signed)
--- OUTSIDE RECORDS SUMMARY | 2025-03-19 17:14 | XMS_ITS | Encounter Summary ---
Author Organization [facility] Address [address] [place] [address] Care Team Providers Care Shipping Manager Name Role Phone [facility] Unavailable [phone] Merrick Olivas MD Unavailable Merrick Olivas MD Unavailable Lorna Hurt PA-C Unavailable [phone] Rebekah Lowery [facility] Unavailable Cayla Kumar DIRECTOR OF ASSESSMENT Unavailable [phone] Cayla Leavitt PA-C Unavailable Brenda Duval DO Unavailable [phone] Brenda Duval DO Unavailable [phone] Brooks Kang PhD LP Unavailable Cayla Leavitt PA-C Unavailable Saskia Lowe MD Primary Care Provider [phone] Saskia Lowe MD Unavailable Encounter Details DateTypeDepartmentCare Team (Latest Contact Info)Jbltqrnugbc83/12/2025Travel Social History Tobacco UseTypesPacks/DayYears UsedDateSmoking Tobacco: FormerCigarettes Smokeless Tobacco: Never Comments:Very small amount - 2 years. Infrequent Alcohol UseStandard Drinks/WeekCommentsNo0 (1 standard drink = 0.6 oz pure alcohol)B1300 Health LiteracyAnswerDate RecordedHow often do you need to have someone help you when you read instructions, pamphlets, or other written material from your doctor or pharmacy?Ozpqweqqo28/13/2025UDIT-CAnswerDate RecordedQ1: How often do you have a drink containing alcohol?Never01/06/2025Q2: How many drinks containing alcohol do you have on a typical day when you are drinking?Patient does not drink01/06/2025Q3: How often do you have six or more drinks on one occasion?Never01/06/2025PHQ-2AnswerDate RecordedPHQ-2 Score3 01/31/2025[facility] [place] [facility] - Occupational Stress QuestionnaireAnswerDate RecordedDo you feel stress - tense, restless, nervous, or anxious, or unable to sleep at night because yourmind is troubled all the time - these days?To some vptmxc1301/06/2025Exercise Vital SignAnswerDate Recorded On average, how many [...] in an abandoned building, in an overnight mcfp, or couch-surfing.)Yes01/31/2025re you worried about losing your [...] InformationValueDate RecordedSex Assigned at BirthNot on fileLegal ZbdPtcznw10/04/2012 3:21 AM CSTGender IdentityNot on file Sexual OrientationNot on filedocumented as of this encounter Plan of Treatment DateTypeDepartmentCare Team (Latest Contact Info)Ckwgerbxbrr40/12/2026 10:00 AM CSTOffice Visit [facility] [address] [place] [address] Cayla Leavitt PA-C [address] [place] [address] documented as of this encounter Goals GoalPatient Goal TypeAssociated ProblemsRecent ProgressPatient-Stated?Author Establish Stable Housing Care PlanSDOH LACK OF STABLE BEURBVT144%(04/28/2023 10:06 AM RESTAURANT SERVICE MANAGER)Alessia Rutledge LSW Note: Barriers: I am unhappy where I am living. I have a cat. Strengths: I have a [facility]/ Elderly Waiver Field Supervisor Patient expressed understanding of goal: Yes Action steps to achieve this goal: 1. I will begin looking for a new place to live. Counter Top Assembler will assist me with connecting with Elderly Waiver Field Supervisor about this 2. I will find a resource that an help me with moving my belongings. Care coordination will assist as needed. MY[facility] ECC DEP WELCOME- GOAL TEMPLATE Care PlanMYC ECC DEP WELCOME- PROBLEM TEMPLATENoBackground, Analytics MYC ECC DEP WELCOME- GOAL TEMPLATE Care PlanMYC ECC DEP WELCOME- PROBLEM TEMPLATENoBackground, Analyticsdocumented as of this encounter Visit Diagnoses Not on filedocumented in this encounter Additional Health Concerns Active ProblemsNoted DateDiagnosed DateSDOH LACK OF STABLE VHKMBDA6803/30/2023MYC ECC DEP WELCOME- PROBLEM DNFTMZCK72/27/2025MYC ECC DEP WELCOME- PROBLEM TEMPLATE 01/27/2025InfectionOnset DateLast IndicatedResolved 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 Source: MeetMe. 11/25/2016AssessmentNoted TimePHQ-9 Depression Total Score: 12104/02/2024 12:17 PM CSTdocumented as of this encounter Care Teams Team MemberRelationshipSpecialtyStart DateEnd Date Saskia Lowe MD [address] [place] [address] PCP - GeneralInternal Medicine11/21/24 [facility] ([facility] ([place])02/15/19 Merrick Olivas MD [address] [place] [address] MDCardiovascular Disease07/27/21 Merrick Olivas MD [address] [place] [address] MDCardiovascular Disease07/27/21 Lorna Hurt PA-C [address] [place] [address] Physician AssistantUrology08/18/21 Rebekah Lowery [facility] [address] [place] [phone] PharmacistPharmacist10/13/21 Cayla Kumar LSW [facility] [address] [place], [place] [address] Lead Care CoordinatorPrimary Care - CC04/27/23 Cayla Leavitt PA-C [address] [place] [address] Physician AssistantEndocrinology, Diabetes, and Pozuhidvtj62/24/24 Brenda Duval DO [address] [place] [address] PhysicianNeurology1/10/18 Brenda Duval DO [address] [place] [address] Assigned Neuroscience Provider08/16/24 Brooks Kang, PhD LP [address] [place] [phone] Assigned Behavioral Health Provider11/16/24 Cayla Leavitt PA-C [address] [place] [id number] Assigned Endocrinology Provider10/16/24 Saskia Lowe MD [address] [place], [place] [id number] Assigned PCP01/23/25documented as of this encounter
--- OUTSIDE RECORDS SUMMARY | 2025-03-19 17:14 | XMS_ITS | Encounter Summary ---
Author Organization [place] Address [address] [place] [address] Care Team Providers Care Executive Meeting Manager Name Role Phone [facility] Unavailable [phone] Merrick Olivas MD Unavailable Merrick Olivas MD Unavailable Lorna Hurt PA-C Unavailable Rebekah Lowery [facility] Unavailable Cayla Kumar [employer] Unavailable Cayla Leavitt PA-C Unavailable Brenda Duval DO Unavailable [phone] Brenda Duval DO Unavailable [phone] Brooks Kang PhD LP Unavailable Cayla Leavitt PA-C Unavailable Saskia Lowe MD Primary Care Provider Saskia Lowe MD Unavailable Reason for Visit * ReasonCommentsMedication Refill Encounter Details DateTypeDepartmentCare Team (Latest Contact Info)Btqljmqhhqh04/16/[address] [address] Cayla Leavitt PA-C [address] [place] [address] Medication Refill Social History Tobacco UseTypesPacks/DayYears UsedDateSmoking Tobacco: FormerCigarettes Smokeless Tobacco: Never Comments:Very small amount - 2 years. Infrequent Alcohol UseStandard Drinks/WeekCommentsNo0 (1 standard drink = 0.6 oz pure alcohol)B1300 Health LiteracyAnswerDate RecordedHow often do you need to have someone help you when you read instructions, pamphlets, or other written material from your doctor or pharmacy?Nvydxshhf99/13/2025UDIT-CAnswerDate RecordedQ1: How often do you have a drink containing alcohol?Never01/06/2025Q2: How many drinks containing alcohol do you have on a typical day when you are drinking?Patient does not drink01/06/2025Q3: How often do you have six or more drinks on one occasion?Never01/06/2025PHQ-2AnswerDate RecordedPHQ-2 Score3 01/31/2025[facility] [place] [facility] Occup[facility] - Occupational Stress QuestionnaireAnswerDate RecordedDo you feel stress - tense, restless, nervous, or anxious, or unable to sleep at night because yourmind is troubled all the time - these days?To some djtwuv3401/06/2025Exercise Vital SignAnswerDate Recorded On average, how many [...] in an abandoned building, in an overnight group home, or couch-surfing.)Yes01/31/2025re you worried about losing your [...] InformationValueDate RecordedSex Assigned at BirthNot on fileLegal WmtQkbozx81/04/2012 3:21 AM CSTGender IdentityNot on file Sexual OrientationNot on filedocumented as of this encounter Miscellaneous Notes * Telephone Encounter - Kathie Castro RN - 03/12/2025 10:35 AM FOOD AND NUTRITION SERVICES SUPERVISOR 09/17/24: Hypothyroidism. She would also like to have her thyroid levels checked. A lab order was placed today. I will contact her with the results. Requested Prescriptions Pending Prescriptions Disp Refills levothyroxine (SYNTHROID/LEVOTHROID) 112 MCG tablet [Pharmacy Med Name: Levothyroxine Sodium 112 MCG Tablet] 8 tablet 11 Si TABLET BY MOUTH ONCE DAILY Thyroid Protocol Failed - 03/12/2025 10:35 AM Failed - Medication is active on med list and the sig matches. RN to manually verify dose and sig if red X/fail. If the protocol passes (green check), you do not need to verify med dose and sig. A prescription matches if they are the same clinical intention. For Example: once daily and every morning are the same. The protocol can not identify upper and lower case letters as matching and will fail. For Example: Take 1 tablet (50 mg) by mouth daily TAKE 1 TABLET (50 MG) BY MOUTH DAILY For all fails (red x), verify dose and sig. If the refill does match what is on file, the RN can still proceed to approve the refill request. If they do not match, route to the appropriate provider. Failed - Normal TSH on file in past 12 months Recent Labs Lab Test 02/12/25 1041 TSH 9.48* Passed - Patient is 12 years or older Passed - Recent (12 month) or future (90 days) visit with authorizing provider's specialty (provided they have been seen in the past 15 months) The patient must have completed an in-person or virtual visit within the past 12 months or has a future visit scheduled within the next 90 days with the authorizing provider???s specialty. Urgent care and e-visits do not qualify as an office visit for this protocol. Passed - Medication indicated for associated diagnosis Medication is associated with one or more of the following diagnoses: Hypothyroidism Thyroid stimulating hormone suppression therapy Thyroid cancer Acquired atrophy of thyroid Passed - No active on record If patient is or has had a positive test, please check TSH. Passed - No positive test in past 12 months If patient is or has had a positive test, please check TSH. AND NUTRITION SERVICES SUPERVISOR documented in this encounter Plan of Treatment DateTypeDepartmentCare Team (Latest Contact Info)Oburerejoph65/12/2026 10:[address] [facility] [address] [place] [address] Cayla Leavitt PA-C [address] [place] [address] documented as of this encounter Goals GoalPatient Goal TypeAssociated ProblemsRecent ProgressPatient-Stated?Author Establish Stable Housing Care PlanSDOH LACK OF STABLE [id number]%(04/28/2023 10:06 AM FOOD AND NUTRITION SERVICES SUPERVISOR)Alessia Rutledge, [employer] Note: Barriers: I am unhappy where I am living. I have a cat. Strengths: I have a [employer]/ Elderly Waiver Police Specialist Patient expressed understanding of goal: Yes Action steps to achieve this goal: 1. I will begin looking for a new place to live. Application Trainer will assist me with connecting with Elderly Waiver Police Specialist about this 2. I will find a resource that an help me with moving my belongings. Care coordination will assist as needed. MYC ECC DEP WELCOME- GOAL TEMPLATE Care PlanMYC ECC DEP WELCOME- PROBLEM TEMPLATENoBackground, Analytics MYC ECC DEP WELCOME- GOAL TEMPLATE Care PlanMYC ECC DEP WELCOME- PROBLEM TEMPLATENoBackground, Analyticsdocumented as of this encounter Visit Diagnoses Diagnosis Hypothyroidism, unspecified type documented in this encounter Additional Health Concerns Active ProblemsNoted DateDiagnosed DateSDOH LACK OF STABLE UQVQMEH9703/30/2023MY ECC DEP WELCOME- PROBLEM UEIHZHDB48/27/2025MYC ECC DEP WELCOME- PROBLEM TEMPLATE 01/27/2025InfectionOnset DateLast IndicatedResolved 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 Source: [place]. 11/25/2016AssessmentNoted TimePHQ-9 Depression Total Score: 12104/02/2024 12:17 PM CSTdocumented as of this encounter Care Teams Team MemberRelationshipSpecialtyStart DateEnd Date Saskia Lowe MD [address] [place] [address] PCP - GeneralInternal Medicine11/21/24 [facility] ([facility] ([place])02/15/19 Merrick Olivas MD [address] [place] [address] MDCardiovascular Disease07/27/21 Merrick Olivas MD [address] [place] [address] MDCardiovascular Disease07/27/21 Lorna Hurt PA-C [address] [place] [id number] Physician AssistantUrology08/18/21 [facility] CenterRebekah enrique, [facility] [address] [address] PharmacistPharmacist10/13/21 Cayla Kumar, [employer] [address] [place] [address] Lead Care CoordinatorPrcaromont healthry Care - CC04/27/23 Cayla Leavitt PA-C [address] [place], [place] [address] Physician AssistantEndocrinology, Diabetes, and Yqhefzbsdc54/24/24 Brenda Duval DO [address] [place], [place] [address] PhysicianNeurology1/10/18 rBenda Duval DO [address] [place], [place] [address] Assigned Neuroscience Provider08/16/24 Brooks Kang, PhD LP [address] [place] [id number] Assigned Behavioral Health Provider11/16/24 Cayla Leavtit PA-C [address] [place], [place] [address] Assigned Endocrinology Provider10/16/24 Saskia Lowe MD [address], [place] [address] Assigned PCP01/23/25documented as of this encounter
--- OUTSIDE RECORDS SUMMARY | 2025-03-19 17:14 | XMS_ITS | Clinical Summary ---
Author Organization [place] Address [address] [address] Care Team Providers Care Marketing Production Coordinator Name Role Phone [facility] Unavailable Merrick Olivas MD Unavailable Merrick Olivas MD Unavailable Lorna Hurt PA-C Unavailable [phone] Rebekah Lowery [facility] Unavailable Cayla Kumar INDUSTRIAL CAFETERIA MANAGER Unavailable [phone] Cayla Leavitt PA-C Unavailable Brenda Duval DO Unavailable [phone] Brenda Duval DO Unavailable [phone] Brooks Kang PhD LP Unavailable Cayla Leavitt-C Unavailable Saskia Lowe MD Primary Care Provider [phone] Saskia Lowe MD Unavailable Allergies Active AllergyReactionsCriticalityNoted CgbmAuicewabIcrtazeh22/16/2022Gabapentin Other (See Comments),Qdlcffk4311/18/2019 Makes patient feel spaced out. Rgpsswlyxk31/21/2019 Medications MedicationSigDispense QuantityRefillsLast FilledStart DateEnd DateStatus furosemide (LASIX) 20 MG tablet Indications:Leg edemaTake 1 tablet (20 mg) by mouth daily 30 tablet 2Active calcium carbonate-vitamin D (OSCAL) 250-3.125 MG-MCG TABS per tablet Take 1 tablet by mouth 2 times dailyActive famotidine (PEPCID) 20 MG tablet Take 20 mg by mouth 2 times dailyActive pantoprazole (PROTONIX) 40 MG EC tablet Take 40 mg by mouth 2 times daily.Active QUEtiapine (SEROQUEL) 25 MG tablet Take 37.5 mg by mouth at bedtime. Through PsychiatristActive escitalopram (LEXAPRO) 5 MG tablet Take 5 mg by mouth daily. Through PsychiatristActive amitriptyline (ELAVIL) 10 MG tablet Take 10 mg by mouth at bedtime. Through PsychiatristActive triamcinolone (KENALOG) 0.1 % external lotion Apply topically 2 times daily as needed for irritation.4Active amLODIPine (NORVASC) 5 MG tablet Indications:Essential hypertensionTake 1 tablet (5 mg) by mouth at bedtime. 90 tablet 4Active polyethylene glycol (MIRALAX) 17 GM/Dose powder Indications:Slow transit constipationTake 17 g (1 Capful) by mouth daily. 510 g 5Active senna-docusate (SENOKOT-S/PERICOLACE) 8.6-50 MG tablet Indications:Slow transit constipationTake 1 tablet by mouth daily. 90 tablet 5Active acetaminophen (TYLENOL) 500 MG tablet Indications:Chronic bilateral low back pain with bilateral sciatica2 TABLETS (1000MG) BY MOUTH THREE TIMES DAILY 30 tablet 5Active Polyethylene Glycol 400 (BLINK TEARS) 0.25 % GEL Place 0.05 mLs into both eyes every 8 hours as needed (prn).Active cycloSPORINE (RESTASIS) 0.05 % ophthalmic emulsion Indications:Dry eyesPlace 1 drop into both eyes 2 times daily. 5.5 mL 5Active traMADol (ULTRAM) 50 MG tablet Take 50 mg by mouth every 6 hours as needed for severe pain.Active diclofenac (VOLTAREN) 1 % topical gel Indications:Chronic bilateral low back pain without sciaticaApply 2 g topically 4 times daily as needed for moderate pain. 100 g 5Active calcium carbonate (SM ANTACID) 500 MG chewable tablet Indications:Gastroesophageal reflux disease without esophagitisTake 1 tablet (500 mg) by mouth daily as needed for heartburn. 30 tablet 5Active baclofen (LIORESAL) 10 MG tablet Indications:Sacrococcygeal painTake 1 tablet (10 mg) by mouth 3 times daily as needed for muscle spasms. 30 tablet 5Active levothyroxine (SYNTHROID/LEVOTHROID) 112 MCG tablet Indications:Hypothyroidism, unspecified type1 TABLET BY MOUTH ONCE DAILY 30 tablet 5Active levothyroxine (SYNTHROID/LEVOTHROID) 112 MCG tablet Indications:Hypothyroidism, unspecified typeTake 1 tablet (112 mcg) by mouth daily. 90 tablet 5105/13/2024Discontinued Active Problems ProblemNoted DateDiagnosed DateSubdural tagiaswibe71/05/2025Chronic pain bxxxzaaf86/11/2025 Overview (08/04/2024): [facility] Moderate recurrent major mlbewtcctw61/11/2025 Overview (08/04/2024): Follows up with Psychiatry Umm Walter MBBS ( [facility]) Borderline personality tboxhrdo53/05/2024 Overview (08/04/2024): Follows up with Psychiatrist Umm Walter MBBS ( [facility]) Diastolic CHF, zjbgzpf0406/30/2023Morbid ynlllef1405/13/2021Major neurocognitive /17/2022Vitamin D fvgdvslter45/16/2022OB (shortness of breath) 10/16/2019 Overview (05/12/2021): Has had extensive eval, unclear cause. Neg w/u cards/pulm/ENT/GI. Generalized bvlsekot87/13/2020Knee pain02/23/2019Status post total left knee /21/2019Class 2 obesity due to excess calories in adult02/14/2019 Gastroesophageal reflux disease without hdhvchzvelp06/19/2019Other insomnia 02/12/20195069Vghrwbwfr03/19/0267Uveaifwhnmjdtm66/19/2019Cervical spondylosis without owsnijffav06/19/2019Primary osteoarthritis of left knee02/12/2019 Physical tkgkqixrztekys87/19/2019Mild cognitive tntcfwdxro90/19/2019Gait dfycpxwkgzo34/10/2019Meniere's anywpce2405/07/20185575Hhincyajk39/01/2018Essential udcegmsebzlk31/28/2017Major depressive disorder, recurrent episode, severe 01/10/2008 Overview (05/12/2021): Major depressive disorder, recurrent episode, severe, without mention of psychotic behavior (HRC) Qispwyucjwpoeu29/07/2003 Resolved Problems ProblemNoted DateDiagnosed DateResolved DateAVN (avascular necrosis of bone) InfectionMuscle spasm02/14/2019 5Anemia due to blood loss, acuteDepression 5Advanced directives, counseling/nnqcusqzhd86/19/2019 02/13/2019Cervical zskxqbkauce345Aftercare following joint omkgkyestja05Shoulder joint replacement by other means Pain in joint, ankle and footThoracic or lumbosacral neuritis or radiculitis, erhywroqybh65Displacement of lumbar intervertebral disc without askxwpkeya17Cervicalgia ack pains08/04/2024 Overview (12/25/2012): Problem list name updated by automated process. Provider to review and confirm Encounters DateTypeDepartmentCare QkchQbibcaqtzbz34/18/2025Telephone [address] [place] [address] Saskia Lowe MD Form Request ([facility] * [id number])03/12/2025Telephone [address] [place] [address] Adam Matt MD Forms ([facility] # [id number])03/11/2025Refill [address] [address] Cayla Leavitt PA-C Medication Tcpgca6103/07/2025Telephone [address] [place] [address] Saskia Lowe MD Forms ([facility] [id number] [facility] 01/09/2025 to 03/09/2025)02/17/2025Results Follow-Up [address] [phone] Cayla Leavitt PA-C 02/12/2025 10:00 AM CSTOffice Visit [address] [place] [address] Saskia Lowe MD Sacrococcygeal pain (Primary Dx); Chronic pain syndrome; Essential hypertension; Hypothyroidism, unspecified type5Care Coordination [address] [place] [address] Saskia Lowe MD 02/12/20251327Tshkpq01/12/2025 2:00 PM CSTOffice Visit [address] [place] [address] Cora Mcghee APRN MAXILLOFACIAL SURGEON Subdural hematoma (H) (Primary Dx); Nonintractable headache, unspecified chronicity pattern, unspecified headache type; Hypothyroidism, unspecified type; Need for vaccination; Memory changes; Closed head injury, pdinymq7902/05/2025Tephone [facility] [address] [place] [phone] Saskia Lowe MD Medication Request (T[place] )02/05/20254425Zxryzt49/12/2025[facility] [address] [place] [address] Saskia Lowe MD Ocepdxcp04/11/2025[facility] [address] [facility] [address] [facility] [facility] [address] [place] [address] Saskia Lowe MD Medication Sptyhgca15/11/2025[facility] [address] [facility] [address] [place] [address] Saskia Lowe MD Patient/info Update; Qbzxwcrm52/10/2025phone [facility] [address] [place] [phone] Saskia Lowe MD Forms ([place])02/02/2025 7:54 AM SENIOR STATISTICAL PROGRAMMER - 02/02/2025 1:06 PM CSTEmergency [facility] Emergency Dept [address] [place] [address] Bogdan Deal MD Nonintractable headache, unspecified chronicity pattern, unspecified headache type (Primary Dx); Neck pain on left side; Traumatic subdural hematoma, subsequent encounter; Sacral pain Discharge Disposition: Home or Self Care02/02/20257783Lyasdq55/07/2025 1:00 PM SENIOR STATISTICAL PROGRAMMER Office Visit [address] [phone] Nu Whiteside, PA-C Hospital discharge follow-up (Primary Dx); Subdural hemorrhage (H); Encounter for screening involving social determinants of health (SDoH); Need for ndozwreedai04/07/2025Telephone [place] [address] [place] [address] Saskia Lowe MD Forms ([facility] orders)01/31/2025Telephone [place] [address] [place] [address] Saskia Lowe MD Patient Request (Pt made )01/31/20254206Jtcqij23/05/2025 5:55 PM SENIOR STATISTICAL PROGRAMMER - 01/30/2025 4:29 PM CSTHospital Encounter [facility] Observation Dept [address] [place] [address] Melissa Munoz MD Kriz, Sagar Geronimo, Subdural hemorrhage (H) (Primary Dx); Fall, initial encounter; Contusion of right hand, initial encounter; Chronic pain of both knees; Cervical spondylosis without myelopathy; Chronic pain syndrome; Other specified counseling Discharge Disposition: [facility] [place]19/05/5679Khntus00/30/2025 Telephone [place] [address] [place] [phone] Saskia Lowe MD Call Back (Patient would like to speak with her a care team)01/23/2025Telephone [place] [address] [place] [address] Saskia Lowe MD Dzzysmfi52/24/2025Telephone [place] [address] [place] [address] Saskia Lowe MD Medication Question (Depression PRN)01/16/2025Telephone [place] [address] [place] [address] Saskia Lowe MD Pt. Information/vxycurqnhpl99/22/2025 9:30 AM CDTOffice Visit [facility] [address] [place] [address] Saskia Lowe MD Moderate recurrent major depression (H) (Primary Dx); Hypothyroidism, unspecified type; Essential hypertension; Memory changes; Chronic bilateral low back pain without ppkprelp91/22/2025Telephone [facility] [address] [place] [address] Saskia Lowe MD Pt. Information/nkkubusbibg97/22/2025Telephone [facility] [address] [place] [address] Saskia Lowe MD Hzixjv2001/15/20254838Xxarxy68/21/2025Telephone [facility] [address] [place] [address] Saskia Lowe MD Patient Wdvnfjt0001/13/2025Telephone [place] [address] [place] [address] Saskia Lowe MD Ftvpvda2701/10/2025Medical Correspondence [facility] Information Management [address] [place] [address] [address] [place] [address] Scan, Non-Provider [facility] BIDIQR0801/10/2025Telephone [facility] [address] [place] [address] Saskia Lowe MD Forms (Gresham Sharma)01/10/2025Telephone [facility] [address] [place] [address] Saskia Lowe MD Medication Question (Possession of her medication questions )01/08/2025Telephone [facility] [address] [place] [address] Saskia Lowe MD General (General health issues)01/07/2025Telephone [facility] [address] [place] [address] Saskia Lowe MD Phwqhabo75/13/2025Refill [facility] [address] [place] [address] Saskia Lowe MD Refill Gekfeqs2001/05/2025Telephone [facility] [address] [place] [address] Saskia Lowe MD Pt. Information/instruction; Refill Gxxazhf8301/03/2025 4:00 PM CDTVirtual Visit [place] [address] [place] [address] Saskia Lowe MD Memory changes (Primary Dx); Moderate recurrent major depression (H); Chronic pain /05/2025Telephone [facility] [address] [place] [address] Saskia Lowe MD Patient Request; Moxcgyiurj20/03/2025Telephone [facility] [address] [place] [phone] Saskia Lowe MD Yvxhvcdo13/03/2025Telephone [facility] [address] [place] [address] Saskia Lowe MD Patient Request for Note/Bjhuai7312/26/2024Results Follow-Up [address] [address] Cayla Leavitt PA-C Dx: Hypothyroidism, unspecified type12/24/2024 10:30 AM CDTOffice Visit [facility] [address] [place] [phone] Saskia Lowe MD Moderate recurrent major depression (H) (Primary Dx); Chronic bilateral low back pain without sciatica; Chronic pain syndrome; Essential hypertension; Hypothyroidism, unspecified type; Hyperparathyroidism; Vitamin D jdgmewtuso63/30/2025Travelfrom Last 3 Months Immunizations ImmunizationAdministration DatesNext DueCOVID-19 12+ (Pfizer)3COVID-19 MONOVALENT 12+ (Pfizer)2COVID-19 Monovalent 18+ (Moderna)02/16/2021, 04/10/2020Flu 65+ (Fluad)12/25/2024,01/03/2024Flu, Dvguyrujzih13/13/2008, 02/01/2007,03/24/2005,12/16/2003,03/25/2003Influenza (High Dose) Trivalent,PF (Fluzone)12/28/2018,03/01/2018,03/31/2017,12/16/2015,01/30/2015Influenza (IIV3) PF03/22/2002,02/22/1999,01/20/1998Influenza (prior to 2023)12/22/2011,11/03/2010 Influenza Vaccine 65+ (Fluzone HD)01/31/2023,12/29/2021,12/17/2020,12/18/2019 Influenza Vaccine IM Ages 6-35 Months 4 Valent (PF)12/12/2012Influenza, Split Virus, Trivalent, Pf (Fluzone\Fluarix)12/22/2011,11/03/2010Pneumo Conj 13-V (2010&after)01/09/2015Pneumococcal 23 kahrau2012/16/2015,06/29/2010RSV (Abrysvo) 04/19/2023TDAP Vaccine (Adacel)02/22/1999TDAP Vaccine (Boostrix)06/24/2009Zoster recombinant adjuvanted (Shingrix)12/25/2024,05/02/2019Zoster vaccine, live 10/23/2013 Social History Tobacco UseTypesPacks/DayYears UsedDateSmoking Tobacco: FormerCigarettes Smokeless Tobacco: Never Tobacco Cessation:Counseling Given: Not Answered Comments:Very small amount - 2 years. Infrequent Alcohol UseStandard Drinks/WeekCommentsNo0 (1 standard drink = 0.6 oz pure alcohol)B1300 Health LiteracyAnswerDate RecordedHow often do you need to have someone help you when you read instructions, pamphlets, or other written material from your doctor or pharmacy?Ebslzfosa27/13/2025UDIT-CAnswerDate RecordedQ1: How often do you have a drink containing alcohol?Never01/06/2025Q2: How many drinks containing alcohol do you have on a typical day when you are drinking?Patient does not drink01/06/2025Q3: How often do you have six or more drinks on one occasion?Never01/06/2025PHQ-2AnswerDate RecordedPHQ-2 Score3 01/31/2025[facility] [place] [facility] - Occupational Stress QuestionnaireAnswerDate RecordedDo you feel stress - tense, restless, nervous, or anxious, or unable to sleep at night because yourmind is troubled all the time - these days?To some budkaj6001/06/2025Exercise Vital SignAnswerDate Recorded On average, how many [...] InformationValueDate RecordedSex Assigned at BirthNot on fileLegal PbcUgrygo39/04/2012 3:21 AM CSTGender IdentityNot on file Sexual OrientationNot on file Last Filed Vital Signs Vital SignReadingTime TakenCommentsBlood Qleubvwu791/7702/12/2025 9:37 AM SENIOR STATISTICAL PROGRAMMER Lvlyk903102/12/2025 9:37 AM IJOEytuubyrwgp10.6 ??C (97.9 ??F)02/12/2025 9:37 AM CSTRespiratory Bnsd5923 9:37 AM CSTOxygen Aypndsyzlv67%02/12/2025 9:37 AM CSTInhaled Oxygen Concentration--Jvsjpt456.3 kg (230 lb)02/12/2025 9:37 AM DXYEmkqhj822.5 cm (5' 2)02/12/2025 9:37 AM CSTBody Mass Index42.0702/12/2025 9:37 AM SENIOR STATISTICAL PROGRAMMER Plan of Treatment DateTypeDepartmentCare Team (Latest Contact Info)Utqhrpbsqbc75/12/2026 10:00 AM CSTOffice Visit [facility] [address] [place] [address] Cayla Leavitt PA-C [address] [place] [address] Health MaintenanceDue DateLast DoneCommentsCT HVVZTWERXPJW54/24/1950FLEX SIG 1949HF ACTION PLAN1949sDNA (Cologuard)1949LUNG CANCER LDZZUOETT88, 10/10/2019, 11/30/2016, Additional history exists MTM Pharmacist Annual Med Review (once per year)03/27/20249036IROUM90/20/2025 03/15/2024, 03/09/2023, 05/20/2021, Additional history qdmsmwMFR31/26/2026 05/22/2024, 12/19/2023, 03/09/2023, Additional history wcyoxkADZ02/26/2026 05/22/2024, 05/25/2019COVID-19 VACCINE ( season)/03/2024, 01/03/2024, 01/31/2023, Additional history ouqlmaVKI94, 01/29/2025, 12/24/2024, Additional history existsMEDICARE ANNUAL WELLNESS VISIT , 11/17/2023, 03/09/2023, Additional history existsFALL RISK GLAXDOZJST23/13/202610/, 11/21/2024, 07/30/2024, Additional history existsGAD AZHLSNJXJA67, 03/15/2024CBC, 01/29/2025, 06/29/2024, Additional history existsANNUAL REVIEW OF HM ORDERS , 03/15/2024, 01/31/2023HQ-91, 01/06/2025, 11/21/2024, Additional history existsDIABETES DESKOYKWG32/06/2028 01/30/2025, 01/29/2025, 12/24/2024, Additional history existsCOLONOSCOPY /05/2019COLORECTAL CANCER ZWHGJMNCZ04/03/2030ADVANCE CARE PLANNING /06/2024, 08/06/2024, 05/14/2021, Additional history exists DTAP/TDAP/TD VACCINE (4 - Td or Tdap), 06/24/2009, 02/22/1999DEXA7010/22/2021, 04/18/2018, 04/18/2018PNEUMOCOCCAL VACCINE 50+ WVGRVQclspsubt01/21/2016, 01/09/2015, 06/29/2010HEPATITIS C SCREENING Jbclpkruy31/06/2022, 03/14/2017, 09/15/2016RSV YPZHYKAPiogtxgpi11/24/2024MAMMO CITPEVLQIPansqzgrtqio19/12/2024, 01/15/2021, 01/15/2021, Additional history existsINFLUENZA XVJQEBDYbsplpeva27/01/2025, 01/03/2024, 01/31/2023, Additional history existsZOSTER GGMYAASWmtlbyuco06/01/2025, 05/02/2019, 10/23/2013TSH W/FREE T4 AQPRVIEolkjfkja00/19/2025, 02/12/2025, 12/24/2024, Additional history existsHPV VACCINE (No Doses Required)CompletedMENINGITIS VACCINEAged OutNo longer eligible based on patient's age to complete this topic Goals GoalPatient Goal TypeAssociated ProblemsRecent ProgressPatient-Stated?Author Establish Stable Housing Care PlanSDOH LACK OF STABLE [id number]%(04/28/2023 10:06 AM SENIOR STATISTICAL PROGRAMMER)Alessia Rutledge LSW Note: Barriers: I am unhappy where I am living. I have a cat. Strengths: I have a [employer]/ Elderly Waiver Jowl Trimmer Patient expressed understanding of goal: Yes Action steps to achieve this goal: 1. I will begin looking for a new place to live. Air Crew Officer will assist me with connecting with Elderly Waiver Jowl Trimmer about this 2. I will find a resource that an help me with moving my belongings. Care coordination will assist as needed. MYC ECC DEP WELCOME- GOAL TEMPLATE Care PlanMYC ECC DEP WELCOME- PROBLEM TEMPLATENoBackground, Analytics MYC ECC DEP WELCOME- GOAL TEMPLATE Care PlanMYC ECC DEP WELCOME- PROBLEM TEMPLATENoBackground, Analytics Procedures Procedure NamePriorityDate/TimeAssociated SkpgsnishJrjivihqWZSLgudgwm42/19/2025 10:41 AM SENIOR STATISTICAL PROGRAMMER Hypothyroidism, unspecified type T4 NTITOovwolu72/19/2025 10:41 AM SENIOR STATISTICAL PROGRAMMER Hypothyroidism, unspecified type XR SACRUM AND COCCYX 2 EVCDEKZRN30/09/2025 10:31 AM SENIOR STATISTICAL PROGRAMMER ISTAT BASIC CHEM ICA HEMATOCRIT KSTOJKJH70/09/2025 8:55 AM SENIOR STATISTICAL PROGRAMMER CTA HEAD NECK W KCZNFYBIKUFO65/09/2025 8:48 AM [address]IOR [address]ISTICAL PRO[address]MER CT HEAD W/O QFIRJAFARFRQ79/09/2025 8:48 AM SENIOR STATISTICAL PROGRAMMER EXTRA PURPLE TOP RGQOFKWM46/09/2025 8:04 AM SENIOR STATISTICAL PROGRAMMER EXTRA GREEN TOP (LITHIUM HEPARIN) XLGBXLTF49/09/2025 8:04 AM SENIOR STATISTICAL PROGRAMMER EXTRA RED TOP GVSFWBYI00/09/2025 8:04 AM SENIOR STATISTICAL PROGRAMMER EXTRA BLUE TOP TNUUROMG59/09/2025 8:04 AM SENIOR STATISTICAL PROGRAMMER EXTRA SFIZXTGC35/09/2025 8:04 AM SENIOR STATISTICAL PROGRAMMER CBC WITH GMTBRHDXPGxiihnh45/06/2025 5:21 AM SENIOR STATISTICAL PROGRAMMER BASIC METABOLIC PANEL (LIMITED OCCURRENCES)Tdezkmh0101/30/2025 5:21 AM [address]IOR [address]ICAL PRO[address] CT HEAD W/O ZSIQGSWBZydpokm47/06/2025 12:45 AM SENIOR STATISTICAL PROGRAMMER XR LUMBAR SPINE 2/3 FIFLGHMOV01/05/2025 7:57 PM SENIOR STATISTICAL PROGRAMMER XR HAND RIGHT G/E 3 NPGITBGOU35/05/2025 7:56 PM SENIOR STATISTICAL PROGRAMMER XR SACRUM AND COCCYX 2 GOORWESPV24/05/2025 7:56 PM SENIOR STATISTICAL PROGRAMMER ROUTINE UA WITH MICROSCOPIC REFLEX TO BGEJNNJJASA42/05/2025 7:34 [address] HEAD W/O UGWYSTSEYCQX36/05/2025 6:50 PM SENIOR STATISTICAL PROGRAMMER CBC WITH PLATELETS AND DIFFERENTIAL (LIMITED OCCURRENCES)STAT103/31/2024 6:30 PM SENIOR STATISTICAL PROGRAMMER CBC WITH PLATELETS AND HHQVSKDSQSWDITOP96/05/2025 6:30 PM SENIOR STATISTICAL PROGRAMMER BASIC METABOLIC PANEL (LIMITED OCCURRENCES)STAT103/31/2024 6:30 PM SENIOR STATISTICAL PROGRAMMER EKG 12-LEAD, TRACING WWJWQCDQ43/05/2025 6:01 PM SENIOR STATISTICAL PROGRAMMER T4 QGWLJbynpkb19/30/2025 11:04 AM CDT Hypothyroidism, unspecified type TSH WITH FREE T4 HMUFPNLhyozwk39/30/2025 11:04 AM CDT Hypothyroidism, unspecified type VITAMIN D DEFICIENCY HRWMHRBUAMblszdy27/30/2025 11:04 AM CDT Vitamin D deficiency PARATHYROID HORMONE DKTBJACnulhon93/30/2025 11:04 AM CDT Hyperparathyroidism BASIC METABOLIC UEHREVnxnjuk66/30/2025 11:04 AM CDT Hyperparathyroidism Vitamin D deficiency Hypothyroidism, unspecified type IONIZED ZJDJCFBIsyxfcq23/30/2025 11:04 AM CDT Hyperparathyroidism OCCULT BLOOD GTSBPXYBN86/26/2025 10:21 AM SENIOR STATISTICAL PROGRAMMER COMPREHENSIVE METABOLIC BFJOYQVLK44/26/2025 10:01 AM SENIOR STATISTICAL PROGRAMMER LIPID REFLEX TO DIRECT LDL GBISHKcjynnu12/20/2024 3:45 PM SENIOR STATISTICAL PROGRAMMER Essential hypertension MA DIAGNOSTIC BILATERAL W/ ROQCHddkpoi00/12/2024 8:36 AM CDT Breast pain, right HEPATITIS C SCREEN REFLEX TO HCV RNA QUANT AND TYVCVWFJJwlorna64/06/2022 3:50 PM CDT Need for hepatitis C screening test Encounter for medical examination to establish care DX HIP/PELVIS/SPINE W LAT FRACTION ZOPKAJQPSpzbafe09/29/2022 2:25 PM CDT Osteopenia of multiple sites COLONOSCOPY - HIM UDJVEzqwpkx73/03/2020 CT CHEST PULMONARY EMBOLISM W WNQHPEJHBMGG74/19/2016 4:01 PM CDT from Last 3 Months or Most Recently Relevant to Health Maintenance Results * (ABNORMAL) TSH (02/12/2025 10:41 AM SENIOR STATISTICAL PROGRAMMER)ComponentValueRef RangeTest Method Analysis TimePerformed AtPathologist SignatureTSH9.48(H)0.30 - 4.20 uIU/mL 02/13/2025 2:06 PM CSTSH LABORATORYSpecimen (Source)Anatomical Location / LateralityCollection Method / VolumeCollection TimeReceived TimeBloodBLOOD SPECIMEN / UnknownVenipuncture / Mciiphr5402/12/2025 10:41 AM CST02/12/2025 10:41 AM SENIOR STATISTICAL PROGRAMMER Narrative Authorizing ProviderResult TypeResult StatusSaracarolina LOCKWOOD - BLOOD ORDERABLESFinal ResultPerforming OrganizationAddressCity/State/ZIP CodePhone Number LABORATORY [facility] [address] floor, [address] [place] [address], [facility] [phone] * T4 free (02/12/2025 10:41 AM SENIOR STATISTICAL PROGRAMMER) Only the most recent of2 resultswithin the time period is included. ComponentValueRef RangeTest MethodAnalysis TimePerformed AtPathologist Signature Free T41.170.90 - 1.70 ng/dL02/13/2025 2:06 PM CSTSH LABORATORYSpecimen (Source) Anatomical Location / LateralityCollection Method / VolumeCollection Time Received TimeBloodBLOOD SPECIMEN / UnknownVenipuncture / Tezqvmm1802/12/2025 10:41 AM CST02/12/2025 10:41 AM SENIOR STATISTICAL PROGRAMMER Narrative Authorizing ProviderResult TypeResult StatusSaracarolina LOCKWOOD - BLOOD ORDERABLESFinal ResultPerforming OrganizationAddressCity/State/ZIP CodePhone Number [facility] [address], [address] [place] [address], [facility] [phone] * XR Sacrum and Coccyx 2 Views (02/02/2025 10:31 AM SENIOR STATISTICAL PROGRAMMER) Only the most recent of2 resultswithin the time period is included. Anatomical RegionLateralityModalityAbdomen/PelvisDigital RadiographySpecimen (Source)Anatomical Location / LateralityCollection Method / VolumeCollection TimeReceived Time02/02/2025 10:31 AM SENIOR STATISTICAL PROGRAMMER Impressions 02/02/2025 10:34 AM SENIOR STATISTICAL PROGRAMMER IMPRESSION: Mild degenerative arthrosis of both SI joints. Lower lumbar facet arthropathy and degenerative interspace narrowing. Diffuse osseous demineralization. No definite fracture. Narrative 02/02/2025 10:34 AM SENIOR STATISTICAL PROGRAMMER EXAM: XR SACRUM AND COCCYX 2 VIEWS LOCATION: [facility] DATE: 02/02/2025 INDICATION: Pain, recent fall COMPARISON: 01/29/2025 Procedure Note Pepito Belle DO - 02/02/2025 EXAM: XR SACRUM AND COCCYX 2 VIEWS LOCATION: [facility] DATE: 02/02/2025 INDICATION: Pain, recent fall COMPARISON: 01/29/2025 IMPRESSION: Mild degenerative arthrosis of both SI joints. Lower lumbarfacet arthropathy and degenerative interspace narrowing. Diffuse osseous demineralization. No definite fracture. Authorizing ProviderResult TypeResult StatusBogdan KASPER DIAGNOSTIC IMAGING ORDERABLESFinal Result * (ABNORMAL) iStat Basic Chem ICA Hematocrit, POCT (02/02/2025 8:55 AM SENIOR STATISTICAL PROGRAMMER) ComponentValueRef RangeTest MethodAnalysis TimePerformed AtPathologist SignatureChloride VCAO44061-678 mmol/L mmol/L104/04/2024 8:58 AM [facility] POCPotassium POCT4.23.4 - 5.3 mmol/L104/04/2024 8:58 AM [facility] POCSodium TUIS079599 - 145 mmol/L104/04/2024 8:58 AM [facility] POCUREA NITROGEN UUFS276 - 23 mg/dL02/02/2025 8:58 AM [facility] POCCalcium, Ionized Whole Blood POCT5.04.4 - 5.2 mg/dL02/02/2025 8:58 AM [facility] POCGlucose Whole Blood UCMT5965 - 99 mg/dL02/02/2025 8:58 AM [facility] POCAnion Gap POCT14.07.0-15.0 mmol/L mmol/L104/04/2024 8:58 AM [facility] POCHemoglobin POCT10.5(L)11.7 - 15.7 g/dL02/02/2025 8:58 AM [facility] POCHematocrit POCT31(L)35-47 % %02/02/2025 8:58 AM [facility] POCCreatinine POCT0.80.5 - 1.0 mg/dL02/02/2025 8:58 AM [facility] POCTOTAL CO2 IJOO93wmbk/L104/04/2024 8:58 AM [facility] POC Specimen (Source)Anatomical Location / LateralityCollection Method / Volume Collection TimeReceived TimeBlood, venousBLOOD SPECIMEN / Ckcsszp4602/02/2025 8:55 AM CST02/02/2025 8:58 AM SENIOR STATISTICAL PROGRAMMER Narrative Authorizing ProviderResult TypeResult StatusBogdan KELLER POCTFinal ResultPerforming OrganizationAddressCity/State/ZIP CodePhone Number [facility] Acute Care Lab [address] [facility] Lab (1st floor, no room number) [place] [address], [facility] * CTA Head Neck with Contrast (02/02/2025 8:48 AM SENIOR STATISTICAL PROGRAMMER)Anatomical Region LateralityModalityHead, SUBRAD CT NEURO, SUBRAD CT NEURO, UMP CT NEURO, RAD CT Computed TomographySpecimen (Source)Anatomical Location / LateralityCollection Method / VolumeCollection TimeReceived Time02/02/2025 8:48 AM SENIOR STATISTICAL PROGRAMMER Impressions 02/02/2025 9:45 AM SENIOR STATISTICAL PROGRAMMER IMPRESSION: HEAD CT: 1. ??Less conspicuous degree of irregular hyperattenuation along the anterior falx, which could be dairy supplies sales representative of nonspecific dural thickening or a trace subdural hemorrhage. HEAD CTA: 1. ??No significant stenosis, aneurysm, or high flow vascular malformation identified. 2. ??Variant [place] anatomy as above. NECK CTA: 1. ??No hemodynamically significant stenosis in the neck vessels. 2. ??No evidence for dissection. Narrative 02/02/2025 9:45 AM SENIOR STATISTICAL PROGRAMMER EXAM: CT HEAD W/O CONTRAST, CTA HEAD NECK W CONTRAST LOCATION: [facility] DATE: 02/02/2025 INDICATION: Headache, recent fall [...] CONTRAST, CTA HEAD NECK W CONTRAST LOCATION: [facility] DATE: 02/02/2025 INDICATION: Headache, recent fall [...] hyperattenuation along theanterior falx, which could be dairy supplies sales representative of nonspecific duralthickening or a trace subdural hemorrhage. HEAD CTA: 1. No significant stenosis, aneurysm, or high flow vascular malformation identified. 2. Variant [place] anatomy as above. NECK CTA: 1. No hemodynamically significant stenosis in the neck vessels. 2. No evidence for dissection. Authorizing ProviderResult TypeResult StatusEdonesimo Deal [facility] CT ORDERABLESFinal Result * Head CT w/o contrast (02/02/2025 8:48 AM SENIOR STATISTICAL PROGRAMMER) Only the most recent of3 resultswithin the time period is included. Anatomical RegionLateralityModalityHead, SUBRAD CT NEURO, SUBRAD CT NEURO, UMP CT NEURO, RAD CTComputed TomographySpecimen (Source)Anatomical Location / LateralityCollection Method / VolumeCollection TimeReceived Time02/02/2025 8:48 AM SENIOR STATISTICAL PROGRAMMER Impressions 02/02/2025 9:45 AM SENIOR STATISTICAL PROGRAMMER IMPRESSION: HEAD CT: 1. ??Less conspicuous degree of irregular hyperattenuation along the anterior falx, which could be dairy supplies sales representative of nonspecific dural thickening or a trace subdural hemorrhage. HEAD CTA: 1. ??No significant stenosis, aneurysm, or high flow vascular malformation identified. 2. ??Variant [place] anatomy as above. NECK CTA: 1. ??No hemodynamically significant stenosis in the neck vessels. 2. ??No evidence for dissection. Narrative 02/02/2025 9:45 AM SENIOR STATISTICAL PROGRAMMER EXAM: CT HEAD W/O CONTRAST, CTA HEAD NECK W CONTRAST LOCATION: [facility] DATE: 02/02/2025 INDICATION: Headache, recent fall [...] CONTRAST, CTA HEAD NECK W CONTRAST LOCATION: [facility] DATE: 02/02/2025 INDICATION: Headache, recent fall [...] hyperattenuation along theanterior falx, which could be dairy supplies sales representative of nonspecific duralthickening or a trace subdural hemorrhage. HEAD CTA: 1. No significant stenosis, aneurysm, or high flow vascular malformation identified. 2. Variant [place] anatomy as above. NECK CTA: 1. No hemodynamically significant stenosis in the neck vessels. 2. No evidence for dissection. Authorizing ProviderResult TypeResult StatusEdonesimo Deal MDVAL[facility] [place] CT ORDERABLESFinal Result * Extra Purple Top Tube (02/02/2025 8:04 AM SENIOR STATISTICAL PROGRAMMER)ComponentValueRef RangeTest MethodAnalysis TimePerformed AtPathologist SignatureHold YrivknphHNJ18/09/2025 9:17 AM [facility] LABORATORYSpecimen (Source)Anatomical Location / Laterality Collection Method / VolumeCollection TimeReceived TimeBloodBLOOD SPECIMEN / UnknownVenipuncture / Sypmyup66/11/2024 8:04 AM CST02/02/2025 8:10 AM SENIOR STATISTICAL PROGRAMMER Narrative Authorizing ProviderResult TypeResult StatusBogdan Beach Toyin MATTHEWLAB - BLOOD ORDERABLESFinal ResultPerforming OrganizationAddressCity/State/ZIP CodePhone Number [facility] Care Lab [address] Lab (1st floor, no room number) [place] [address], [facility] * Extra Green Top (Casanova Heparin) Tube (02/02/2025 8:04 AM SENIOR STATISTICAL PROGRAMMER)ComponentValue Ref RangeTest MethodAnalysis TimePerformed AtPathologist SignatureHold XhtxxzvjIAI39/09/2025 9:17 AM [facility] LABORATORYSpecimen (Source)Anatomical Location / LateralityCollection Method / VolumeCollection TimeReceived Time BloodBLOOD SPECIMEN / UnknownVenipuncture / Iizxhai4902/02/2025 8:04 AM SENIOR STATISTICAL PROGRAMMER 02/02/2025 8:10 AM SENIOR STATISTICAL PROGRAMMER Narrative Authorizing ProviderResult TypeResult StatusBogdan Beach Toyin [facility] - BLOOD ORDERABLESFinal ResultPerforming OrganizationAddressCity/State/ZIP CodePhone Number [facility] Lab [address] Lab (1st floor, no room number) [place] [address], [facility] * Extra Red Top Tube (02/02/2025 8:04 AM SENIOR STATISTICAL PROGRAMMER)ComponentValueRef RangeTest Method Analysis TimePerformed AtPathologist SignatureHold LzoubvtgGYB83/09/2025 9:17 AM [facility] LABORATORYSpecimen (Source)Anatomical Location / LateralityCollection Method / VolumeCollection TimeReceived TimeBloodBLOOD SPECIMEN / Unknown Venipuncture / Prbhqza0502/02/2025 8:04 AM CST02/02/2025 8:10 AM SENIOR STATISTICAL PROGRAMMER Narrative Authorizing ProviderResult TypeResult StatusBogdan Beach Toyin [facility] - BLOOD ORDERABLESFinal ResultPerforming OrganizationAddressCity/State/ZIP CodePhone Number [facility] Lab [address] Lab (1st floor, no room number) [place] [address], [facility] * Extra Blue Top Tube (02/02/2025 8:04 AM SENIOR STATISTICAL PROGRAMMER)ComponentValueRef RangeTest Method Analysis TimePerformed AtPathologist SignatureHold CdmzcvdmXJQ83/09/2025 9:17 AM [facility] LABORATORYSpecimen (Source)Anatomical Location / LateralityCollection Method / VolumeCollection TimeReceived TimeBloodBLOOD SPECIMEN / Unknown Venipuncture / Dbdchjp1502/02/2025 8:04 AM CST02/02/2025 8:10 AM [facility] Narrative Authorizing ProviderResult TypeResult StatusEdonesimo Deal MDLAB - BLOOD ORDERABLESFinal ResultPerforming OrganizationAddressCity/State/ZIP CodePhone Number LABORATORY [facility] Acute Care Lab [address] [facility] Lab (1st floor, no room number) [place] [address], [facility] * (ABNORMAL) Basic Metabolic Panel (Limited Occurrences) (01/30/2025 5:21 AM SENIOR STATISTICAL PROGRAMMER) Only the most recent of2 resultswithin the time period is included. ComponentValueRef RangeTest MethodAnalysis TimePerformed AtPathologist Signature Zpynny447075 - 145 mmol/L104/01/2024 6:03 AM [facility] LABORATORYPotassium4.53.4 - 5.3 mmol/L104/01/2024 6:03 AM [facility] EIBAOUELGKQzxovxbx943(H)98 - 107 mmol/L 01/30/2025 6:03 AM [facility] LABORATORYCarbon Dioxide (CO2)2422 - 29 mmol/L 01/30/2025 6:03 AM [facility] LABORATORYAnion Gap87 - 15 mmol/L104/01/2024 6:03 AM [facility] LABORATORYUrea Tcgtgiub22.08.0 - 23.0 mg/dL01/30/2025 6:03 AM [facility] LABORATORYCreatinine0.760.51 - 0.95 mg/dL01/30/2025 6:03 AM [facility] LABORATORYGFR Smorglzi42>60 mL/min/1.44p08901/30/2025 6:03 AM [facility] LABORATORYComment:eGFR calculated using 2020 CKD-EPI equation.Bvdnoks72.28.8 - 10.4 mg/dL01/30/2025 6:03 AM [facility] SSSHHQQRRXKzggqmw0915 - 99 mg/dL01/30/2025 6:03 AM [facility] LABORATORYSpecimen (Source)Anatomical Location / LateralityCollection Method / VolumeCollection TimeReceived TimeBloodSTRUCTURE OF RIGHT UPPER LIMB / Unknown Venipuncture / Yqgizzp6801/30/2025 5:21 AM CST01/30/2025 5:29 AM SENIOR STATISTICAL PROGRAMMER Narrative Authorizing ProviderResult TypeResult StatusJoseph Juanpablo Stewart DOLAB - BLOOD ORDERABLESFinal ResultPerforming OrganizationAddressCity/State/ZIP CodePhone Number [facility] [address] Lab (1st floor, no room number) [place] [address] * (ABNORMAL) CBC with platelets (01/30/2025 5:21 AM SENIOR STATISTICAL PROGRAMMER)ComponentValueRef Range Test MethodAnalysis TimePerformed AtPathologist SignatureWBC Count6.144.00 - 11.00 10e3/uL01/30/2025 5:32 AM [facility] LABORATORYRBC Count3.73(L)3.80 - 5.20 10e6/uL01/30/2025 5:32 AM [facility] PFKMQYFXZLRhbxtfuonh74.011.7 - 15.7 g/dL 01/30/2025 5:32 AM [facility] AWPQTDIFLIZinklnbndp91.135.0 - 47.0 %01/30/2025 5:32 AM [facility] LGDUFPSQUFIWG13.878.0 - 100.0 fL01/30/2025 5:32 AM [facility] MCH32.226.5 - 33.0 pg01/30/2025 5:32 AM [facility] WQHJMDSJHNKFRY36.231.5 - 36.5 g/dL01/30/2025 5:32 AM [facility] HTYNKEBWZWMTY67.010.0 - 15.0 %01/30/2025 5:32 AM [facility] LABORATORYPlatelet Zmlgd295020 - 450 10e3/uL01/30/2025 5:32 AM [facility] LABORATORYSpecimen (Source)Anatomical Location / LateralityCollection Method / VolumeCollection TimeReceived TimeBloodSTRUCTURE OF RIGHT UPPER LIMB / Unknown Venipuncture / Veprybh4301/30/2025 5:21 AM CST01/30/2025 5:29 AM SENIOR STATISTICAL PROGRAMMER Narrative Authorizing ProviderResult TypeResult StatusJosevaughn Stewart DOLAB - BLOOD ORDERABLESFinal ResultPerforming OrganizationAddressCity/State/ZIP CodePhone Number [facility] [address] [facility] Lab (1st floor, no room number) [place] [address], [facility] * Lumbar spine XR, 2-3 views (01/29/2025 7:57 PM SENIOR STATISTICAL PROGRAMMER)Anatomical RegionLaterality ModalitySpine, T-spine, L-spine, Abdomen/PelvisDigital RadiographySpecimen (Source)Anatomical Location / LateralityCollection Method / VolumeCollection TimeReceived Time01/29/2025 7:57 PM SENIOR STATISTICAL PROGRAMMER Impressions 01/29/2025 9:48 PM SENIOR STATISTICAL PROGRAMMER IMPRESSION: 5 nonrib-bearing lumbar-type vertebral bodies. Again seen is approximately 1 cm leftward subluxation of L4 on L5, similar to prior. Subtle anterolisthesis of L3 on L4, similar to prior. Otherwise normal lumbar lordosis. Vertebral body heights are grossly preserved. Moderate to severe interspace narrowing is seen throughout the visualized thoracolumbar spine with relative sparing of L2-3. At least mild facet arthropathy L3-4 and more caudal levels. Visualized osseous pelvis is unremarkable. Surgical clips right upper quadrant compatible with prior cholecystectomy. Narrative 01/29/2025 9:48 PM SENIOR STATISTICAL PROGRAMMER EXAM: XR LUMBAR SPINE 2/3 VIEWS LOCATION: [facility] DATE: 01/29/2025 INDICATION: Fall, pain. COMPARISON: Plain films lumbar spine 08/29/2023. Procedure Note Marquise Graham MD - 01/29/2025 EXAM: XR LUMBAR SPINE 2/3 VIEWS LOCATION: [facility] DATE: 01/29/2025 INDICATION: Fall, pain. COMPARISON: Plain films lumbar spine 08/29/2023. IMPRESSION: 5 nonrib-bearing lumbar-type vertebral bodies. Again seen is approximately 1 cm leftward subluxation of L4 on L5, similar to prior.Subtle anterolisthesis of L3 on L4, similar to prior. Otherwise normallumbar lordosis. Vertebral body heights are grossly preserved. Moderate to severe interspace narrowing is seenthroughout the visualized thoracolumbar spine with relative sparing ofL2-3. At least mild facet arthropathy L3-4 and more caudal levels. Visualized osseous pelvis is unremarkable. Surgical clips right upperquadrant compatible with prior cholecystectomy. Authorizing ProviderResult TypeResult StatusTracy Kayla Munoz MDVAL[facility] [place] DIAGNOSTIC IMAGING ORDERABLESFinal Result * XR Hand Right G/E 3 Views (01/29/2025 7:56 PM SENIOR STATISTICAL PROGRAMMER)Anatomical RegionLaterality ModalityHand, WristRightDigital RadiographySpecimen (Source)Anatomical Location / LateralityCollection Method / VolumeCollection TimeReceived Time 01/29/2025 7:56 PM SENIOR STATISTICAL PROGRAMMER Impressions 01/29/2025 8:06 PM SENIOR STATISTICAL PROGRAMMER IMPRESSION: Negative for fracture or dislocation. 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 Mild osteoarthritic changes in the IP joints of the fingers. Soft tissues are unremarkable. Narrative 01/29/2025 8:06 PM SENIOR STATISTICAL PROGRAMMER EXAM: XR HAND RIGHT G/E 3 VIEWS LOCATION: [facility] DATE: 01/29/2025 INDICATION: Hand pain after a fall. COMPARISON: None. Procedure Note Kalin Macias MD - 01/29/2025 EXAM: XR HAND RIGHT G/E 3 VIEWS LOCATION: [facility] DATE: 01/29/2025 INDICATION: Hand pain after a fall. COMPARISON: None. IMPRESSION: Negative for fracture or dislocation. Advanced degenerativearthritis at the base of the thumb in the first CMC joint. Mildosteoarthritic changes in the IP joints of the fingers. Soft tissues areunremarkable. Authorizing ProviderResult TypeResult StatusTracy Kayla Munoz MDThad DIAGNOSTIC IMAGING ORDERABLESFinal Result * UA with Microscopic reflex to Culture (01/29/2025 7:34 PM SENIOR STATISTICAL PROGRAMMER)ComponentValue Ref RangeTest MethodAnalysis TimePerformed AtPathologist SignatureColor Urine StrawColorless, Straw, Light Yellow, Wejryc6801/29/2025 7:43 PM [facility] Appearance YxnadYhydzEtqvj33/05/2025 7:43 PM [facility] LABORATORYGlucose Urine NegativeNegative mg/dL01/29/2025 7:43 PM [facility] LABORATORYBilirubin Urine GcecmdwtXawscyey01/05/2025 7:43 PM [facility] LABORATORYKetones UrineNegative Negative mg/dL01/29/2025 7:43 PM [facility] LABORATORYSpecific [place] Urine1.009 1.003 - 1.8128701/29/2025 7:43 PM [facility] LABORATORYBlood UrineNegativeNegative 01/29/2025 7:43 PM [facility] LABORATORYpH Urine6.55.0 - 7.011 7:43 PM SENIOR STATISTICAL PROGRAMMER LABORATORYProtein Albumin UrineNegativeNegative mg/dL01/29/2025 7:43 PM SENIOR STATISTICAL PROGRAMMER LABORATORYUrobilinogen UrineNormalNormal mg/dL01/29/2025 7:43 PM [facility] LABORATORYNitrite WqbugLqybkvdpIsitqybk80/05/2025 7:43 PM [facility] Leukocyte Esterase NtdtjKzbmywrwQscjsuxg48/05/2025 7:43 PM [facility] LABORATORYRBC Urine0<=2 /HPF01/29/2025 7:43 PM [facility] LABORATORYWBC Urine1<=5 /HPF01/29/2025 7:43 PM [facility] LABORATORYSquamous Epithelials Urine<1<=1 /HPF01/29/2025 7:43 PM [facility] LABORATORYSpecimen (Source)Anatomical Location / LateralityCollection Method / VolumeCollection TimeReceived TimeUrineMID-STREAM URINE SPECIMEN / UnknownNon-blood Collection / Rzxmrhp7701/29/2025 7:34 PM CST01/29/2025 7:38 PM SENIOR STATISTICAL PROGRAMMER Narrative LABORATORY - 01/29/2025 7:43 PM SENIOR STATISTICAL PROGRAMMER Urine Culture not indicated Authorizing ProviderResult TypeResult StatusTracy Kayla Munoz MDLAB - URINE ORDERABLESFinal ResultPerforming OrganizationAddressCity/State/ZIP CodePhone Number [facility] Acute Care Lab [address] [facility] Lab (1st floor, no room number) [place] [address], [facility] * CBC with platelets and differential (01/29/2025 6:30 PM SENIOR STATISTICAL PROGRAMMER)ComponentValueRef RangeTest MethodAnalysis TimePerformed AtPathologist SignatureWBC Count6.22 4.00 - 11.00 10e3/uL01/29/2025 6:40 PM [facility] LABORATORYRBC Count3.913.80 - 5.20 10e6/uL01/29/2025 6:40 PM [facility] LORGZWDPDWXseisfqpmz66.511.7 - 15.7 g/dL 01/29/2025 6:40 PM [facility] VDWWWJKRXYNopkovjqma44.935.0 - 47.0 %01/29/2025 6:40 PM [facility] IHFXDHNOTBRAV11.978.0 - 100.0 fL01/29/2025 6:40 PM [facility] MCH32.026.5 - 33.0 pg01/29/2025 6:40 PM [facility] LJXDLKEEXUJTND47.031.5 - 36.5 g/dL01/29/2025 6:40 PM [facility] TBBCXHSLYLYIT15.010.0 - 15.0 %01/29/2025 6:40 PM [facility] LABORATORYPlatelet Ppwfx132959 - 450 10e3/uL01/29/2025 6:40 PM [facility]% Xybzywmjmym57.4%01/29/2025 6:40 PM [facility]% Lymphocytes 27.3%01/29/2025 6:40 PM [facility]% Xksaewypz48.9%01/29/2025 6:40 PM [facility]% Eosinophils3.1%01/29/2025 6:40 PM [facility]% Basophils 0.8%01/29/2025 6:40 PM [facility]% Immature Granulocytes0.5%01/29/2025 6:40 PM [facility] LABORATORYNRBCs per 100 WBC0.0<1.0 /7687701/29/2025 6:40 PM [facility] LABORATORYAbsolute Neutrophils3.511.60 - 8.30 10e3/uL01/29/2025 6:40 PM [facility] LABORATORYAbsolute Lymphocytes1.700.80 - 5.30 10e3/uL01/29/2025 6:40 PM [facility] LABORATORYAbsolute Monocytes0.740.00 - 1.30 10e3/uL01/29/2025 6:40 PM [facility] LABORATORYAbsolute Eosinophils0.190.00 - 0.70 10e3/uL01/29/2025 6:40 PM [facility] LABORATORYAbsolute Basophils0.050.00 - 0.20 10e3/uL01/29/2025 6:40 PM [facility] LABORATORYAbsolute Immature Granulocytes0.03<=0.40 10e3/uL01/29/2025 6:40 PM [facility] LABORATORYAbsolute NRBCs<0.0310e3/uL01/29/2025 6:40 PM [facility] Specimen (Source)Anatomical Location / LateralityCollection Method / Volume Collection TimeReceived TimeBloodSTRUCTURE OF RIGHT UPPER LIMB / Unknown Venipuncture / Lsabfir2601/29/2025 6:30 PM CST01/29/2025 6:38 PM SENIOR STATISTICAL PROGRAMMER Narrative Authorizing ProviderResult TypeResult StatusTraanne marie Munoz MDLAB - BLOOD ORDERABLESFinal ResultPerforming OrganizationAddressCity/State/ZIP CodePhone Number LABORATORY [facility] Acute Care Lab [address] [facility] Lab (1st floor, no room number) [place] [address] * EKG 12-lead, tracing only (01/29/2025 6:01 PM SENIOR STATISTICAL PROGRAMMER)ComponentValueRef RangeTest MethodAnalysis TimePerformed AtPathologist SignatureSystolic Blood Pressure mmHgRADIOLOGY RESULTSDiastolic Blood PressuremmHgRADIOLOGY RESULTSVentricular Igqz63DSAQENOKRVQL RESULTSAtrial Ajof64SRFIYFBYZLRO RESULTSPR Omkaqefx428ei RADIOLOGY RESULTSQRS Cwfggrkf69njKGSXWSJIL XCDJAJEFP566olGRURSADBP RESULTSQTc 402msRADIOLOGY RESULTSP Kohq35rwsahqlAXYRWKGJR RESULTSR OMQG36hvclfkvBLQTFKLZL RESULTST Reho68sqyecrqBFAMYDUGI RESULTSInterpretation ECGSinus rhythm Normal ECG When compared with ECG of 15-Sep-2022 12:06, No significant change was found Unconfirmed report - interpretation of this ECG is computer generated - see medical record for final interpretation Confirmed by - EMERGENCY ROOM, PHYSICIAN ([id number]), state editor SEA GUNDERSON ([id number]) on 01/30/2025 7:17:23AM RADIOLOGY RESULTSSpecimen (Source)Anatomical Location / LateralityCollection Method / VolumeCollection TimeReceived Time01/29/2025 6:01 PM CST01/30/2025 7:17 AM SENIOR STATISTICAL PROGRAMMER Narrative Authorizing ProviderResult TypeResult StatusMelissa Munoz MDECG ORDERABLES Edited Result - FinalPerforming OrganizationAddressCity/State/ZIP CodePhone Number RADIOLOGY RESULTS * Vitamin D Deficiency (12/24/2024 11:04 AM CDT)ComponentValueRef RangeTest MethodAnalysis TimePerformed AtPathologist SignatureVitamin D, Total (25-Hydroxy)2920 - 50 ng/mL12/25/2024 2:55 AM CDTUU LABORATORYComment:optimum levelsSpecimen (Source)Anatomical Location / LateralityCollection Method / VolumeCollection TimeReceived TimeBloodBLOOD SPECIMEN / UnknownVenipuncture / Rwdaaye5512/24/2024 11:04 AM CDT12/24/2024 11:04 AM CDT Narrative LABORATORY - 12/25/2024 2:55 AM CDT Season, race, dietary intake, and treatment affect the concentration of 92-eupgnbg-Yyzxres D. Values may decrease during winter months and increase during summer months. Vitamin D determination is routinely performed by an immunoassay specific for 25 hydroxyvitamin D3.??If an individual is on vitamin D2(ergocalciferol) supplementation, please specify 25 [place] vitamin D2 and D3 level determination by LCMSMS test VITD23. Authorizing ProviderResult TypeResult StatusCayla LOCKWOOD - BLOOD ORDERABLESFinal ResultPerforming OrganizationAddressCity/State/ZIP CodePhone Number LABORATORY [facility] Lab [address] [facility], [address] * (ABNORMAL) TSH with free T4 reflex (12/24/2024 11:04 AM CDT)ComponentValueRef RangeTest MethodAnalysis TimePerformed AtPathologist KeabujdmxVDN38.10(H)0.30 - 4.20 uIU/mL12/25/2024 2:55 AM CDTUU LABORATORYSpecimen (Source)Anatomical Location / LateralityCollection Method / VolumeCollection TimeReceived Time BloodBLOOD SPECIMEN / UnknownVenipuncture / Lzjyenb9012/24/2024 11:04 AM CDT 12/24/2024 11:04 AM CDT Narrative Authorizing ProviderResult TypeResult StatusSaskia NEWSOME - BLOOD ORDERABLESFinal ResultPerforming OrganizationAddressCity/State/ZIP CodePhone Number LABORATORY [facility] Core Lab [address] [facility], [address] * (ABNORMAL) Parathyroid Hormone Intact (12/24/2024 11:04 AM CDT)ComponentValue Ref RangeTest MethodAnalysis TimePerformed AtPathologist SignatureParathyroid Hormone Evukqx700(H)15 - 65 pg/mL12/25/2024 2:56 AM CDTUU LABORATORYSpecimen (Source)Anatomical Location / LateralityCollection Method / VolumeCollection TimeReceived TimeBloodBLOOD SPECIMEN / UnknownVenipuncture / Ccipofg1612/24/2024 11:04 AM CDT12/24/2024 11:04 AM CDT Narrative LABORATORY - 12/25/2024 2:56 AM CDT This result was obtained with the José Miguel [employer] PTH STAT assay. This reference range differs from PTH assays used in other [facility] laboratories. Authorizing ProviderResult TypeResult StatusCayla WALLERCLAB - BLOOD ORDERABLESFinal ResultPerforming OrganizationAddressCity/State/ZIP CodePhone Number [facility] Core Lab [address] [facility], Room [address] * (ABNORMAL) Ionized Calcium (12/24/2024 11:04 AM CDT)ComponentValueRef Range Test MethodAnalysis TimePerformed AtPathologist SignatureCalcium Ionized Whole Blood5.4(H)4.4 - 5.2 mg/dL12/24/2024 8:26 PM CDTUU LABORATORYSpecimen (Source) Anatomical Location / LateralityCollection Method / VolumeCollection Time Received TimeBloodBLOOD SPECIMEN / UnknownVenipuncture / Ocpvcas1012/24/2024 11:04 AM CDT12/24/2024 11:04 AM CDT Narrative Authorizing ProviderResult TypeResult StatusCayla Leavitt [facility] - BLOOD ORDERABLESFinal ResultPerforming OrganizationAddressCity/State/ZIP CodePhone Number [facility] Core Lab [address] [facility], [address] [id number] * (ABNORMAL) Basic metabolic panel (Ca, Cl, CO2, Creat, Gluc, K, Na, BUN) (12/24/2024 11:04 AM CDT)ComponentValueRef RangeTest MethodAnalysis Time Performed AtPathologist KglebngwqHtwuuy096452 - 145 mmol/L1 2:55 AM CDTUU LABORATORYPotassium4.23.4 - 5.3 mmol/L1 2:55 AM CDTUU ZRYSDYTUBEMrcctvpa29673 - 107 mmol/L1 2:55 AM CDTUU LABORATORYCarbon Dioxide (CO2)2422 - 29 mmol/L1 2:55 AM CDTUU LABORATORYAnion Dvq263 - 15 mmol/L1 2:55 AM CDTUU LABORATORYUrea Jmdxgobd25.58.0 - 23.0 mg/dL 12/25/2024 2:55 AM CDTUU LABORATORYCreatinine0.840.51 - 0.95 mg/dL12/25/2024 2:55 AM CDTUU LABORATORYGFR Sfredthh89>60 mL/min/1.19m77812/25/2024 2:55 AM CDT UU LABORATORYComment:eGFR calculated using 2020 CKD-EPI equation.Gcdtorg45.5 (H)8.8 - 10.4 mg/dL12/25/2024 2:55 AM CDTUU QQWKWHFULSLkwlycp6191 - 99 mg/dL 12/25/2024 2:55 AM CDTUU LABORATORYSpecimen (Source)Anatomical Location / LateralityCollection Method / VolumeCollection TimeReceived TimeBloodBLOOD SPECIMEN / UnknownVenipuncture / Nlpsxvz4112/24/2024 11:04 AM CDT12/24/2024 11:04 AM CDT Narrative Authorizing ProviderResult TypeResult StatusSasissy WALLER-CLAB - BLOOD ORDERABLESFinal ResultPerforming OrganizationAddressCity/State/ZIP CodePhone Number LABORATORY [facility] Core Lab [address] [facility], [address] [address] * Stool: occult blood (05/22/2024 10:21 AM SENIOR STATISTICAL PROGRAMMER)ComponentValueRef RangeTest MethodAnalysis TimePerformed AtPathologist SignatureOccult BloodNegative Negative CUCO 05/22/2024 10:37 AM CST LABORATORYSpecimen (Source)Anatomical Location / LateralityCollection Method / VolumeCollection TimeReceived TimeStoolRECTAL CONTENTS / UnknownNon-blood Collection / Cxnummg7705/22/2024 10:21 AM SENIOR STATISTICAL PROGRAMMER 05/22/2024 10:35 AM SENIOR STATISTICAL PROGRAMMER Narrative Authorizing ProviderResult TypeResult StatusKristofer Michel MDLAB - STOOLS ORDERABLESFinal ResultPerforming OrganizationAddressCity/State/ZIP CodePhone Number [facility] Care Lab [address] [facility] Lab (1st floor, no room number) [place] [address], [facility] * (ABNORMAL) Comprehensive metabolic panel (05/22/2024 10:01 AM [facility])Component ValueRef RangeTest MethodAnalysis TimePerformed AtPathologist SignatureSodium 846550 - 145 mmol/L05/22/2024 11:15 AM [facility] LABORATORYPotassium4.23.4 - 5.3 mmol/L05/22/2024 11:15 AM [facility] LABORATORYCarbon Dioxide (CO2)21(L)22 - 29 mmol/L05/22/2024 11:15 AM [facility] LABORATORYAnion Xcy133 - 15 mmol/L05/22/2024 11:15 AM [facility] LABORATORYUrea Fvmvjisb12.78.0 - 23.0 mg/dL05/22/2024 11:15 AM [facility] LABORATORYCreatinine0.880.51 - 0.95 mg/dL05/22/2024 11:15 AM [facility] LABORATORYGFR Gamujhya70>60 mL/min/1.90j95405/22/2024 11:15 AM [facility] LABORATORY Comment:eGFR calculated using 2020 CKD-EPI equation.Calcium9.98.8 - 10.4 mg/dL 05/22/2024 11:15 AM [facility] UHXIDGLJILVamphsgu55788 - 107 mmol/L05/22/2024 11:15 AM [facility] HWDUTKFZFVNafwnqt2054 - 99 mg/dL05/22/2024 11:15 AM [facility] LABORATORY Alkaline Tcbnyseuoaa87047 - 150 U/L05/22/2024 11:15 AM [facility] SGRRRRULYIFWQ701 - 45 U/L05/22/2024 11:15 AM [facility] LABORATORYComment:Specimen is hemolyzed which can falsely elevate AST. Analysis of a non-hemolyzed specimen may result in a lower value.TZZ358 - 50 U/L05/22/2024 11:15 AM [facility] LABORATORYProtein Total6.3(L)6.4 - 8.3 g/dL05/22/2024 11:15 AM [facility] LABORATORYAlbumin3.83.5 - 5.2 g/dL05/22/2024 11:15 AM [facility] LABORATORYBilirubin Total0.2<=1.2 mg/dL 05/22/2024 11:15 AM [facility] LABORATORYSpecimen (Source)Anatomical Location / LateralityCollection Method / VolumeCollection TimeReceived TimeBloodBLOOD SPECIMEN / UnknownVenipuncture / Ozxubrk8205/22/2024 10:01 AM CST05/22/2024 10:06 AM SENIOR STATISTICAL PROGRAMMER Narrative Authorizing ProviderResult TypeResult StatusKristofer Michel MDLAB - BLOOD ORDERABLESFinal ResultPerforming OrganizationAddressCity/State/ZIP CodePhone Number [facility] Lab [address] Lab (1st floor, no room number) [place] [address], [facility] * (ABNORMAL) Lipid panel reflex to direct LDL Non-fasting (03/15/2024 3:45 PM SENIOR STATISTICAL PROGRAMMER)ComponentValueRef RangeTest MethodAnalysis TimePerformed AtPathologist OsmomgbzuHxqqrpavaji479<200 mg/dL03/16/2024 1:56 AM CSTUU LABORATORY Adkoaxaqhxulw284<150 mg/dL03/16/2024 1:56 AM CSTUU LABORATORYDirect Measure HDL53>=50 mg/dL03/16/2024 1:56 AM CSTUU LABORATORYLDL Cholesterol Calculated 120(H)<100 mg/dL03/16/2024 1:56 AM CSTUU LABORATORYNon HDL Dwwpyikwewz077(H) <130 mg/dL03/16/2024 1:56 AM CSTUU LABORATORYPatient Fasting > 8hrs?No 03/16/2024 1:56 AM CSTUU LABORATORYSpecimen (Source)Anatomical Location / LateralityCollection Method / VolumeCollection TimeReceived TimeBloodBLOOD SPECIMEN / UnknownVenipuncture / Oksrhsy3303/15/2024 3:45 PM CST03/15/2024 3:45 PM SENIOR STATISTICAL PROGRAMMER Narrative UU LABORATORY - 03/16/2024 1:56 AM SENIOR STATISTICAL PROGRAMMER Cholesterol Desirable: < 200 mg/dL Borderline High: 200 - 239 mg/dL High: >= 240 mg/dL Triglycerides Normal: < 150 mg/dL Borderline High: 150 - 199 mg/dL High: 200-499 mg/dL Very High: >= 500 mg/dL Direct Measure HDL Female: >= 50 mg/dL Male: >= 40 mg/dL LDL Cholesterol Desirable: < 100 mg/dL Above Desirable: 100 - 129 mg/dL Borderline High: 130 - 159 mg/dL High: ??160 - 189 mg/dL Very High: >= 190 mg/dL Non HDL Cholesterol Desirable: < 130 mg/dL Above Desirable: 130 - 159 mg/dL Borderline High: 160 - 189 mg/dL High: 190 - 219 mg/dL Very High: >= 220 mg/dL Authorizing ProviderResult TypeResult StatusJulienne Pena MDLAB - BLOOD ORDERABLES Final ResultPerforming OrganizationAddressCity/State/ZIP CodePhone Number UU LABORATORY [facility] Core Lab [address] [facility], Room [address] [place] [address] * MA Diagnostic Bilateral w/Giovanni (06/06/2023 8:36 AM CDT)Anatomical Region LateralityModalityBreastBilateralMammographySpecimen (Source)Anatomical Location / LateralityCollection Method / VolumeCollection TimeReceived Time Impressions 06/06/2023 10:10 AM CDT IMPRESSION: BI-RADS CATEGORY: 2 - Benign. No evidence of malignancy. Results were discussed with the patient during her appointment. As long as her physical examination remains stable, annual screening mammography would be recommended. RECOMMENDED FOLLOW-UP: Routine yearly mammography beginning at age 40 or as discussed with your provider. SHERICE ZIEGLER MD Narrative 06/06/2023 10:10 AM CDT MA DIAGNOSTIC BILATERAL W/ GIOVANNI, US BREAST RIGHT LIMITED 1-3 QUADRANTS - ??06/06/2023 10:08 AM HISTORY: ??Right breast pain. COMPARISON: ??01/15/2021, 05/22/2019 BREAST DENSITY: There are scattered areas of fibroglandular density. FINDINGS: ??Bilateral diagnostic views were obtained with tomosynthesis. The pattern of glandular tissue is stable bilaterally and there is no mammographic abnormality in either breast to suggest malignancy. Further evaluation with targeted right breast ultrasound shows benign intramammary lymph nodes and benign glandular tissue. There is no suspicious finding to suggest malignancy. Authorizing ProviderResult TypeResult StatusJa Michelle MDIMG MAMMOGRAPHY ORDERABLESFinal Result * Hepatitis C Screen Reflex to HCV RNA Quant and Genotype (12/30/2021 3:50 PM CDT)ComponentValueRef RangeTest MethodAnalysis TimePerformed AtPathologist SignatureHepatitis C DtgunmovVcfdlqiiyuvTqtwkcbkuxo60/07/2022 3:56 PM CDTUM SPECIALTY CORE/PROT/ENDOSpecimen (Source)Anatomical Location / Laterality Collection Method / VolumeCollection TimeReceived TimeBloodSTRUCTURE OF LEFT UPPER LIMB / UnknownVenipuncture / Yqipwdv2612/30/2021 3:50 PM CDT1 3:50 PM CDT Narrative [facility] CORE/PROT/ENDO - 12/31/2021 3:56 PM CDT Assay performance characteristics have not been established for newborns, infants, and children. Authorizing ProviderResult TypeResult StatusMichaeelmo [place]OCK[place] - BLOOD ORDERABLESFinal ResultPerforming OrganizationAddressCity/State/ZIP CodePhone Number [facility]/PROT/ENDO [facility]/Prot/Endo [address] [facility], Room [address] [phone] * DX Hip/Pelvis/Spine w Lat Fraction Breann (10/22/2021 2:25 PM CDT)Anatomical RegionLateralityModalityDexaBone Mineral DensitySpecimen (Source)Anatomical Location / LateralityCollection Method / VolumeCollection TimeReceived Time 10/22/2021 1:41 PM CDT Impressions 10/23/2021 6:27 AM CDT IMPRESSION: OSTEOPOROSIS. T score meets the World Health Organization (WHO) criteria for osteoporosis at one or more measured sites. The risk of osteoporotic fracture increased approximately two-fold for each SD decrease in T-score. Narrative 10/23/2021 6:27 AM CDT EXAM: DX HIP/PELVIS/SPINE W LAT FRACTION ANALYSIS LOCATION: [facility] DATE/TIME: 10/22/2021 1:41 PM INDICATION: Osteopenia of multiple sites. COMPARISON: None. TECHNIQUE: Dual-energy x-ray absorptiometry performed with routine technique. FINDINGS: Lumbar Spine: L1-L4: BMD: 1.167 g/cm2. T-score: -0.2. Z-score: 1.5 RIGHT Hip Total: BMD: 0.777 g/cm2. T-score: -1.8. Z-score: -0.3 RIGHT Hip Femoral neck: BMD: 0.718 g/cm2. T-score: -2.9. Z-score: -1.1 LEFT Hip Total: BMD: 0.745 g/cm2. T-score: -2.1. Z-score: -0.5 LEFT Hip Femoral neck: BMD: 0.636 g/cm2. T-score: -2.9. Z-score: -1.1 WHO Criteria: Normal: T score at or above -1 SD Osteopenia: T score between -1 and -2.5 SD Osteoporosis: T score at or below -2.5 SD FRAX Results: Not applicable due to Osteoporosis. Procedure Note Jules Duvall MD - 10/23/2021 EXAM: DX HIP/PELVIS/SPINE W LAT FRACTION ANALYSIS LOCATION: [facility] DATE/TIME: 10/22/2021 1:41 PM INDICATION: Osteopenia of multiple sites. COMPARISON: None. TECHNIQUE: Dual-energy x-ray absorptiometry performed with routinetechnique. FINDINGS: Lumbar Spine: L1-L4: BMD: 1.167 g/cm2. T-score: -0.2. Z-score: 1.5 RIGHT Hip Total: BMD: 0.777 g/cm2. T-score: -1.8. Z-score: -0.3 RIGHT Hip Femoral neck: BMD: 0.718 g/cm2. T-score: -2.9. Z-score: -1.1 LEFT Hip Total: BMD: 0.745 g/cm2. T-score: -2.1. Z-score: -0.5 LEFT Hip Femoral neck: BMD: 0.636 g/cm2. T-score: -2.9. Z-score: -1.1 WHO Criteria: Normal: T score at or above -1 SD Osteopenia: T score between -1 and -2.5 SD Osteoporosis: T score at or below -2.5 SD FRAX Results: Not applicable due to Osteoporosis. IMPRESSION: OSTEOPOROSIS. T score meets the World Health Organization(WHO) criteria for osteoporosis at one or more measured sites. The risk ofosteoporotic fracture increased approximately two-fold for each SDdecrease in T-score. Authorizing ProviderResult TypeResult StatusMarlo W[place] Mills Dworsky ORNAMENT STITCHER CNPVALIR [facility] [place] DEXA ORDERABLESFinal Result * Colonoscopy - HIM Scan (08/28/2019) Narrative Julieth Soriano - 08/28/2019 RESULTS FOUND IN CARE EVERYWHERE [facility] Authorizing ProviderResult TypeResult StatusProvider OutsidePROCEDURESFinal Result * CT Chest Pulmonary Embolism w Contrast (08/13/2015 4:01 PM CDT)Anatomical RegionLateralityModalityChest, SUBRAD CT BODY, UMP CT CHESTComputed Tomography Specimen (Source)Anatomical Location / LateralityCollection Method / Volume Collection TimeReceived Time Impressions 08/13/2015 4:25 PM CDT IMPRESSION: No CT evidence of pulmonary embolism. SAGAR MCGARRY MD Narrative 08/13/2015 4:[address] CHEST PULMONARY EMBOLISM WITH CONTRAST 08/13/2015 4:01 PM HISTORY: Chest pain, elevated D-dimer. CONTRAST DOSE: ??85mL Isovue-370 Radiation dose for this scan was reduced using automated exposure control, adjustment of the mA and/or kV according to patient size, or iterative reconstruction technique. FINDINGS: ??There is a good contrast bolus within the pulmonary arteries. No pulmonary arterial filling defects are demonstrated to indicate pulmonary embolism. There is no evidence of aortic dissection. The mediastinum and maggy appear within normal limits. Linear atelectasis or fibrosis is noted at the left lung base. The lungs are otherwise grossly clear. No pleural effusion or pneumothorax. Procedure Note Carolina Mcgaryr MD - 08/13/2015 CT CHEST PULMONARY EMBOLISM WITH CONTRAST 08/13/2015 4:01 PM HISTORY: Chest pain, elevated D-dimer. CONTRAST DOSE: 85mL Isovue-370 Radiation dose for this scan was reduced using automated exposure control, adjustment of the mA and/or kV according to patient size, or iterative reconstruction technique. FINDINGS: There is a good contrast bolus within the pulmonary arteries. No pulmonary arterial filling defects are demonstrated to indicate pulmonary embolism. There is no evidence of aortic dissection. The mediastinum and maggy appear within normal limits. Linear atelectasis or fibrosis is noted at the left lung base. The lungs are otherwise grossly clear. No pleural effusion or pneumothorax. IMPRESSION: No CT evidence of pulmonary embolism. SAGAR MCGARRY MD Authorizing ProviderResult TypeResult StatusIzabela Marcus MDVALIR REHABILIT[facility] [place] CT ORDERABLESFinal Result from Last 3 Months or Most Recently Relevant to Health Maintenance Additional Health Concerns Active ProblemsNoted DateDiagnosed DateSDOH LACK OF STABLE HKLMWLT4603/30/2023MYC ECC DEP WELCOME- PROBLEM MPTMKKQJ52/27/2025MYC ECC DEP WELCOME- PROBLEM TEMPLATE 01/27/2025InfectionOnset DateLast IndicatedMRSA Comment:Added from external infection. Source: [facility] [employer]. 11/25/2016 Insurance * Guarantor: Arely Daniel TypeRelation to PatientDate of BirthPhone Billing AddressPersonal/AjlfnsRpvo72/24/1951 [phone] (Work) [address] [place] [address] * Guarantor: Arely Daniel TypeRelation to PatientDate of BirthPhone Billing AddressPersonal/SdlggcMniy33/24/1951 [facility] [address] [place] [address] * Guarantor: Arely Daniel TypeRelation to PatientDate of BirthPhone Billing AddressPersonal/IsabyiMnoq40/24/1951 [facility] [address] [place] [address] * Guarantor: JAYY/ [id number]/ ST IZABELA GONZALEZNAccount TypeRelation to PatientDate of BirthPhoneBilling AddressWorker's KbhfngyahoysKkrp86/24/1951 [address] [facility] [place] [address] * Guarantor: María Arely LILLYgab TypeRelation to PatientDate of BirthPhone Billing AddressMedication GgwnjzmHqmg17/24/1951 Clem[facility] on [facility] [address] [facility] [address] [place] [address] * Guarantor: Arely Daniel TypeRelation to PatientDate of BirthPhone Billing FtlqugsBwpnqgoybcDxmx49/24/1951 [facility] [address] [place] [address] Advance Directives For more information, please contact: [phone] TypeDate RecordedPatient RepresentativeExplanationAdvance Directives and Living Will08/06/2024POLST 5-2-1724Iuhgjns Directives and Living Will05/14/2021uperseded by 07-30-24 order; POLST 5-31-43Iyzkckc Directives and Living Will02/13/2019 3:21 PMPOLST 02/12/19 superseded by 05-12-21 POLST * Full Code (Latest Code Status on File) Date ActivatedDate GwpfallgbkjTnwjjfbr68/5/2025 10:44 PM01/30/2025 6:34 PMAll basic and advanced life-sustaining interventions are performed as appropriate QuestionAnswerCommentsCode status determined by:* Discussion with patient/ legal decision maker * Full Code Date ActivatedDate DgywkspltqqVglyjqbj22/30/2019 10:40 AM03/02/2019 11:51 AM QuestionAnswerCommentsCode status determined by:* Discussion with patient/legal decision maker * Full Code Date ActivatedDate IoxtystwyfbVzeugnjw00/29/2019 8:56 PM02/23/2019 10:40 AM QuestionAnswerCommentsCode status determined by:* Discussion with patient/legal decision maker * DNR/DNI Date ActivatedDate HlnepyubvphXksniqfl35/19/2019 12:10 PM02/22/2019 6:45 PM QuestionAnswerCommentsCode status determined by:* Discussion with patient/legal decision maker Care Teams Team MemberRelationshipSpecialtyStart DateEnd Date Saskia Lowe MD [address] [place] [address] PCP - GeneralInternal Medicine11/21/24 [facility] ([place])02/15/19 Merrick Olivas MD [address] [place] [address] MDCardiovascular Disease07/27/21 Merrick Olivas MD [address] [place] [address] MDCardiovascular Disease07/27/21 Lorna Hurt PA-C [address] [place] [address] Physician AssistantUrology08/18/21 Rebekah Lowery, [facility] [address] [address] PharmacistPharmacist10/13/21 Cayla Kumar LSW [employer] [employer] [address] [facility] [address] [place] [address] Lead Care CoordinatorPrimary Care - CC04/27/23 Cayla Leavitt PA-C [address] [place] [address] Physician AssistantEndocrinology, Diabetes, and Ndhdzabnci96/24/24 Brenda Duval DO [address] [place] [address] PhysicianNeurology1/10/18 Brenda Duval DO [address] [place] [address] Assigned Neuroscience Provider08/16/24 Brooks Kang, PhD LP [address] [place] [phone] Assigned Behavioral Health Provider11/16/24 Cayla Leavitt PA-C [address] [place] [address] Assigned Endocrinology Provider10/16/24 Saskia Lowe MD [address] [place] [address] Assigned PCP01/23/25
--- OUTSIDE RECORDS SUMMARY | 2025-03-19 17:14 | XMS_ITS | Encounter Summary ---
Author Organization [place] Address [address] [address] Care Team Providers Care Telephone Directory Distributor Driver Name Role Phone [facility] Unavailable Merrick Olivas MD Unavailable Merrick Olivas MD Unavailable Lorna Hurt PA-C Unavailable Rebekah Lowery [facility] Unavailable Cayla Kumar HEAT TREATER HEAD Unavailable Cayla Leavitt PA-C Unavailable Brenda Duval DO Unavailable [phone] Brenda Duval DO Unavailable [phone] Brooks Kang PhD Unavailable Cayla Leavitt PA-C Unavailable Saskia Lowe MD Primary Care Provider [phone] Saskia Lowe MD Unavailable Reason for Visit * ReasonOnset SdcdLcartksjGzgnu07/12/2025JB Mark [id number] - [facility] 01/09/2025 to 03/09/2025 Encounter Details DateTypeDepartmentCare Team (Latest Contact Info)Uqxitonqcqi84/12/2025Telephone [facility] [address] [place] [phone] Saskia Lowe MD [address] [place] [address] Forms (SAMANTHA Flores [id number] - [facility] 01/09/2025 to 03/09/2025) Social History Tobacco UseTypesPacks/DayYears UsedDateSmoking Tobacco: FormerCigarettes Smokeless Tobacco: Never Comments:Very small amount - 2 years. Infrequent Alcohol UseStandard Drinks/WeekCommentsNo0 (1 standard drink = 0.6 oz pure alcohol)B1300 Health LiteracyAnswerDate RecordedHow often do you need to have someone help you when you read instructions, pamphlets, or other written material from your doctor or pharmacy?Misdldiwh49/13/2025UDIT-CAnswerDate RecordedQ1: How often do you have a drink containing alcohol?Never01/06/2025Q2: How many drinks containing alcohol do you have on a typical day when you are drinking?Patient does not drink01/06/2025Q3: How often do you have six or more drinks on one occasion?Never01/06/2025PHQ-2AnswerDate RecordedPHQ-2 Score3 01/31/2025[facility] [place] of Occupational Health - Occupational Stress QuestionnaireAnswerDate RecordedDo you feel stress - tense, restless, nervous, or anxious, or unable to sleep at night because yourmind is troubled all the time - these days?To some bdrlqn6001/06/2025Exercise Vital SignAnswerDate Recorded On average, how many days per week do you engage in moderate to strenuous exercise (like a brisk walk)?3 days01/06/2025On average, how many minutes do you engage in exercise at this level?10 min01/06/2025dolescent EducationAnswerDate RecordedGetting School Help NeededNot on file12/17/2022Social ConnectionsAnswer Date RecordedHow often do you feel lonely or isolated from those around you? Often10/13/2025Food InsecurityAnswerDate RecordedWithin the past 12 months, did [...] in an abandoned building, in an overnight halfway, or couch-surfing.)Yes01/31/2025re you worried about losing your [...] InformationValueDate RecordedSex Assigned at BirthNot on fileLegal PmiKiidls11/04/2012 3:21 AM CSTGender IdentityNot on file Sexual OrientationNot on filedocumented as of this encounter Miscellaneous Notes * Telephone Encounter - Tianna Hernández - 03/11/2025 8:27 AM CST Paperwork signed and faxed. RUNNER * Telephone Encounter - Rebekah Hinds - 03/07/2025 2:10 PM CST Forms/Letter Request Type of form/letter: Home Health Certification Do we have the form/letter: Yes: placed in covering provider mailbox Who is the form from? Home care Where did/will the form come from? form was faxed in When is form/letter needed by: 5-7 How would you like the form/letter returned: Patient Notified form requests are processed in 5-7 business days:Yes Okay to leave a detailed message?: NA RUNNER documented in this encounter Plan of Treatment DateTypeDepartmentCare Team (Latest Contact Info)Yucbufdgmxp01/12/2026 10:[address] [address] [facility] [address] [place] [address] Cayla Leavitt PA-C [address] [place] [address] documented as of this encounter Goals GoalPatient Goal TypeAssociated ProblemsRecent ProgressPatient-Stated?Author Establish Stable Housing Care PlanSDOH LACK OF STABLE [id number]%(04/28/2023 10:06 AM BANK RUNNER)Alessia Rutledge, GAIL Note: Barriers: I am unhappy where I am living. I have a cat. Strengths: I have a [facility]/ Elderly Waiver Fur Glosser Patient expressed understanding of goal: Yes Action steps to achieve this goal: 1. I will begin looking for a new place to live. Ssn/Ssbn Weapons Equipment Operator will assist me with connecting with Elderly Waiver Fur Glosser about this 2. I will find a [...] Active ProblemsNoted DateDiagnosed DateSDOH LACK OF STABLE GXBIWKB0803/30/2023MYC ECC DEP WELCOME- PROBLEM AHVBCFGJ25/27/2025MYC ECC DEP WELCOME- PROBLEM TEMPLATE 01/27/2025InfectionOnset DateLast IndicatedResolved 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 Source: [employer]. 11/25/2016AssessmentNoted TimePHQ-9 Depression Total Score: 12104/02/2024 12:17 PM CSTdocumented as of this encounter Care Teams Team MemberRelationshipSpecialtyStart DateEnd Date Saskia Lowe MD [address] [place] [address] PCP - GeneralInternal Medicine11/21/24 [facility] ([facility]), ([place])02/15/19 Merrick Olivas MD [address] [place] [address] MDCardiovascular Disease07/27/21 Merrick Olivas MD [address] [place] [address] MDCardiovascular Disease07/27/21 Lorna Hurt, KALLIC [address] [place] [address] Physician AssistantUrology08/18/21 Rebekah Lowery, [facility] [address] [address] PharmacistPharmacist10/13/21 Cayla Kumar, HEAT TREATER HEAD [facility] [employer] [address] [facility] [address] [place], [place] [address] Lead Care CoordinatorPrimary Care - CC2 Cayla Leavitt PA-C [address] [place], [place] [address] Physician AssistantEndocrinology, Diabetes, and Mqvuqxyulx82/24/24 Brenda Duval DO [address] [place] [address] PhysicianNeurology1/10/18 Brenda Duval DO [address] [place] [address] Assigned Neuroscience Provider08/16/24 Brooks Kang, PhD LP [address] [place] [phone] Assigned Behavioral Health Provider11/16/24 Cayla Leavitt PA-C [address] [place] [phone] Assigned Endocrinology Provider10/16/24 Saskia Lowe MD [address] [place], [place] [address] Assigned PCP01/23/25documented as of this encounter
--- OUTSIDE RECORDS SUMMARY | 2025-03-19 17:14 | XMS_ITS | Encounter Summary ---
Author Organization [place] Address [address] [place] [address] Care Team Providers Care Agricultural Engineering Technologist Name Role Phone [facility] Unavailable Merrick Olivas MD Unavailable Merrick Olivas MD Unavailable Lorna Hurt PA-C Unavailable Rebekah Lowery [facility] Unavailable Cayla Kumar FIBER DRIER OPERATOR Unavailable Cayla Leavitt PA-C Unavailable Brenda Duval DO Unavailable [phone] Brenda Duval DO Unavailable [phone] Brooks Kang PhD LP Unavailable [phone] Cayla Leavitt PA-C Unavailable Saskia Lowe MD Primary Care Provider [phone] Saskia Lowe MD Unavailable Encounter Details DateTypeDepartmentCare Team (Latest Contact Info)Axjtxbkuigt22/19/2025[facility] [address] [place] [address] Saskia Lowe MD [address] [place] [address] Social History Tobacco UseTypesPacks/DayYears UsedDateSmoking Tobacco: FormerCigarettes Smokeless Tobacco: Never Comments:Very small amount - 2 years. Infrequent Alcohol UseStandard Drinks/WeekCommentsNo0 (1 standard drink = 0.6 oz pure alcohol)B1300 Health LiteracyAnswerDate RecordedHow often do you need to have someone help you when you read instructions, pamphlets, or other written material from your doctor or pharmacy?Gipoyysmg43/13/2025UDIT-CAnswerDate RecordedQ1: How often do you have a drink containing alcohol?Never01/06/2025Q2: How many drinks containing alcohol do you have on a typical day when you are drinking?Patient does not drink01/06/2025Q3: How often do you have six or more drinks on one occasion?Never01/06/2025PHQ-2AnswerDate RecordedPHQ-2 Score3 01/31/2025[facility] [place] of Occupational Health - Occupational Stress QuestionnaireAnswerDate RecordedDo you feel stress - tense, restless, nervous, or anxious, or unable to sleep at night because yourmind is troubled all the time - these days?To some ztvwpg6401/06/2025Exercise Vital SignAnswerDate Recorded On average, how many [...] in an abandoned building, in an overnight senior care, or couch-surfing.)Yes01/31/2025re you worried about losing your [...] InformationValueDate RecordedSex Assigned at BirthNot on fileLegal AhkXszoyn64/04/2012 3:21 AM CSTGender IdentityNot on file Sexual OrientationNot on filedocumented as of this encounter Progress Notes * Saskia Lowe MD - 02/12/2025 3:05 PM CST Shawna Cayla, I saw Arely in office today. She discussed with me that she will be touring [facility] tomorrow. Since her fall, she has been having sacrococcygeal pain. Since patient missed her last appointment with [facility] pain clinic, I have discussed with her that we will need for her to follow-up with the pain clinic. An arrangement for the pain clinic appointment and rides will be appreciated. Thank you for your time on this. Saskia Lowe MD CLE TRIMMER * Saskia Lowe MD - 02/12/2025 3:05 PM CST Thank you for the feedback. Appreciate the help. CLE TRIMMER documented in this encounter Plan of Treatment DateTypeDepartmentCare Team (Latest Contact Info)Endpjfwhbry64/12/2026 10:00 AM CSTOffice Visit [facility] [address] [place] [address] Cayla Leavitt PA-C [address] [place] [address] documented as of this encounter Goals GoalPatient Goal TypeAssociated ProblemsRecent ProgressPatient-Stated?Author Establish Stable Housing Care PlanSDOH LACK OF STABLE [id number]%(04/28/2023 10:06 AM VEHICLE TRIMMER)Alessia Rutledge, GAIL Note: Barriers: I am unhappy where I am living. I have a cat. Strengths: I [facility] Elderly Waiver Assembly Mechanic Patient expressed understanding of goal: Yes Action steps to achieve this goal: 1. I will begin looking for a new place to live. Bowl Topper will assist me with connecting with Elderly Waiver Assembly Mechanic about this 2. I will find a [...] Active ProblemsNoted DateDiagnosed DateSDOH LACK OF STABLE CVVGNRG9503/30/2023MYC ECC DEP WELCOME- PROBLEM QZPVCQHY73/27/2025MYC ECC DEP WELCOME- PROBLEM TEMPLATE 01/27/2025InfectionOnset DateLast IndicatedResolved 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 Source: [employer]. 11/25/2016AssessmentNoted TimePHQ-9 Depression Total Score: 12104/02/2024 12:17 PM CSTdocumented as of this encounter Care Teams Team MemberRelationshipSpecialtyStart DateEnd Date Saskia Lowe MD [address] [place] [address] PCP - GeneralInternal Medicine11/21/24 [facility] ([facility] ([place])02/15/19 Merrick Olivas MD [address] [place] [address] MDCardiovascular Disease07/27/21 Merrick Olivas MD [address] [place] [address] MDCardiovascular Disease07/27/21 Lorna Hurt PA-C [address] [place], [place] [address] Physician AssistantUrology08/18/21 Rebekah Lowery, [facility] [address] [phone] PharmacistPharmacist10/13/21 Cayla Kumar LSW [facility] [address] [facility] [address] [place] [address] Lead Care CoordinatorPrimary Care - CC04/27/23 Cayla Leavitt PA-C [address] [place], [place] [address] Physician AssistantEndocrinology, Diabetes, and Fxlpstslxs73/24/24 Brenda Duval DO [address] [place], [place] [address] PhysicianNeurology1/10/18 Brenda Duval DO [address] [place], [place] [address] Assigned Neuroscience Provider08/16/24 Brooks Kang, PhD LP [address] [place] [address] Assigned Behavioral Health Provider11/16/24 Cayla Leavitt PA-C [address] [place] [address] Assigned Endocrinology Provider10/16/24 Saskia Lowe MD [address] [place], [place] [address] Assigned PCP01/23/25documented as of this encounter
--- OUTSIDE RECORDS SUMMARY | 2025-03-19 17:14 | XMS_ITS | Encounter Summary ---
Author Organization [place] Address [address] [address] Care Team Providers Care Circuit Court Judge Name Role Phone [facility] Unavailable Merrick Olivas MD Unavailable Merrick Olivas MD Unavailable Lorna Hurt PA-C Unavailable [phone] Rebekah Lowery [facility] Unavailable Cayla Kumar STRAW BALER Unavailable [phone] Cayla Leavitt PA-C Unavailable Brenda Duval DO Unavailable [phone] Brenda Duval DO Unavailable [phone] Brooks Kang PhD LP Unavailable Cayla Leavitt PA-C Unavailable Saskia Lowe MD Primary Care Provider [phone] Saskia Lowe MD Unavailable Reason for Visit * ReasonOnset DateCommentsForm Nqpoctd7003/13/2025JRuthie Mark * [id number] Encounter Details DateTypeDepartmentCare Team (Latest Contact Info)Kdgmmuugbmh88/18/2025[place] [address] [place] [address] Saskia Lowe MD [address] [place] [address] Form Request (SAMANTHA Flores * [id number]) Social History Tobacco UseTypesPacks/DayYears UsedDateSmoking Tobacco: FormerCigarettes Smokeless Tobacco: Never Comments:Very small amount - 2 years. Infrequent Alcohol UseStandard Drinks/WeekCommentsNo0 (1 standard drink = 0.6 oz pure alcohol)B1300 Health LiteracyAnswerDate RecordedHow often do you need to have someone help you when you read instructions, pamphlets, or other written material from your doctor or pharmacy?Fvvfppuml27/13/2025UDIT-CAnswerDate RecordedQ1: How often do you have a drink containing alcohol?Never01/06/2025Q2: How many drinks containing alcohol do you have on a typical day when you are drinking?Patient does not drink01/06/2025Q3: How often do you have six or more drinks on one occasion?Never01/06/2025PHQ-2AnswerDate RecordedPHQ-2 Score3 01/31/2025[facility] [place] of Occupational Health - Occupational Stress QuestionnaireAnswerDate RecordedDo you feel stress - tense, restless, nervous, or anxious, or unable to sleep at night because yourmind is troubled all the time - these days?To some hfnofv9301/06/2025Exercise Vital SignAnswerDate Recorded On average, how many [...] in an abandoned building, in an overnight fdc, or couch-surfing.)Yes01/31/2025re you worried about losing your [...] InformationValueDate RecordedSex Assigned at BirthNot on fileLegal QbkIbhsao95/04/2012 3:21 AM CSTGender IdentityNot on file Sexual OrientationNot on filedocumented as of this encounter Miscellaneous Notes * Telephone Encounter - Marisa Nolasco - 03/13/2025 10:41 AM CST SAMANTHA Flores * [id number] signed and faxed [employer] documented in this encounter Plan of Treatment DateTypeDepartmentCare Team (Latest Contact Info)Ftlfgilvetr59/12/2026 10:00 AM CSTOffice Visit [facility] [address] [place] [address] Cayla Leavitt PA-C [address] [place] [address] documented as of this encounter Goals GoalPatient Goal TypeAssociated ProblemsRecent ProgressPatient-Stated?Author Establish Stable Housing Care PlanSDOH LACK OF STABLE [id number]%(04/28/2023 10:06 AM ADV[employer]ED SEAL DELIVERY SYSTEM)Alessia Rutledge LSW Note: Barriers: I am unhappy where I am living. I have a cat. Strengths: I have a [facility]/ Elderly Waiver Syrup Mixer Patient expressed understanding of goal: Yes Action steps to achieve this goal: 1. I will begin looking for a new place to live. Uranium Processing Supervisor will assist me with connecting with Elderly Waiver Syrup Mixer about this 2. I will find a [...] Active ProblemsNoted DateDiagnosed DateSDOH LACK OF STABLE HGDUQSO4203/30/2023MY ECC DEP WELCOME- PROBLEM UATRMQFK68/27/2025MYC ECC DEP WELCOME- PROBLEM TEMPLATE 01/27/2025InfectionOnset DateLast IndicatedResolved 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 Source: [employer]. 11/25/2016AssessmentNoted TimePHQ-9 Depression Total Score: 12:17 PM CSTdocumented as of this encounter Care Teams Team MemberRelationshipSpecialtyStart DateEnd Date Saskia Lowe MD [address] [place] [address] PCP - GeneralInternal Medicine11/21/24 [facility] ([facility] ([place])02/15/19 Merrick Olivas MD [address] [place] [address] MDCardiovascular Disease07/27/21 Merrick Olivas MD [address] [place] [address] MDCardiovascular Disease07/27/21 Lorna Hurt PA-C [address] [place] [address] Physician AssistantUrology08/18/21 Rebekah Lowery [facility] [address] [address] PharmacistPharmacist10/13/21 Cayla Kumar [employer] [address] [place] [address] [address] [place] [address] Lead Care CoordinatorPratrium health harrisburgry Care - CC04/27/23 Cayla Leavitt PA-C [address] [place] [address] Physician AssistantEndocrinology, Diabetes, and Klpalvsogw37/24/24 Brenda Duval DO [address] [place] [phone] PhysicianNeurology1/10/18 Brenda Duval DO [address] [place] [phone] Assigned Neuroscience Provider08/16/24 Brooks Kang, PhD LP [address] [place] [phone] Assigned Behavioral Health Provider11/16/24 Cayla Leavitt PA-C [address] [place] [address] Assigned Endocrinology Provider10/16/24 Saskia Lowe MD [address] [place] [address] Assigned PCP01/23/25documented as of this encounter
--- OUTSIDE RECORDS SUMMARY | 2025-03-19 17:14 | XMS_ITS | Encounter Summary ---
Author Organization [place] Address [address] [facility] [place] [address] Care Team Providers Care Pharmacy Intern Name Role Phone [facility] Unavailable Merrick Olivas MD Unavailable Merrick Olivas MD Unavailable Lorna Hurt PA-C Unavailable [phone] Rebekah Lowery [facility] Unavailable Cayla Kumar ACCOUNTS RECEIVABLE EXECUTIVE Unavailable [phone] Cayla Leavitt PA-C Unavailable Brenda Duval DO Unavailable [phone] Brenda Duval DO Unavailable [phone] Brooks Kang PhD LP Unavailable Cayla Leavitt PA-C Unavailable Saskia Lowe MD Primary Care Provider [phone] Saskia Lowe MD Unavailable Reason for Visit * ReasonOnset DateCommentsMedication Xwjnaya2402/05/2025Tums Encounter Details DateTypeDepartmentCare Team (Latest Contact Info)Unayzhxdezb40/12/2025Te[address] [place] [address] Saskia Lowe MD [address] [place] [address] Medication Request (Tums ) Social History Tobacco UseTypesPacks/DayYears UsedDateSmoking Tobacco: FormerCigarettes Smokeless Tobacco: Never Comments:Very small amount - 2 years. Infrequent Alcohol UseStandard Drinks/WeekCommentsNo0 (1 standard drink = 0.6 oz pure alcohol)B1300 Health LiteracyAnswerDate RecordedHow often do you need to have someone help you when you read instructions, pamphlets, or other written material from your doctor or pharmacy?Ksoajxnpw61/13/2025UDIT-CAnswerDate RecordedQ1: How often do you have a drink containing alcohol?Never01/06/2025Q2: How many drinks containing alcohol do you have on a typical day when you are drinking?Patient does not drink01/06/2025Q3: How often do you have six or more drinks on one occasion?Never01/06/2025PHQ-2AnswerDate RecordedPHQ-2 Score3 01/31/2025[facility] [place] of Occupational Health - Occupational Stress QuestionnaireAnswerDate RecordedDo you feel stress - tense, restless, nervous, or anxious, or unable to sleep at night because yourmind is troubled all the time - these days?To some vpflvh8101/06/2025Exercise Vital SignAnswerDate Recorded On average, how many [...] in an abandoned building, in an overnight skilled nursing, or couch-surfing.)Yes01/31/2025re you worried about losing your [...] InformationValueDate RecordedSex Assigned at BirthNot on fileLegal ArlKsxqkj88/04/2012 3:21 AM CSTGender IdentityNot on file Sexual OrientationNot on filedocumented as of this encounter Miscellaneous Notes * Telephone Encounter - Arlyn Arauz RN - 02/06/2025 12:38 PM CST New TUMS order faxed to number below. GUARD * Telephone Encounter - Saskia Lowe MD - 02/06/2025 12:22 PM CST Rx changed to daily as needed. GUARD * Telephone Encounter - Marisa Nolasco - 02/05/2025 3:23 PM CST General Call Reason for Call: dosing change request What are your questions or concerns: Juanita Rn with blanca Sharma calls. Patient is asking for her Tums to be written as daily PRN. Patient stated that she thinks taking 1 daily is bad for your health which is how it is currently written Date of last appointment with provider: 02-05-2025 Okay to leave a detailed message?: fax order to Blnaca Sharma [phone] GUARD documented in this encounter Plan of Treatment DateTypeDepartmentCare Team (Latest Contact Info)Tovmeykqtiz06/12/2026 10:00 AM CSTOffice Visit [facility] [address] [facility] [address] [place] [address] Cayla Leavitt PA-C [address] [place] [address] documented as of this encounter Goals GoalPatient Goal TypeAssociated ProblemsRecent ProgressPatient-Stated?Author Establish Stable Housing Care PlanSDOH LACK OF STABLE [id number]%(04/28/2023 10:06 AM JAIL GUARD)Alessia Rutledge LSW Note: Barriers: I am unhappy where I am living. I have a cat. Strengths: I have a [facility]/ Elderly Waiver Plate Filler Patient expressed understanding of goal: Yes Action steps to achieve this goal: 1. I will begin looking for a new place to live. Sales Account Manager will assist me with connecting with Elderly Waiver Plate Filler about this 2. I will find a resource that an help me with moving my belongings. Care coordination will assist as needed. MYC ECC DEP WELCOME- GOAL TEMPLATE Care PlanMYC ECC DEP WELCOME- PROBLEM TEMPLATENoBackground, Analytics MYC ECC DEP WELCOME- GOAL TEMPLATE Care PlanMYC ECC DEP WELCOME- PROBLEM TEMPLATENoBackground, Analyticsdocumented as of this encounter Visit Diagnoses Diagnosis Gastroesophageal reflux disease without esophagitis Esophageal reflux documented in this encounter Additional Health Concerns Active ProblemsNoted DateDiagnosed DateSDOH LACK OF STABLE SKSYWVE8303/30/2023MYC ECC DEP WELCOME- PROBLEM MMRIUKFF59/27/2025MYC ECC DEP WELCOME- PROBLEM TEMPLATE 01/27/2025InfectionOnset DateLast IndicatedResolved 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 Source: [employer]. 11/25/2016AssessmentNoted TimePHQ-9 Depression Total Score: 12104/02/2024 12:17 PM CSTdocumented as of this encounter Care Teams Team MemberRelationshipSpecialtyStart DateEnd Date Saskia Lowe MD [address] [place], [place] [address] PCP - GeneralInternal Medicine11/21/24 [facility] ([facility]), ([place])02/15/19 Merrick Olivas MD [address] [place] [address] MDCardiovascular Disease07/27/21 Merrick Olivas MD [address] [place] [address] MDCardiovascular Disease07/27/21 Lorna Hurt PA-C [address] [place] [address] Physician AssistantUrology08/18/21 Rebekah Loewry, [facility] [address] [address] PharmacistPharmacist10/13/21 Cayla Kumar LSW [facility] [employer] [address] [facility] [address] [place] [address] Lead Care CoordinatorPrimary Care - CC04/27/23 Cayla Leavitt PA-C [address] [place], [place] [address] Physician AssistantEndocrinology, Diabetes, and Japuwpkwdj66/24/24 Brenda Duval DO [address] [place], [place] [address] PhysicianNeurolog04/02/24 Brenda Duval DO [address] [place], [place] [address] Assigned Neuroscience Provider08/16/24 Brooks Kang, PhD LP [address] [place] [phone] Assigned Behavioral Health Provider11/16/24 Cayla Leavitt PA-C [address] [place], [place] [address] Assigned Endocrinology Provider10/16/24 Saskia Lowe MD [address] [place] [address] Assigned PCP01/23/25documented as of this encounter
--- OUTSIDE RECORDS SUMMARY | 2025-03-19 17:14 | XMS_ITS | Encounter Summary ---
Author Organization [place] Address [address] [facility] [place] [address] Care Team Providers Care Chief Deputy Clerk/Bailiff Name Role Phone [facility] Unavailable [phone] Merrick Olivas MD Unavailable Merrick Olivas MD Unavailable Lorna Hurt PA-C Unavailable [phone] Rebekah Lowery [facility] Unavailable Cayla Kumar CAMPAIGN COORDINATOR Unavailable [phone] Cayla Leavitt PA-C Unavailable Brenda Duval DO Unavailable [phone] Brenda Duval DO Unavailable [phone] Brooks Kang PhD LP Unavailable Cayla Leavitt PA-C Unavailable Saskia Lowe MD Primary Care Provider [phone] Saskia Lowe MD Unavailable Encounter Details DateTypeDepartmentCare Team (Latest Contact Info)Jdjcjqdwdsc61/19/2025Travel Social History Tobacco UseTypesPacks/DayYears UsedDateSmoking Tobacco: FormerCigarettes Smokeless Tobacco: Never Comments:Very small amount - 2 years. Infrequent Alcohol UseStandard Drinks/WeekCommentsNo0 (1 standard drink = 0.6 oz pure alcohol)B1300 Health LiteracyAnswerDate RecordedHow often do you need to have someone help you when you read instructions, pamphlets, or other written material from your doctor or pharmacy?Cxjhbbsmi22/13/2025UDIT-CAnswerDate RecordedQ1: How often do you have a drink containing alcohol?Never01/06/2025Q2: How many drinks containing alcohol do you have on a typical day when you are drinking?Patient does not drink01/06/2025Q3: How often do you have six or more drinks on one occasion?Never01/06/2025PHQ-2AnswerDate RecordedPHQ-2 Score3 01/31/2025[facility] [place] [facility] Occup[facility] - Occupational Stress QuestionnaireAnswerDate RecordedDo you feel stress - tense, restless, nervous, or anxious, or unable to sleep at night because yourmind is troubled all the time - these days?To some poqfdk8001/06/2025Exercise Vital SignAnswerDate Recorded On average, how many [...] InformationValueDate RecordedSex Assigned at BirthNot on fileLegal IrnHaotjc17/04/2012 3:21 AM CSTGender IdentityNot on file Sexual OrientationNot on filedocumented as of this encounter Plan of Treatment DateTypeDepartmentCare Team (Latest Contact Info)Gkezrxwqypf72/12/2026 10:00 AM CSTOffice Visit [facility] [address] [facility] [address] [place] [address] Cayla Leavitt PA-C [address] [place] [address] documented as of this encounter Goals GoalPatient Goal TypeAssociated ProblemsRecent ProgressPatient-Stated?Author Establish Stable Housing Care PlanSDOH LACK OF STABLE [id number]%(04/28/2023 10:06 AM LINER MACHINE OPERATOR)Alessia Rutledge LSW Note: Barriers: I am unhappy where I am living. I have a cat. Strengths: I have a [employer]/ Elderly Waiver Telesales Representative Patient expressed understanding of goal: Yes Action steps to achieve this goal: 1. I will begin looking for a new place to live. Local Bulk Driver will assist me with connecting with Elderly Waiver Telesales Representative about this 2. I will find a [...] Active ProblemsNoted DateDiagnosed DateSDOH LACK OF STABLE DHQXGMS0003/30/2023MYC ECC DEP WELCOME- PROBLEM OYFBKXBO40/27/2025MYC ECC DEP WELCOME- PROBLEM TEMPLATE 01/27/2025InfectionOnset DateLast IndicatedResolved 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 Source: [employer]. 11/25/2016AssessmentNoted TimePHQ-9 Depression Total Score: 12104/02/2024 12:17 PM CSTdocumented as of this encounter Care Teams Team MemberRelationshipSpecialtyStart DateEnd Date Saskia Lowe MD [address] [place] [address] PCP - GeneralInternal Medicine11/21/24 [facility]ENCY ([facility] ([place])02/15/19 Merrick Olivas MD [address] [place] [address] MDCardiovascular Disease07/27/21 Merrick Olivas MD [address] [place] [address] MDCardiovascular Disease07/27/21 Lorna Hurt PA-C [address] [place] [address] Physician AssistantUrology08/18/21 Rebekah Lowery [facility] [address] [place] [phone] PharmacistPharmacist10/13/21 Cayla Kumar LSW [facility] [address] [facility] [address] [place], [place] [address] Lead Care CoordinatorPrimary Care - CC04/27/23 Cayla Leavitt PA-C [address] [place] [address] Physician AssistantEndocrinology, Diabetes, and Cqdesayytp28/24/24 Brenda Duval DO [address] [place] [address] PhysicianNeurology1/10/18 Brenda Duval DO [address] [place] [address] Assigned Neuroscience Provider08/16/24 Brooks Kang, PhD LP [address] [place] [phone] Assigned Behavioral Health Provider11/16/24 Cayla Leavitt PA-C [address] [place] [phone] Assigned Endocrinology Provider10/16/24 Saskia Lowe MD [address] [place], [place] [address] Assigned PCP01/23/25documented as of this encounter
--- OUTSIDE RECORDS SUMMARY | 2025-03-19 17:14 | XMS_ITS | Encounter Summary ---
Author Organization [place] Address [address] [place] [address] Care Team Providers Care Bite Block Maker Name Role Phone [facility] Unavailable Merrick Olivas MD Unavailable Merrick Olivas MD Unavailable Lorna Hurt PA-C Unavailable [phone] Rebekah Lowery [facility] Unavailable Cayla Kumar REGULATORY SUBMISSIONS ASSOCIATE Unavailable [phone] Cayla Leavitt-C Unavailable Brenda Duval DO Unavailable [phone] Brenda Duval DO Unavailable [phone] Brooks Kang PhD LP Unavailable Cayla Leavitt-C Unavailable Saskia Lowe MD Primary Care Provider [phone] Saskia Lowe MD Unavailable Encounter Details DateTypeDepartmentCare Team (Latest Contact Info)Remiddshvor08/24/2025Results Follow-Up [address] [place] [address] Cayla Leavitt PA-C [address] [place] [address] Social History Tobacco UseTypesPacks/DayYears UsedDateSmoking Tobacco: FormerCigarettes Smokeless Tobacco: Never Comments:Very small amount - 2 years. Infrequent Alcohol UseStandard Drinks/WeekCommentsNo0 (1 standard drink = 0.6 oz pure alcohol)B1300 Health LiteracyAnswerDate RecordedHow often do you need to have someone help you when you read instructions, pamphlets, or other written material from your doctor or pharmacy?Sxkwqpkwu09/13/2025UDIT-CAnswerDate RecordedQ1: How often do you have a drink containing alcohol?Never01/06/2025Q2: How many drinks containing alcohol do you have on a typical day when you are drinking?Patient does not drink01/06/2025Q3: How often do you have six or more drinks on one occasion?Never01/06/2025PHQ-2AnswerDate RecordedPHQ-2 Score3 01/31/2025[facility] [place] of Occupational Health - Occupational Stress QuestionnaireAnswerDate RecordedDo you feel stress - tense, restless, nervous, or anxious, or unable to sleep at night because yourmind is troubled all the time - these days?To some vrheku1601/06/2025Exercise Vital SignAnswerDate Recorded On average, how many [...] in an abandoned building, in an overnight intermediate, or couch-surfing.)Yes01/31/2025re you worried about losing your [...] InformationValueDate RecordedSex Assigned at BirthNot on fileLegal GykEhzuoc15/04/2012 3:21 AM CSTGender IdentityNot on file Sexual OrientationNot on filedocumented as of this encounter Plan of Treatment DateTypeDepartmentCare Team (Latest Contact Info)Aozpjopvdjv23/12/2026 10:00 AM CSTOffice Visit [facility] [address] [facility] [address] [place] [address] Cayla Leavitt PA-C [address] [place] [address] documented as of this encounter Goals GoalPatient Goal TypeAssociated ProblemsRecent ProgressPatient-Stated?Author Establish Stable Housing Care PlanSDOH LACK OF STABLE [id number]%(04/28/2023 10:06 AM DRY HOUSE OPERATOR)NoReese, Alessia K, REGULATORY SUBMISSIONS ASSOCIATE Note: Barriers: I am unhappy where I am living. I have a cat. Strengths: I have a [employer]/ Elderly Waiver Plaster Die Maker Patient expressed understanding of goal: Yes Action steps to achieve this goal: 1. I will begin looking for a new place to live. Trailer Mechanic will assist me with connecting with Elderly Waiver Plaster Die Maker about this 2. I will find a [...] Active ProblemsNoted DateDiagnosed DateSDOH LACK OF STABLE POPMPUR0803/30/2023MYC ECC DEP WELCOME- PROBLEM GRGXGPRO81/27/2025MYC ECC DEP WELCOME- PROBLEM TEMPLATE 01/27/2025InfectionOnset DateLast IndicatedResolved 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 Source: [employer]. 11/25/2016AssessmentNoted TimePHQ-9 Depression Total Score: 12104/02/2024 12:17 PM CSTdocumented as of this encounter Care Teams Team MemberRelationshipSpecialtyStart DateEnd Saskia Lowe MD [address] [place] [address] PCP - GeneralInternal Medicine11/21/24 [facility]ENCY ([facility]), ([place])02/15/19 Merrick Olivas MD [address] [place] [address] MDCardiovascular Disease07/27/21 Merrick Olivas MD [address] [place] [address] MDCardiovascular Disease07/27/21 Lorna Hurt PA-C [address] [place] [address] Physician AssistantUrology08/18/21 Rebekah Lowery, [facility] [address] [address] PharmacistPharmacist10/13/21 Cayla Kumar LSW [facility] [address] [facility] [address] [place] [address] Lead Care CoordinatorPrimary Care - CC04/27/23 Cayla Leavitt PA-C [address] [place] [phone] Physician AssistantEndocrinology, Diabetes, and Dpomypiqtq63/24/24 Brenda Duval DO [address] [place] [phone] PhysicianNeurology1 Brenda Duval DO [address] [place] [address] Assigned Neuroscience Provider08/16/24 Brooks Kang, PhD LP [address] [place] [phone] Assigned Behavioral Health Provider11/16/24 Cayla Leavitt PA-C [address] [place] [phone] Assigned Endocrinology 10/16/24 Saskia Lowe MD [address] [place] [address] Assigned PCP01/23/25documented as of this encounter
--- OUTSIDE RECORDS SUMMARY | 2025-03-19 17:14 | XMS_ITS | Encounter Summary ---
Author Organization [place] Address [address] [facility] [place] [address] Care Team Providers Care Roofing Applicator Name Role Phone [facility] Unavailable Merrick Olivas MD Unavailable Merrick Olivas MD Unavailable Lorna Hurt PA-C Unavailable Rebekah Lowery [facility] Unavailable Cayla Kumar TRAVEL REGISTERED NURSE ONCOLOGY Unavailable Cayla Leavitt PA-C Unavailable Brenda Duval DO Unavailable [phone] Brenda Duval DO Unavailable [phone] Brooks Kang PhD LP Unavailable Cayla Leavitt PA-C Unavailable Saskia Lowe MD Primary Care Provider Saskia Lowe MD Unavailable Reason for Visit * ReasonOnset QggtFjqkgeumOihfx93/17/2025JRuthie Flores # [id number] Encounter Details DateTypeDepartmentCare Team (Latest Contact Info)Iglvdlcpgmt63/17/2025[place] [address] [place] [address] Adam Matt MD [address] [place] [address] Forms (SAMANTHA Flores # [id number]) Social History Tobacco UseTypesPacks/DayYears UsedDateSmoking Tobacco: FormerCigarettes Smokeless Tobacco: Never Comments:Very small amount - 2 years. Infrequent Alcohol UseStandard Drinks/WeekCommentsNo0 (1 standard drink = 0.6 oz pure alcohol)B1300 Health LiteracyAnswerDate RecordedHow often do you need to have someone help you when you read instructions, pamphlets, or other written material from your doctor or pharmacy?Qkkhhdwoe95/13/2025UDIT-CAnswerDate RecordedQ1: How often do you have a drink containing alcohol?Never01/06/2025Q2: How many drinks containing alcohol do you have on a typical day when you are drinking?Patient does not drink01/06/2025Q3: How often do you have six or more drinks on one occasion?Never01/06/2025PHQ-2AnswerDate RecordedPHQ-2 Score3 01/31/2025[facility] [place] of Occupational Health - Occupational Stress QuestionnaireAnswerDate RecordedDo you feel stress - tense, restless, nervous, or anxious, or unable to sleep at night because yourmind is troubled all the time - these days?To some gjcgmv1201/06/2025Exercise Vital SignAnswerDate Recorded On average, how many [...] in an abandoned building, in an overnight fpc, or couch-surfing.)Yes01/31/2025re you worried about losing your [...] InformationValueDate RecordedSex Assigned at BirthNot on fileLegal LopYzzuay19/04/2012 3:21 AM CSTGender IdentityNot on file Sexual OrientationNot on filedocumented as of this encounter Miscellaneous Notes * Telephone Encounter - Marisa Nolasco - 03/13/2025 10:40 AM CST Paperwork signed and faxed. [employer] * Telephone Encounter - Tianna Hernández - 03/12/2025 2:29 PM CST Discharge summary report received via fax. Form in your mailbox to be signed. [employer]IO[employer]IST[employer] documented in this encounter Plan of Treatment DateTypeDepartmentCare Team (Latest Contact Info)Hwnwcrdwuue14/12/2026 10:00 AM CSTOffice Visit [facility] [address] [place] [address] Cayla Leavitt PA-C [address] [place] [address] documented as of this encounter Goals GoalPatient Goal TypeAssociated ProblemsRecent ProgressPatient-Stated?Author Establish Stable Housing Care PlanSDOH LACK OF STABLE [id number]%(04/28/2023 10:06 AM MANAGER BIOSTATISTICS)Alessia Rutledge LSW Note: Barriers: I am unhappy where I am living. I have a cat. Strengths: I have a [facility]/ Elderly Waiver Web Application Developer Patient expressed understanding of goal: Yes Action steps to achieve this goal: 1. I will begin looking for a new place to live. Dramatic Art Teacher will assist me with connecting with Elderly Waiver Web Application Developer about this 2. I will find a [...] Active ProblemsNoted DateDiagnosed DateSDOH LACK OF STABLE OKFNEYD0803/30/2023MYC ECC DEP WELCOME- PROBLEM ZAWFCPSL26/27/2025MYC ECC DEP WELCOME- PROBLEM TEMPLATE 01/27/2025InfectionOnset DateLast IndicatedResolved 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 Source: [employer]. 11/25/2016AssessmentNoted TimePHQ-9 Depression Total Score: 12104/02/2024 12:17 PM CSTdocumented as of this encounter Care Teams Team MemberRelationshipSpecialtyStart DateEnd Date Saskia Lowe MD [address] [place] [address] PCP - GeneralInternal Medicine11/21/24 [facility] HEALTH AGENCY ([facility]), ([place])02/15/19 Merrick Olivas MD [address] [place] [address] MDCardiovascular Disease07/27/21 Merrick Olivas MD [address] [place] [address] MDCardiovascular Disease07/27/21 Lorna Hurt PA-C [address] [place], [place] [address] Physician AssistantUrology08/18/21 Rebekah Lowery [facility] [address] [place] [address] PharmacistPharmacist10/13/21 Cayla Kumar LSW [facility] [address] [facility] [address] [place] [address] Lead Care CoordinatorPrimary Care - CC04/27/23 Cayla Leavitt PA-C [address] [place] [phone] Physician AssistantEndocrinology, Diabetes, and Hruhqewkmg16/24/24 Brenda Duval DO [address] [place] [address] PhysicianNeurology1/10/18 Brenda Duval DO [address] [place], [place] [phone] Assigned Neuroscience Provider08/16/24 Brooks Kang, PhD LP [address] [place] [phone] Assigned Behavioral Health Provider11/16/24 Cayla Leavitt PA-C [address] [place] [address] 195485 Assigned Endocrinology Provider10/16/24 Saskia Lowe MD [address] [place], [place] [address] Assigned PCP01/23/25documented as of this encounter
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
--- OUTSIDE RECORDS SUMMARY | 2025-03-19 17:15 | XMS_ITS | Encounter Summary ---
Author Organization [facility] Address [address] [place] [address] Care Team Providers Care Ground Hand Name Role Phone [facility] Unavailable Merrick Olivas MD Unavailable Merrick Olivas MD Unavailable Lorna Hurt PA-C Unavailable [phone] Rebekah Lowery [facility] Unavailable Cayla Kumar INSTRUMENT PANEL ASSEMBLER Unavailable [phone] Mahamed Soto HAND PLUG SHAPER TRUSS DESIGNER Unavailable Cayla Leavitt PA-C Unavailable Brenda Duval DO Unavailable [phone] Brenda Duval DO Unavailable [phone] Brooks Kang PhD LP Unavailable [phone] Cayla Leavitt PA-C Unavailable Saskia Lowe MD Primary Care Provider [phone] Saskia Lowe MD Unavailable Encounter Details DateTypeDepartmentCare Team (Latest Contact Info)Bpjamjwwreb95/17/2025Medical Correspondence [facility] Information Management [address] [facility] [address] [place] [address] Scan, Non-Provider [facility] Social History Tobacco UseTypesPacks/DayYears UsedDateSmoking Tobacco: FormerCigarettes Smokeless Tobacco: Never Comments:Very small amount - 2 years. Infrequent Alcohol UseStandard Drinks/WeekCommentsNo0 (1 standard drink = 0.6 oz pure alcohol)B1300 Health LiteracyAnswerDate RecordedHow often do you need to have someone help you when you read instructions, pamphlets, or other written material from your doctor or pharmacy?Yqliuphoh91/13/2025UDIT-CAnswerDate RecordedQ1: How often do you have a drink containing alcohol?Never01/06/2025Q2: How many drinks containing alcohol do you have on a typical day when you are drinking?Patient does not drink01/06/2025Q3: How often do you have six or more drinks on one occasion?Never01/06/2025PHQ-2AnswerDate RecordedPHQ-2 Score3 01/31/2025[facility] - Occupational Stress QuestionnaireAnswerDate RecordedDo you feel stress - tense, restless, nervous, or anxious, or unable to sleep at night because yourmind is troubled all the time - these days?To some inakkx8401/06/2025Exercise Vital SignAnswerDate Recorded On average, how many [...] in an abandoned building, in an overnight penitentiary, or couch-surfing.)Yes01/31/2025re you worried about losing your [...] InformationValueDate RecordedSex Assigned at BirthNot on fileLegal ModPbnryd36/04/2012 3:21 AM CSTGender IdentityNot on file Sexual OrientationNot on filedocumented as of this encounter Plan of Treatment DateTypeDepartmentCare Team (Latest Contact Info)Hezbgvvraal72/12/2026 10:00 AM CSTOffice Visit [facility] [address] [place] [address] Cayla Leavitt PA-C [address] [place], [place] [address] documented as of this encounter Goals GoalPatient Goal TypeAssociated ProblemsRecent ProgressPatient-Stated?Author Establish Stable Housing Care PlanSDOH LACK OF STABLE [id number]%(04/28/2023 10:06 AM E COMMERCE DEVELOPER)Alessia Rutledge LSW Note: Barriers: I am unhappy where I am living. I have a cat. Strengths: I have a [facility]/ Elderly Waiver Provider Relations Representative Patient expressed understanding of goal: Yes Action steps to achieve this goal: 1. I will begin looking for a new place to live. Corporate Analyst will assist me with connecting with Elderly Waiver Provider Relations Representative about this 2. I will find a resource that an help me with moving my belongings. Care coordination will assist as needed. documented as of this encounter Visit Diagnoses Not on filedocumented in this encounter Additional Health Concerns Active ProblemsNoted DateDiagnosed DateSDOH LACK OF STABLE CLIJLLP0703/30/2023 InfectionOnset DateLast IndicatedResolved 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 Source: [place]. 11/25/2016AssessmentNoted TimePHQ-9 Depression Total Score: 1:50 PM CDTdocumented as of this encounter Care Teams Team MemberRelationshipSpecialtyStart DateEnd Date Saskia Lowe MD [address] [place] [address] PCP - GeneralInternal Medicine11/21/24 [facility] ([facility] ([place])02/15/19 Merrick Olivas MD [address] [place] [address] MDCardiovascular Disease07/27/21 Merrick Olivas MD [address] [place] [address] MDCardiovascular Disease07/27/21 Lorna Hurt PA-C [address] [place] [address] Physician AssistantUrology08/18/21 Rebekah Lowery [facility] [address] [address] PharmacistPharmacist10/13/21 Cayla Kumar LSW [facility] [address] [facility] [address] [place] [address] Lead Care CoordinatorPrimary Care - CC2 Mahamed Soto APRN TRUSS DESIGNER [address] [place] [address] Assigned PCP09/16/2409 Cayla Leavitt PA-C [address] [place], [place] [id number] Physician AssistantEndocrinology, Diabetes, and Rojsuauoca81/24/24 Brenda Duval DO [address] [place], [place] [address] PhysicianNeurology1 Brenda Duval DO [address] [place], [place] [phone] Assigned Neuroscience Provider08/16/24 Brooks Kang, PhD LP [address] [place] [phone] Assigned Behavioral Health Provider11/16/24 Cayla Leavitt PA-C [address] [place], [place] [address] Assigned Endocrinology Provider10/16/24 Saskia Lowe MD [address] [place] [address] Assigned PCP01/23/25documented as of this encounter
--- OUTSIDE RECORDS SUMMARY | 2025-03-19 17:15 | XMS_ITS | Encounter Summary ---
Author Organization [place] Address [address] [address] Care Team Providers Care First Aid Nurse Name Role Phone [facility] Unavailable Merrick Olivas MD Unavailable Merrick Olivas MD Unavailable Lorna Hurt PA-C Unavailable Rebekah Lowery [facility] Unavailable Cayla Kumar CLAY MACHINE OPERATOR Unavailable [phone] Cayla Leavitt PA-C Unavailable Brenda Duval DO Unavailable [phone] Brenda Duval DO Unavailable [phone] Brooks Kang PhD LP Unavailable [phone] Cayla Leavitt PA-C Unavailable Saskia Lowe MD Primary Care Provider [phone] Saskia Lowe MD Unavailable Reason for Visit * ReasonOnset JksnMsyutyyuWqucg95/07/2025[facility] - hospital orders Encounter Details DateTypeDepartmentCare Team (Latest Contact Info)Pmhqxkckfdq79/07/2025[address] [place] [address] Saskia Lowe MD [address] [place] [address] Forms ([facility] - [facility] orders) Social History Tobacco UseTypesPacks/DayYears UsedDateSmoking Tobacco: FormerCigarettes Smokeless Tobacco: Never Comments:Very small amount - 2 years. Infrequent Alcohol UseStandard Drinks/WeekCommentsNo0 (1 standard drink = 0.6 oz pure alcohol)B1300 Health LiteracyAnswerDate RecordedHow often do you need to have someone help you when you read instructions, pamphlets, or other written material from your doctor or pharmacy?Lzhfnvrat51/13/2025UDIT-CAnswerDate RecordedQ1: How often do you have a drink containing alcohol?Never01/06/2025Q2: How many drinks containing alcohol do you have on a typical day when you are drinking?Patient does not drink01/06/2025Q3: How often do you have six or more drinks on one occasion?Never01/06/2025PHQ-2AnswerDate RecordedPHQ-2 Score3 01/31/2025[facility] [place] of Occupational Health - Occupational Stress QuestionnaireAnswerDate RecordedDo you feel stress - tense, restless, nervous, or anxious, or unable to sleep at night because yourmind is troubled all the time - these days?To some hejuin9001/06/2025Exercise Vital SignAnswerDate Recorded On average, how many [...] in an abandoned building, in an overnight nursing home, or couch-surfing.)Yes01/31/2025re you worried about losing [...] InformationValueDate RecordedSex Assigned at BirthNot on fileLegal NigJylekw05/04/2012 3:21 AM CSTGender IdentityNot on file Sexual OrientationNot on filedocumented as of this encounter Miscellaneous Notes * Telephone Encounter - Tianna Hernández - 02/04/2025 1:24 PM CST Paperwork signed and faxed. IANCE MECHANIC * Telephone Encounter - Tianna Hernández - 01/31/2025 2:39 PM CST Hospital orders follow up received via fax. Form in your mailbox to be signed. IANCE MECHANIC documented in this encounter Plan of Treatment DateTypeDepartmentCare Team (Latest Contact Info)Sgfmgezuamy04/12/2026 10:00 AM CSTOffice Visit M [facility] [address] [place] [address] Cayla Leavitt PA-C [address] [place], [place] [address] documented as of this encounter Goals GoalPatient Goal TypeAssociated ProblemsRecent ProgressPatient-Stated?Author Establish Stable Housing Care PlanSDOH LACK OF STABLE [id number]%(04/28/2023 10:06 AM APPLIANCE MECHANIC)Alessia Rutledge LSW Note: Barriers: I am unhappy where I am living. I have a cat. Strengths: [facility] W[facility] Pilot Can Router Patient expressed understanding of goal: Yes Action steps to achieve this goal: 1. I will begin looking for a new place to live. Gas Station Clerk will assist me with connecting with Elderly Waiver Pilot Can Router about this 2. I will find a [...] Active ProblemsNoted DateDiagnosed DateSDOH LACK OF STABLE OYRPHPS4503/30/2023[facility] ECC DEP WELCOME- PROBLEM GEBYYBTQ22/27/2025MYC ECC DEP WELCOME- PROBLEM TEMPLATE 01/27/2025InfectionOnset DateLast IndicatedResolved 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 Source: [employer]. 11/25/2016AssessmentNoted TimePHQ-9 Depression Total Score: 12104/02/2024 12:17 PM CSTdocumented as of this encounter Care Teams Team MemberRelationshipSpecialtyStart DateEnd Date Saskia Lowe MD [address] [place] [address] PCP - GeneralInternal Medicine11/21/24 [facility] HEALTH AGENCY ([facility]), ([place])02/15/19 Merrick Olivas MD [address] [place] [address] MDCardiovascular Disease07/27/21 Merrick Olivas MD [address] [place] [address] MDCardiovascular Disease07/27/21 Lorna Hurt PA-C [address] [place] [address] Physician AssistantUrology08/18/21 Rebekah Lowery RPH [address] [place] [phone] PharmacistPharmacist10/13/21 Cayla Kumar [employer]SW [employer] [address] [facility] [address] [place] [address] Lead Care CoordinatorPrnovant health thomasville medical centerry Care - CC04/27/23 Cayla Leavitt PA-C [address] [place] [address] Physician AssistantEndocrinology, Diabetes, and Yflssjikqf19/24/24 Brenda Duval DO [address] [place] [address] PhysicianNeurology1/10/18 Brenda Duval DO [address] [place] [address] Assigned Neuroscience Provider08/16/24 Brooks Kang, PhD LP [address] [place] [address] Assigned Behavioral Health Provider11/16/24 Cayla Leavitt PA-C [address] [place] [address] Assigned Endocrinology Provider10/16/24 Saskia Lowe MD [address] [place] [address] Assigned PCP01/23/25documented as of this encounter
--- OUTSIDE RECORDS SUMMARY | 2025-03-19 17:16 | XMS_ITS | Encounter Summary ---
Author Organization [place] Address [address] [facility] [place] [address] Care Team Providers Care [employer]er [employer]oe [employer] Name Role Phone [facility] Unavailable Merrick Olivas MD Unavailable Merrick Olivas MD Unavailable Lorna Hurt PA-C Unavailable Rebekah Lowery [facility] Unavailable Cayla Kumar CHILD PROTECTIVE SERVICES SPECIALIST Unavailable Cayla Leavitt PA-C Unavailable Brenda Dvual DO Unavailable [phone] Brenda Duval DO Unavailable [phone] Brooks Kang PhD LP Unavailable Cayla Leavitt PA-C Unavailable Saskia Lowe MD Primary Care Provider Saskia Lowe MD Unavailable Reason for Visit * ReasonOnset UddeXugndblaIebgk35/10/2025assia Encounter Details DateTypeDepartmentCare Team (Latest Contact Info)Balcjtnfsdd37/10/2025[facility] [address] [place] [address] Saskia Lowe MD [address] [place] [address] Forms ([place]) Social History Tobacco UseTypesPacks/DayYears UsedDateSmoking Tobacco: FormerCigarettes Smokeless Tobacco: Never Comments:Very small amount - 2 years. Infrequent Alcohol UseStandard Drinks/WeekCommentsNo0 (1 standard drink = 0.6 oz pure alcohol)B1300 Health LiteracyAnswerDate RecordedHow often do you need to have someone help you when you read instructions, pamphlets, or other written material from your doctor or pharmacy?Dvoftuuig82/13/2025UDIT-CAnswerDate RecordedQ1: How often do you have a drink containing alcohol?Never01/06/2025Q2: How many drinks containing alcohol do you have on a typical day when you are drinking?Patient does not drink01/06/2025Q3: How often do you have six or more drinks on one occasion?Never01/06/2025PHQ-2AnswerDate RecordedPHQ-2 Score3 01/31/2025[facility] [place] of Occupational Health - Occupational Stress QuestionnaireAnswerDate RecordedDo you feel stress - tense, restless, nervous, or anxious, or unable to sleep at night because yourmind is troubled all the time - these days?To some vyoonr5301/06/2025Exercise Vital SignAnswerDate Recorded On average, how many [...] InformationValueDate RecordedSex Assigned at BirthNot on fileLegal PwyDzxyzy07/04/2012 3:21 AM CSTGender IdentityNot on file Sexual OrientationNot on filedocumented as of this encounter Miscellaneous Notes * Telephone Encounter - Marisa Nolasco - 02/05/2025 10:29 AM CST Paperwork signed and faxed. NSIVE FIRE CONTROL SYSTEMS OPERATOR * Telephone Encounter - Tianna Hernández - 02/03/2025 2:59 PM CST Report of patient going to the [facility] received via fax. Form in your mailbox to be signed. NSIVE FIRE CONTROL SYSTEMS OPERATOR documented in this encounter Plan of Treatment DateTypeDepartmentCare Team (Latest Contact Info)Fhwpspdhplu83/12/2026 10:00 AM CSTOffice Visit M [facility] [address] [place] [address] Cayla Leavitt PA-C [address] [place], [place] [address] documented as of this encounter Goals GoalPatient Goal TypeAssociated ProblemsRecent ProgressPatient-Stated?Author Establish Stable Housing Care PlanSDOH LACK OF STABLE [id number]%(04/28/2023 10:06 AM DEFENSIVE FIRE CONTROL SYSTEMS OPERATOR)Alessia Rutledge LSW Note: Barriers: I am unhappy where I am living. I have a cat. Strengths: [facility] Elderly Waiver Dope Heater Patient expressed understanding of goal: Yes Action steps to achieve this goal: 1. I will begin looking for a new place to live. Nurse Emergency will assist me with connecting with Elderly Waiver Dope Heater about this 2. I will find a [...] Active ProblemsNoted DateDiagnosed DateSDOH LACK OF STABLE KKLAMTR0203/30/2023MYC ECC DEP WELCOME- PROBLEM TIFORVWG54/27/2025MYC ECC DEP WELCOME- PROBLEM TEMPLATE 01/27/2025InfectionOnset DateLast IndicatedResolved 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 Source: [employer]. 11/25/2016AssessmentNoted TimePHQ-9 Depression Total Score: 12104/02/2024 12:17 PM CSTdocumented as of this encounter Care Teams Team MemberRelationshipSpecialtyStart DateEnd Date Saskia Lowe MD [address] [place] [address] PCP - GeneralInternal Medicine11/21/24 [facility] HEALTH AGENCY ([facility]), ([place])02/15/19 Merrick Olivas MD [address] [place] [address] MDCardiovascular Disease07/27/21 Merrick Olivas MD [address] [place] [address] MDCardiovascular Disease07/27/21 Lorna Hurt PA-C [address] [place], [place] [address] Physician AssistantUrology08/18/21 Rebekah Lowery [facility] [address] [place] [address] PharmacistPharmacist10/13/21 Cayla Kumar LSW [employer] [address] [facility] [address] [place], [place] [address] Lead Care CoordinatorPrimary Care - CC04/27/23 Cayla Leavitt PA-C [address] [place] [address] Physician AssistantEndocrinology, Diabetes, and Sroanhjoyc37/24/24 Brenda Duval DO [address] [place] [address] PhysicianNeurology1/10/18 Brenda Duval DO [address] [place] [address] Assigned Neuroscience Provider08/16/24 Brooks Kang, PhD LP [address] [place] [address] Assigned Behavioral Health Provider11/16/24 Cayla Leavitt PA-C [address] [place] [address] Assigned Endocrinology Provider10/16/24 Saskia Lowe MD [address] [place] [address] Assigned PCP01/23/25documented as of this encounter
--- OUTSIDE RECORDS SUMMARY | 2025-03-19 17:16 | XMS_ITS | Encounter Summary ---
Author Organization [place] Address [address] [facility] [place] [address] Care Team Providers Care Teacher Of The Deaf Name Role Phone [facility] Unavailable Merrick Olivas MD Unavailable Merrick Olivas MD Unavailable Lorna Hurt PA-C Unavailable [phone] Rebekah Lowery [facility] Unavailable Cayla Kumar ICE CREAM VENDOR Unavailable [phone] Cayla Leavitt PA-C Unavailable Brenda Duval DO Unavailable Brenda Duval DO Unavailable [phone] Brooks Kang PhD LP Unavailable Cayla Leavitt PA-C Unavailable Saskia Lowe MD Primary Care Provider [phone] Saskia Lowe MD Unavailable Encounter Details DateTypeDepartmentCare Team (Latest Contact Info)Yeaulxgqwqp33/09/2025Travel Social History Tobacco UseTypesPacks/DayYears UsedDateSmoking Tobacco: FormerCigarettes Smokeless Tobacco: Never Comments:Very small amount - 2 years. Infrequent Alcohol UseStandard Drinks/WeekCommentsNo0 (1 standard drink = 0.6 oz pure alcohol)B1300 Health LiteracyAnswerDate RecordedHow often do you need to have someone help you when you read instructions, pamphlets, or other written material from your doctor or pharmacy?Dkjmflzbg16/13/2025UDIT-CAnswerDate RecordedQ1: How often do you have a drink containing alcohol?Never01/06/2025Q2: How many drinks containing alcohol do you have on a typical day when you are drinking?Patient does not drink01/06/2025Q3: How often do you have six or more drinks on one occasion?Never01/06/2025PHQ-2AnswerDate RecordedPHQ-2 Score3 01/31/2025[facility] [place] of Occupational Health - Occupational Stress QuestionnaireAnswerDate RecordedDo you feel stress - tense, restless, nervous, or anxious, or unable to sleep at night because yourmind is troubled all the time - these days?To some rhaeak1101/06/2025Exercise Vital SignAnswerDate Recorded On average, how many [...] in an abandoned building, in an overnight custodial, or couch-surfing.)Yes01/31/2025re you worried about losing your [...] InformationValueDate RecordedSex Assigned at BirthNot on fileLegal TfoEogtlp19/04/2012 3:21 AM CSTGender IdentityNot on file Sexual OrientationNot on filedocumented as of this encounter Plan of Treatment DateTypeDepartmentCare Team (Latest Contact Info)Crkwrgcoqzk38/12/2026 10:00 AM CSTOffice Visit [facility] [address] [facility] [address] [place] [address] Cayla Leavitt PA-C [address] [place] [address] documented as of this encounter Goals GoalPatient Goal TypeAssociated ProblemsRecent ProgressPatient-Stated?Author Establish Stable Housing Care PlanSDOH LACK OF STABLE [id number]%(04/28/2023 10:06 AM CERTIFIED HYPERBARIC TECHNICIAN)Alessia Rutledge LSW Note: Barriers: I am unhappy where I am living. I have a cat. Strengths: I have a [facility]/ Elderly Waiver Crane Man Patient expressed understanding of goal: Yes Action steps to achieve this goal: 1. I will begin looking for a new place to live. Roll Up Helper will assist me with connecting with Elderly Waiver Crane Man about this 2. I will find a [...] Active ProblemsNoted DateDiagnosed DateSDOH LACK OF STABLE EMPCESS4503/30/2023MYC ECC DEP WELCOME- PROBLEM EFRFYGYB73/27/2025MYC ECC DEP WELCOME- PROBLEM TEMPLATE 01/27/2025InfectionOnset DateLast IndicatedResolved 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 Source: [employer]. 11/25/2016AssessmentNoted TimePHQ-9 Depression Total Score: 12104/02/2024 12:17 PM CSTdocumented as of this encounter Care Teams Team MemberRelationshipSpecialtyStart DateEnd Date Saskia Lowe MD [address] [place] [address] PCP - GeneralInternal Medicine11/21/24 [facility] HOME HEALTH AGENCY ([facility]), ([place])02/15/19 Merrick Olivas MD [address] [place] [address] MDCardiovascular Disease07/27/21 Merrick Olivas MD [address] [place] [address] MDCardiovascular Disease07/27/21 Lorna Hurt PA-C [address] [place] [address] Physician AssistantUrology08/18/21 Rebekah Lowery [facility] [address] [place] [phone] PharmacistPharmacist10/13/21 Cayla Kumar LSW [employer] [address] [facility] [address] [place], [place] [address] Lead Care CoordinatorPrimary Care - CC04/27/23 Cayla Leavitt PA-C [address] [place] [address] Physician AssistantEndocrinology, Diabetes, and Slgyyhanfr40/24/24 Brenda Duval DO [address] [place] [address] PhysicianNeurology1/10/18 Brenda Duval DO [address] [place] [address] Assigned Neuroscience Provider08/16/24 Brooks Kang, PhD LP [address] [place] [address] Assigned Behavioral Health Provider11/16/24 Cayla Leavitt PA-C [address] [place] [phone] Assigned Endocrinology Provider10/16/24 Saskia Lowe MD [address] [place], [place] [address] Assigned PCP01/23/25documented as of this encounter
--- OUTSIDE RECORDS SUMMARY | 2025-03-19 17:16 | XMS_ITS | Encounter Summary ---
Author Organization [place] Address [address] [facility] [place] [address] Care Team Providers Care Commodity Trader Name Role Phone [facility] Unavailable Merrick Olivas MD Unavailable Merrick Olivas MD Unavailable Lorna Hurt PA-C Unavailable Rebekah Lowery [facility] Unavailable Cayla Kumar BONDED STRAND OPERATOR Unavailable Cayla Leavitt PA-C Unavailable Brenda Duval DO Unavailable [phone] Brenda Duval DO Unavailable [phone] Brooks Kang PhD LP Unavailable Cayla Leavitt PA-C Unavailable Saskia Lowe MD Primary Care Provider Saskia Lowe MD Unavailable Reason for Visit * ReasonOnset MzzdGtbhwzqhVaqwlftm52/12/2025 Encounter Details DateTypeDepartmentCare Team (Latest Contact Info)Kjuolldyfkl14/12/2025[place] [address] [place] [address] Saskia Lowe MD [address] [place] [address] Referral Social History Tobacco UseTypesPacks/DayYears UsedDateSmoking Tobacco: FormerCigarettes Smokeless Tobacco: Never Comments:Very small amount - 2 years. Infrequent Alcohol UseStandard Drinks/WeekCommentsNo0 (1 standard drink = 0.6 oz pure alcohol)B1300 Health LiteracyAnswerDate RecordedHow often do you need to have someone help you when you read instructions, pamphlets, or other written material from your doctor or pharmacy?Jqckyxtjh45/13/2025UDIT-CAnswerDate RecordedQ1: How often do you have a drink containing alcohol?Never01/06/2025Q2: How many drinks containing alcohol do you have on a typical day when you are drinking?Patient does not drink01/06/2025Q3: How often do you have six or more drinks on one occasion?Never01/06/2025PHQ-2AnswerDate RecordedPHQ-2 Score3 01/31/2025[facility] [place] of Occupational Health - Occupational Stress QuestionnaireAnswerDate RecordedDo you feel stress - tense, restless, nervous, or anxious, or unable to sleep at night because yourmind is troubled all the time - these days?To some pjxlfi8601/06/2025Exercise Vital SignAnswerDate Recorded On average, how many [...] in an abandoned building, in an overnight usp, or couch-surfing.)Yes01/31/2025re you worried about losing your [...] InformationValueDate RecordedSex Assigned at BirthNot on fileLegal YasHndtdd80/04/2012 3:21 AM CSTGender IdentityNot on file Sexual OrientationNot on filedocumented as of this encounter Miscellaneous Notes * Telephone Encounter - Chayo Nye - 02/05/2025 9:41 AM CST MTM referral from: Transitions of Care (recent hospital discharge, TCU discharge, or ED visit) MTM referral outreach attempt #2 on February 05, 2025 at 9:41 AM Outcome: Spoke with patient Patient is seeing PCP today. Use [employer] for the carrier/Plan on the flowsheet DANITA Sinha Pododermatologist ING MACHINE OPERATOR OR TENDER documented in this encounter Plan of Treatment DateTypeDepartmentCare Team (Latest Contact Info)Imuexetpihf20/12/2026 10:00 AM CSTOffice Visit M [facility] [address] [place] [address] Cayla Leavitt PA-C [address] [place] [address] documented as of this encounter Goals GoalPatient Goal TypeAssociated ProblemsRecent ProgressPatient-Stated?Author Establish Stable Housing Care PlanSDOH LACK OF STABLE [id number]%(04/28/2023 10:06 AM SANDING MACHINE OPERATOR OR TENDER)Alessia Rutledge LSW Note: Barriers: I am unhappy where I am living. I have a cat. Strengths: I [facility] a [facility]/ Elderly Waiver Alignment Mechanic Patient expressed understanding of goal: Yes Action steps to achieve this goal: 1. I will begin looking for a new place to live. Director Of First Impressions will assist me with connecting with Elderly Waiver Alignment Mechanic about this 2. I will find [...] Active ProblemsNoted DateDiagnosed DateSDOH LACK OF STABLE JPAUCAO7203/30/2023MYC ECC DEP WELCOME- PROBLEM UAGHBMJQ79/27/2025MYC ECC DEP WELCOME- PROBLEM TEMPLATE 01/27/2025InfectionOnset DateLast IndicatedResolved 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 Source: [employer]. 11/25/2016AssessmentNoted TimePHQ-9 Depression Total Score: 12:17 PM CSTdocumented as of this encounter Care Teams Team MemberRelationshipSpecialtyStart DateEnd Date Saskia Lowe MD [address] [place] [address] PCP - GeneralInternal Medicine11/21/24 [facility] HEALTH AGENCY ([facility]), ([place])02/15/19 Merrick Olivas MD [address] [place], [place] [address] MDCardiovascular Disease07/27/21 Merrick Olivas MD [address] [place], [place] [address] MDCardiovascular Disease07/27/21 Lorna Hurt PA-C [address] [place], [place] [address] Physician AssistantUrology08/18/21 Rebekah Lowery [facility] [address] [phone] PharmacistPharmacist10/13/21 Cayla Kumar LSW [employer] [address] [facility] [address] [place], [place] [address] Lead Care CoordinatorPrimary Care - CC04/27/23 Cayla Leavitt PA-C [address] [place] [address] Physician AssistantEndocrinology, Diabetes, and Ayhjgwtkbm18/24/24 Brenda Duval DO [address] [place] [address] PhysicianNeurology1/10/18 Brenda Duval DO [address] [place], [place] [phone] Assigned Neuroscience Provider08/16/24 Brooks Kang, PhD LP [address] [place] [address] Assigned Behavioral Health Provider11/16/24 Cayla Leavitt PA-C [address] [place], [place] [address] Assigned Endocrinology Provider10/16/24 Saskia Lowe MD [address] [place], [place] [address] Assigned PCP01/23/25documented as of this encounter
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
--- OUTSIDE RECORDS SUMMARY | 2025-03-19 17:16 | XMS_ITS | Encounter Summary ---
Author Organization [place] Address [address] [facility] [place] [address] Care Team Providers Care Shell Worker Name Role Phone [facility] Unavailable Merrick Olivas MD Unavailable Merrick Olivas MD Unavailable Lorna Hurt PA-C Unavailable [phone] Rebekah Lowery [facility] Unavailable Cayla Kumar DATA LIBRARIAN Unavailable Cayla Leavitt PA-C Unavailable Brenda Duval DO Unavailable [phone] Brenda Duval DO Unavailable [phone] Brooks Kang PhD LP Unavailable Cayla Leavitt PA-C Unavailable Saskia Lowe MD Primary Care Provider [phone] Saskia Lowe MD Unavailable Reason for Visit * ReasonOnset DateCommentsMedication Wcntlmdu16/11/2025 Encounter Details DateTypeDepartmentCare Team (Latest Contact Info)Kybexdawipx05/11/2025[place] [address] [place] [address] Saskia Lowe MD [address] [place] [address] Medication Question Social History Tobacco UseTypesPacks/DayYears UsedDateSmoking Tobacco: FormerCigarettes Smokeless Tobacco: Never Comments:Very small amount - 2 years. Infrequent Alcohol UseStandard Drinks/WeekCommentsNo0 (1 standard drink = 0.6 oz pure alcohol)B1300 Health LiteracyAnswerDate RecordedHow often do you need to have someone help you when you read instructions, pamphlets, or other written material from your doctor or pharmacy?Bfgpfemte12/13/2025UDIT-CAnswerDate RecordedQ1: How often do you have a drink containing alcohol?Never01/06/2025Q2: How many drinks containing alcohol do you have on a typical day when you are drinking?Patient does not drink01/06/2025Q3: How often do you have six or more drinks on one occasion?Never01/06/2025PHQ-2AnswerDate RecordedPHQ-2 Score3 01/31/2025[facility] [place] [facility] - Occupational Stress QuestionnaireAnswerDate RecordedDo you feel stress - tense, restless, nervous, or anxious, or unable to sleep at night because yourmind is troubled all the time - these days?To some cjgxzz1601/06/2025Exercise Vital SignAnswerDate Recorded On average, how many [...] InformationValueDate RecordedSex Assigned at BirthNot on fileLegal UcmMzpatx42/04/2012 3:21 AM CSTGender IdentityNot on file Sexual OrientationNot on filedocumented as of this encounter Miscellaneous Notes * Telephone Encounter - Lorna Cutler RN - 02/04/2025 2:53 PM CST Juanita CULVER calling from the [employer], Calling about order for a tetanus booster. Normally assisted living doesn't administer tetanus booster, but on the faxed order it says pharmacist administered TDAP administered 01/31/2025 at [facility] Advised ENGAGEMENT MANAGER ENGAGEMENT MANAGER stated understanding and had no further questions. Advised ENGAGEMENT MANAGER to call [phone] and ask to speak to a triage nurse with any further questions or concerns. [employer] documented in this encounter Plan of Treatment DateTypeDepartmentCare Team (Latest Contact Info)Ntsmqnnrthj28/12/2026 10:00 AM CSTOffice Visit M [facility] [address] [place] [address] Cayla Leavitt PA-C [address] [place], [place] [address] documented as of this encounter Goals GoalPatient Goal TypeAssociated ProblemsRecent ProgressPatient-Stated?Author Establish Stable Housing Care PlanSDOH LACK OF STABLE [id number]%(04/28/2023 10:06 AM [employer])Alessia Rutledge LSW Note: Barriers: I am unhappy where I am living. I have a cat. Strengths: I have a [facility]/ Elderly Waiver Executive Sales Assistant Patient expressed understanding of goal: Yes Action steps to achieve this goal: 1. I will begin looking for a new place to live. Automotive Tire Tester will assist me with connecting with Elderly Waiver Executive Sales Assistant about this 2. I will find a [...] Active ProblemsNoted DateDiagnosed DateSDOH LACK OF STABLE UCQEUGU9303/30/2023[facility] ECC DEP WELCOME- PROBLEM BIJWGKLX86/27/2025[facility] ECC DEP WELCOME- PROBLEM TEMPLATE 01/27/2025InfectionOnset DateLast IndicatedResolved 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 Source: [facility]. 11/25/2016AssessmentNoted TimePHQ-9 Depression Total Score: 12104/02/2024 12:17 PM CSTdocumented as of this encounter Care Teams Team MemberRelationshipSpecialtyStart DateEnd Date Saskia Lowe MD [address] [place] [address] PCP - GeneralInternal Medicine11/21/24 [facility] ([facility] ([place])02/15/19 Merrick Olivas MD [address] [place] [address] MDCardiovascular Disease07/27/21 Merrick Olivas MD [address] [place] [address] MDCardiovascular Disease07/27/21 Lorna Hurt PA-C [address] [place], [place] [address] Physician AssistantUrology08/18/21 Rebekah Lowery [facility] [address] [address] PharmacistPharmacist10/13/21 Cayla Kumar LSW [facility] [address] [facility] [address] [place], [place] [address] Lead Care CoordinatorPrimary Care - CC04/27/23 Cayla Leavitt PA-C [address] [place], [place] [address] Physician AssistantEndocrinology, Diabetes, and Fszxwgkwla05/24/24 Brenda Duval DO [address] [place], [place] [address] PhysicianNeurology1/10/18 Brenda Duval DO [address] [place], [place] [address] Assigned Neuroscience Provider08/16/24 Broosk Kang, PhD LP [address] [place] [phone] Assigned Behavioral Health Provider11/16/24 Cayla Leavitt PA-C [address] [place] [phone] Assigned Endocrinology Provider10/16/24 Saskia Lowe MD [address] [place] [address] Assigned PCP01/23/25documented as of this encounter
[2025-03-19] MEDS: NITROGLYCERIN 0.4 MG TAB.SUBL SUBLINGUAL (17:21)
[2025-03-19] MEDS: ASPIRIN 81 MG TAB.CHEW 324 MG PO (17:21)
[2025-03-19 17:41] LABS: Hematocrit* 37.7 % (33.0-51.0); Hemoglobin* 12.0 gm/dL (12.0-16.0); Immature Granulocytes Abs Auto 0.03 K/uL (0.00-0.30); Immature Granulocytes Pct Auto 0.5 %; Lymphocytes Absolute Auto 2.02 K/uL (0.90-2.90); Mean Corpuscular HGB Conc 32 gm/dL (32-36); Mean Corpuscular Hemoglobin 32 pg (26-34); Mean Corpuscular Volume 100 fL (80-100); RDW Coefficient of Variation % 12.8 % (11.5-15.5); Red Blood Count* 3.77 m/uL (4.00-5.20); White Blood Count* 5.73 K/uL (4.50-11.00)
[2025-03-19 17:43] LABS: Slide Review Reflex No
--- NOTE | 2025-03-19 17:45 | ED_ITS ---
HPI - Chest Pain General Date Seen: 03/19/25 Chief Complaint: Chest Pain Stated Complaint: chest pain Time Seen by Provider: 03/19/25 16:47 Source: patient and EMS Mode of arrival: EMS Limitations: no limitations History of Present Illness HPI narrative: Patient is a 74-year-old female presenting to the emergency department for chest pain. She states she has been having chest pain to day and has been on and off. She states seems to come on randomly. She is mostly notice it in the right upper chest but states the pain is now radiated to the left side of her chest. Has had pain like this before and has had any evaluated with no abnormality seen she states. Unsure how long ago that was. States there is no associated shortness of breath. Is unable to tell me how long each episode of chest pain last. States the only reason she total do about it is that she [facility] was seeing another patient and her intermediate facility in asked if they could evaluate her also. Denies fevers, chills, abdominal pain, lightheadedness, dizziness, weakness, numbness. She describes it as a heavy sensation. She has no personal history of heart disease but this states his family history of heart disease. No history of diabetes. She does have history of high blood pressure and hyperthyroidism. Related Data Home Medications ?Medication ?Instructions ?Recorded ?Confirmed Unobtainable 03/19/25 03/19/25 Allergies Allergy/AdvReac Type Severity Reaction Status Date / Time No Known Drug Allergies Allergy Verified 03/19/25 17:21 Exam Const Vital Signs, click to edit/add: Vital Signs - 24 hr 03/19/25 16:36 03/19/25 16:45 03/19/25 17:05 Temperature 98 F Pulse Rate 57 L 55 L Pulse Rate [Right Pulse Oximeter] 59 L Respiratory Rate 16 12 Blood Pressure Blood Pressure [Right Upper Arm] 124/79 Pulse Oximetry 99 98 96 Oxygen Delivery Method Room Air 03/19/25 17:15 03/19/25 17:30 03/19/25 17:42 Temperature Pulse Rate 56 L 54 L Pulse Rate [Right Pulse Oximeter] Respiratory Rate 12 14 21 Blood Pressure 131/78 Blood Pressure [Right Upper Arm] Pulse Oximetry 94 100 Oxygen Delivery Method 03/19/25 17:45 03/19/25 18:00 03/19/25 18:02 Temperature Pulse Rate 51 L 52 L 52 L Pulse Rate [Right Pulse Oximeter] Respiratory Rate 14 18 18 Blood Pressure 137/69 Blood Pressure [Right Upper Arm] Pulse Oximetry 99 99 100 Oxygen Delivery Method 03/19/25 18:03 03/19/25 18:15 03/19/25 18:24 Temperature Pulse Rate 53 L 50 L Pulse Rate [Right Pulse Oximeter] Respiratory Rate 17 12 14 Blood Pressure Blood Pressure [Right Upper Arm] Pulse Oximetry 95 99 Oxygen Delivery Method 03/19/25 18:45 Temperature Pulse Rate Pulse Rate [Right Pulse Oximeter] Respiratory Rate 14 Blood Pressure Blood Pressure [Right Upper Arm] Pulse Oximetry Oxygen Delivery Method Course Vital Signs Vital signs: Initial Vital Signs Temperature 98 F 03/19/25 16:36 Temperature Source Temporal Artery Scan 03/19/25 16:36 Pulse Rate 59 L 03/19/25 16:36 Pulse Rhythm Regular 03/19/25 16:36 Pulse Strength 3+ Normal 03/19/25 16:36 Respiratory Rate 16 03/19/25 16:36 Blood Pressure 124/79 03/19/25 16:36 Blood Pressure Mean 94 03/19/25 16:36 Blood Pressure Position Semi-Fowlers 03/19/25 16:36 Pulse Oximetry 99 03/19/25 16:36 Oxygen Delivery Method Room Air 03/19/25 16:36 Vital Signs Temperature 98 F 03/19/25 16:36 Pulse Rate 59 L 03/19/25 16:36 Respiratory Rate 16 03/19/25 16:36 Blood Pressure 124/79 03/19/25 16:36 Pulse Oximetry 99 03/19/25 16:36 Oxygen Delivery Method Room Air 03/19/25 16:36 Temperature 98 F 03/19/25 16:36 Pulse Rate 50 L 03/19/25 18:15 Respiratory Rate 14 03/19/25 18:45 Blood Pressure 137/69 03/19/25 18:02 Pulse Oximetry 99 03/19/25 18:15 Oxygen Delivery Method Room Air 03/19/25 16:36 Medications Administered Medications: Discontinued Medications Generic Name Dose Route Start Last Admin Trade Name Freq PRN Reason Stop Dose Admin Aspirin 324 mg 03/19/25 16:55 03/19/25 17:21 Aspirin 81 Mg Tab.Chew PO 03/19/25 16:56 324 mg ONCE ONE Administration Nitroglycerin 0.4 mg 03/19/25 16:55 03/19/25 17:21 Nitroglycerin 0.4 Mg Tab.Subl SUBLINGUAL 03/19/25 16:56 0.4 mg ONCE ONE Administration MDM - Chest Pain MDM Narrative Medical decision making narrative: Patient is a 74-year-old female presenting to the emergency department for chest pain. The differential diagnosis of chest pain is broad and includes common etiologies such as musculoskeletal strain, GERD, pneumonia, etc. More serious etiologies considered include PE, coronary artery disease, pneumothorax, aortic dissection, aortic aneurysm. Will do a D-dimer to look for signs of PE. EKG and troponin or to look for signs of coronary artery disease or other arrhythmias. Viral swabs ordered. She looks otherwise stable my concern for aortic aneurysm or dissection are low. Chest x-ray ordered for signs of pneumonia or pneumothorax. Was given aspirin and a nitro. Lab work returned showing no acute concerning abnormalities. EKG interpreted by myself shows no concerning abnormalities. Troponin is within normal limits. Will repeat troponin as really hard to say how long symptoms have been going on for. Again she states she has had the symptoms in the past. She is unsure she has ever had a stress test. She does think she got a little bit better after the aspirin and nitro but the pain is not completely gone yet. Repeat troponin 2 hours later shows no change. Chest x-ray interpreted by myself and the radiologist showed no acute concerning abnormalities. This time I cannot say for certain was causing chest pain. She has a hard time saying if the medicine really did help her pain or not. I did speak to her about doing an outpatient stress test. She wants to speak to her primary care provider about this. This is understandable. I do believe she is safe for discharge. She is agreeable to this plan. Lab Data Labs: Lab Results 03/19/25 03/19/25 03/19/25 Range/Units 16:55 17:20 18:55 WBC 5.73 (4.50-11.00) K/uL RBC 3.77 L (4.00-5.20) m/uL Hgb 12.0 (12.0-16.0) gm/dL Hct 37.7 (33.0-51.0) % MCV 100 (80-100) fL MCH 32 (26-34) pg MCHC 32 (32-36) gm/dL RDW Coeff of Shivani 12.8 (11.5-15.5) % Plt Count 291 (140-440) K/uL Neut % (Auto) 48.3 (42.0-72.0) % Lymph % (Auto) 35.3 (20-44) % [place] % (Auto) 13.3 H (0.0-11.0) % Eos % (Auto) 2.1 (0.0-7.0) % Baso % (Auto) 0.5 (0.0-3.0) % Neut # (Auto) 2.77 (1.7-7.0) K/uL Lymph # (Auto) 2.02 (0.90-2.90) K/uL [place] # (Auto) 0.80 (0.00-0.90) K/UL Eos # (Auto) 0.12 (0.00-0.50) K/uL Baso # (Auto) 0.03 (0.00-0.30) K/uL Abs Immat Gran (auto) 0.03 (0.00-0.30) K/uL Imm/Tot Granulo (auto) 0.5 % D-Dimer Quant (PE/DVT) 0.44 (0.00-0.50) ug/ml Sodium 133 L (135-149) mmol/L Potassium 4.3 (3.6-5.1) mmol/L Chloride 104 (96-114) mmol/L Carbon Dioxide 26 (20-32) mmol/L Anion Gap 3 L (7-15) mEq/L BUN 13 (7-30) mg/dL Creatinine 0.8 (0.5-1.5) mg/dL Estimated GFR 77 ml/min Glucose 63 (60-115) mg/dL Calcium 9.9 (8.4-10.6) mg/dL Magnesium 2.3 (1.5-2.6) mg/dL POC Troponin I High Sensi < 2.9 L < 2.9 L (2.9-13.0) pg/mL SARS-CoV-2 (PCR) Negative SARS-CoV-2 (Negative) Influenza Type A (PCR) Negative PCR FLU A (Negative) Influenza Type B (PCR) Negative PCR FLU B (Negative) RSV (PCR) Negative PCR RSV (Negative) Imaging Data Chest x-ray: Attestation: I have reviewed the pertinent imaging results. Radiologist's impression: No definite focal pulmonary consolidation. Slight elevation of the left hemidiaphragm. Dictated by Yoel Ohara MD @ 03/19/2025 5:12:49 PM ECG Data Attestation: I personally reviewed and interpreted this ECG as follows: Prior ECG tracings: not available for review Interpretation: Sinus bradycardia with a rate of 55 beats per minute, normal intervals, normal axis, no ST or T-wave abnormalities. Discharge Plan Discharge Clinical Impression: Atypical chest pain Patient Disposition: Home, Self-Care Condition: Stable Instructions: Chest Pain (DC) Additional Instructions: At this time I cannot say for certain what is causing your chest pain. I do believe he should have close follow-up with the primary care provider. Call them when they are open neck is to schedule an appointment as soon as possible. I do recommend talking to a but do an outpatient stress test. Will likely need a Lexiscan is she will be unable to walk on a treadmill. Also speak to them about doing an echocardiogram at the same time. Please return immediately to the emergency department for any new or worsening symptoms or if the chest pain comes back. Prescriptions: No Action Unobtainable Follow Up/Referrals: Provider,Not a Local [Primary Care Provider, Family Practice] Stand Alone Forms: [facility] Info Instructions
[2025-03-19 17:48] LABS: Chloride* 104 mmol/L (96-114); Potassium* 4.3 mmol/L (3.6-5.1); Sodium* 133 mmol/L (135-149)
[2025-03-19 17:51] LABS: Anion Gap 3 mEq/L (7-15); Blood Urea Nitrogen* 13 mg/dL (7-30); Calcium* 9.9 mg/dL (8.4-10.6); Carbon Dioxide* 26 mmol/L (20-32); Creatinine* 0.8 mg/dL (0.5-1.5); Estimated Glomerular Filt Rate 77 ml/min; Glucose* 63 mg/dL (60-115)
[2025-03-19 17:54] LABS: D Dimer Quantitative* 0.44 ug/ml (0.00-0.50)
[2025-03-19 18:18] LABS: PCR FLU A Negative PCR FLU A (Negative); PCR FLU B Negative PCR FLU B (Negative); PCR RSV Negative PCR RSV (Negative); SARS PCR* Negative SARS-CoV-2 (Negative)
== END 2025-03-19 21:10 | disposition home or self-care (01) ==
PROVIDERS: Emergency Provider Student in an Organized Health Care Education/Training Program
DX: R07.89 Other chest pain (principal); Z82.49 Family history of ischemic heart disease and other diseases of the circulatory system
CPT/HCPCS: 36415; 71046; 80048; 83735; 84484; 85025; 85379; 87631; 93005; 99284; 99285; A9270